=== PATIENT | female | born 1965 | race Caucasian/White ===

== ENCOUNTER → 2021-04-22 16:40 | Outpatient (BNVA) | payer SELFPAY | PROVIDERS: Visit Provider Nurse Practitioner Family | DX: Z20.822 Contact with and (suspected) exposure to COVID-19 (principal); J06.9 Acute upper respiratory infection, unspecified | CPT/HCPCS: 87635 ==

== ENCOUNTER 2021-06-05 13:30 | Emergency (ER) | payer SELFPAY ==
[2021-06-05 13:31] VITALS: BP 157/104; PULSE 105; RESP 14; O2SAT 94
--- NOTE | 2021-06-05 13:54 | W.ED.ALCOHOL ---
HPI - Alcohol General: Chief Complaint: Extremity Injury, Lower Stated Complaint: INTOXICATED Time Seen by Provider: 06/05/21 13:34 Source: patient Mode of arrival: EMS Limitations: no limitations History of Present Illness: Patient is a 56-year-old female who presents to ED today after she requested to be brought to the ED. According to patient she is homeless and was staying at the [facility] but states she was kicked out due to her being intoxicated. She states last night she was staying in a hotel room but apparently missed the checkout time and refused to leave her room so the hotel contacted the police. Police offered to bring patient to retirement for safekeeping and holding as she is homeless and it is currently below freezing temperatures and icing outside but patient refused. She states she wanted to come to the ED. upon arrival to the emergency department she has no physical complaints. She tells me she wants to go home although admittedly does not have a home. She states she has no friends or family to contact for a ride. MD complaint: alcohol intoxication Last drink: Hours (ago) Chronic alcohol use: Yes Previous visits for alcohol intoxication: No Recent trauma: No Associated symptoms: Reports no associated symptoms; Deny abdominal pain or seizure-like activity Treatments prior to arrival: none Review of Systems Const: Denies: fever(s), chills, body aches, fatigue or malaise Eyes: Denies: change in vision or blurry vision Card: Denies: chest pain Resp: Denies: dyspnea GI: Denies: abdominal pain Musc: Denies: neck pain, back pain, extremity pain or joint pain Skin/Breast: Denies: rash Neuro: Denies: headache(s), numbness in extremities, weakness in extremities, sensory changes, lack of coordination, difficulty walking, frequent falls, dizziness, vertigo, confusion, difficulty communicating thoughts or seizure-like activity [facility] ED PFSH: Medical History COPD (chronic obstructive pulmonary disease) HTN (hypertension) with goal to be determined Physical Exam Const: COMMON NORMALS: no acute distress, patient oriented x3 and alert GENERAL APPEARANCE: cooperative, disheveled and odor of alcohol detected ORIENTATION/CONSCIOUSNESS: Yes awake, Yes oriented to person, Yes oriented to place and Yes oriented to time HENMT: COMMON NORMALS: normocephalic and atraumatic HEAD & SCALP: normal to inspection, normocephalic and atraumatic Resp: COMMON NORMALS: normal respiratory effort and clear to auscultation bilaterally AUSCULTATION: clear to auscultation bilaterally Cardio: COMMON NORMALS: regular rhythm RATE: tachycardic (mild) RHYTHM: regular rhythm GI: COMMON NORMALS: Normal to inspection, nondistended, normoactive bowel sounds present, Soft to palpation, non-tender, No hepatosplenomegaly present and no masses PALPATION: Yes Soft to palpation and Yes No hepatosplenomegaly present Extremity: GENERAL: Yes normal exam except as noted Neuro: JOVANA COMA SCALE: document GCS findings Amelia coma scale eye opening: Spontaneous Amelia coma scale verbal response: Orientated Amelia coma scale motor response: Obey commands Amelia coma scale total score: 15 COMMON NORMALS: patient oriented x3, CN's II-XII intact bilaterally, moves all extremities, no focal motor deficits, no sensory deficits noted and gait normal SENSORIUM/ORIENTATION: Yes alert, Yes oriented to person, Yes oriented to place and Yes oriented to time Psych: COMMON NORMALS: denies hallucinations, denies homicidal ideation and denies suicidal ideation Course Vital Signs: Vital signs: Vital Signs Pulse Rate 105 H 06/05/21 13:31 Respiratory Rate 14 06/05/21 13:31 Blood Pressure 157/104 06/05/21 13:31 Pulse Oximetry 94 06/05/21 13:31 MDM - Alcohol Medical Decision Making Patient has no physical complaints at this time from ED address from an ED standpoint. I have offered to call any family or friend contacts for a ride however she states she does not have anybody that could come get her. She unfortunately has already been kicked out of our local homeless senior care as she drank knowing they had a zero tolerance policy. She states she has no money to pay for hotel room. I have offered her on several times to contact the retirement on her behalf to see if they would be willing to allow her to stay there for the evening but patient adamantly refuses stating she does not want to go. Patient is requesting discharge at this time. Patient was able to get up and ambulate on her own around her room and in the emergency department. Her gait is steady. I did have security come and talk to her to see if they had any other options. Discharge Plan Discharge Patient Disposition: Home Clinical Impression: Alcohol intoxication, Homeless Condition: Stable Prescriptions: No Action No Known Home Medications 0RF Discharge Orders: Discharge ED (Routine); Ordered 06/05/21 Ordered By: Erinn Patel Coding Level of Care Code ED Direct Sales Consultant for Chadwick Boateng
--- NOTE | 2021-06-05 14:51 | PC.NURSE ---
DISCHARGED PATIENT TO LOBBY- WITH 4 BAGS OF BELONGINGS, PATIENT ABLE TO AMBULATE- WAITING IN LOBBY
== END 2021-06-05 14:56 | disposition home or self-care (01) ==
PROVIDERS: Emergency Provider Physician Assistant
DX: F10.129 Alcohol abuse with intoxication, unspecified (principal); Z59.00 Homelessness unspecified; J44.9 Chronic obstructive pulmonary disease, unspecified; I10 Essential (primary) hypertension
CPT/HCPCS: 99282

== ENCOUNTER 2023-09-06 17:58 | Observation (INO) | payer MEDICAID, SELFPAY ==
[2023-09-06 17:59] VITALS: BP 150/99; PULSE 129; RESP 18; TEMP 36.7; O2SAT 90; BMI 25.0
--- NOTE | 2023-09-06 18:03 | XRR_ITS ---
PROCEDURE INFORMATION: Exam: XR Chest Exam date and time: 09/06/2023 6:28 PM Age: 58 years old Clinical indication: Other: RT sided weakness; Additional info: Right sided weakness TECHNIQUE: Imaging protocol: Radiologic exam of the chest. Views: 1 view. COMPARISON: No relevant prior studies available. FINDINGS: Lungs: Cdpyf-tkjjgdf-ufio-left mid to lower lung interstitial hazy densities. A few minute calcified lung nodules are seen incidentally. Underlying COPD. There are no priors. Pleural spaces: Unremarkable. No pleural effusion. No pneumothorax. Heart/Mediastinum: Unremarkable. No cardiomegaly. Bones/joints: Unremarkable. XR/XR chest 1V portable [id number] IMPRESSION: COPD with ruihy-hooitra-eyvh-left lower lung areas of atelectasis, scarring or pneumonitis.
--- NOTE | 2023-09-06 18:03 | CTR_ITS ---
PROCEDURE INFORMATION: Exam: CT Head Without Contrast Exam date and time: 09/06/2023 6:19 PM Age: 58 years old Clinical indication: Stroke-like symptoms; Altered mental status/memory loss; Additional info: Symptoms of acute stroke TECHNIQUE: Imaging protocol: Computed tomography of the head without contrast. Radiation optimization: All CT scans at this facility use at least one of these dose optimization techniques: automated exposure control; mA and/or kV adjustment per patient size (includes targeted exams where dose is matched to clinical indication); or iterative reconstruction. Other technique: STROKE PROTOCOL was implemented. COMPARISON: No relevant prior studies available. RADIATION DOSE METRICS: Total DLP (mGy-cm): 1023.14 FINDINGS: Brain: No focal hemorrhage or midline shift is identified. Left lower basal ganglia probable perivascular space. Advanced diffuse vascular calcification noted. Cerebral ventricles: No ventriculomegaly or evidence of acute hydrocephalus. Paranasal sinuses: The partially assessed sinuses are grossly clear. Mastoid air cells: Visualized mastoid air cells are well aerated. Bones: Unremarkable. No acute fracture. Soft tissues: Unremarkable. CT/CT head thrombolytic [id number] IMPRESSION: No acute intracranial abnormality. ASSESSMENT: ASPECTS ([place] Stroke Program Early CT Score) is 10.
--- NOTE | 2023-09-06 18:04 | ECG_ITS ---
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 Measurements Intervals [place] Rate: 124 P: 74 DC: 120 QRS: 75 QRSD: 77 T: 77 QT: 321 QTc: 462 Interpretive Statements SINUS TACHYCARDIA ABNORMAL RHYTHM ECG No previous ECG available for comparison Electronically Signed On 09-07-2023 8:35:26 CDT by Emmanuel Doss M.D. [email or web address] [email or web address] university of [facility]led[facility] medical [email or web address].[employer]/store/OM/[id number]
--- NOTE | 2023-09-06 18:05 | ED_ITS ---
HPI - Neuro Symptoms/Deficit 2 General: Chief Complaint: Weakness Stated Complaint: RIGHT SIDE WEAKNESS Time Seen by Provider: 09/06/23 18:03 History of Present Illness: Patient presents here by EMS with complaints of right-sided weakness. This started about noon today 6 hours ago but got worse at about 4 PM roughly 2 hours ago. EMS stated when they picked her up she did have weakness on her right arm and right lower extremity and was unable to get up from a seated position on her own. Upon arrival to the ER patient does not have weakness on right upper or lower extremity her NIH is 0 she does appear to be inebriated. Onset (ago): hour(s) Time: 12:00 Last Observed Normal: 12:00 Timing confirmed by: other (Patient) Location: right arm and right leg History of same: No Severity: mild Quality: weak Relieving factors: none Exacerbating factors: none On Anticoagulants: No Associated symptoms: Reports weakness Treatments Prior to Arrival: none Review of Systems 2 General: Reports: 10 or more systems reviewed and unremarkable except in HPI and below PFSH ED 2 PFSH: Medical History HTN (hypertension) with goal to be determined COPD (chronic obstructive pulmonary disease) NIH stroke score 2 NIHSS: Level Of Consciousness - 1a: 0 Level Of Consciousness Questions - 1b: Both Correct Level Of Consciousness Commands - 1c: Both Correct Best Gaze - 2: Normal Visual Lujan - 3: No Visual Loss Facial Palsy - 4: N ormal Motor Arm Right - 5: No Drift Motor Arm Left - 5: No Drift Motor Leg Right - 6: No Drift Motor Leg Left - 6: No Drift Limb Ataxia - 7: A bsent Sensory - 8: Normal Best Language - 9: No Aphasia Dysarthia - 10: Normal Extinction And Inattention - 11: 0 Score: Total Score: 0 Physical Exam 2 Const: COMMON NORMALS: no acute distress, average body habitus, patient oriented x3, no limitations, healthy appearing, alert and well nourished HENMT: COMMON NORMALS: normocephalic, atraumatic, hearing grossly normal bilaterally, external ears normal, Normal external nose present, moist oral mucous membranes and oropharynx normal HEAD & SCALP: normocephalic and atraumatic NOSE: Normal external nose present EXTERNAL EAR: Yes external ears normal Eye: COMMON NORMALS: Equal, round and reactive pupils present, EOMs intact bilaterally, conjunctivae normal and no scleral icterus CONJUNCTIVA: Yes conjunctivae normal PUPIL: Yes Equal, round and reactive pupils present Neck/C-Spine: COMMON NORMALS: full ROM, no lymphadenopathy, supple, no meningeal signs, no JVD and Thyroid normal THYROID: Thyroid normal Chest: COMMONS NORMALS: normal inspection of the chest and normal palpation of entire chest wall Resp: COMMON NORMALS: normal respiratory effort, No retractions, No use of accessory muscles and clear to auscultation bilaterally AUSCULTATION: clear to auscultation bilaterally Cardio: COMMON NORMALS: no JVD, regular rhythm, S1 normal heart sound present, S2 normal heart sound present, No gallops present (Cardio), No clicks present (Cardio), No murmurs present (Cardio) and No rub (Cardio); negative for regular rate (Mildly tachycardic) RATE: abnormal rate (Mildly tachycardic) RHYTHM: regular rhythm HEART SOUNDS: S1 normal heart sound present and S2 normal heart sound present GI: COMMON NORMALS: Normal to inspection, nondistended, normoactive bowel sounds present, Soft to palpation, non-tender, No hepatosplenomegaly present and no masses PALPATION: Yes Soft to palpation and Yes No hepatosplenomegaly present Extremity: NARRATIVE EXTREMITY EXAM: Equal strength in all 4 extremities bilaterally symmetrical Neuro: COMMON NORMALS: patient oriented x3, CN's II-XII intact bilaterally, moves all extremities, no focal motor deficits and no sensory deficits noted SENSORIUM/ORIENTATION: Yes alert MENINGEAL SIGNS: Yes no meningeal signs Course 2 Vital Signs: Vital signs: Vital Signs Temperature 98.0 F 09/06/23 17:59 Pulse Rate 129 H 09/06/23 17:59 Respiratory Rate 18 09/06/23 17:59 Blood Pressure 150/99 09/06/23 17:59 Pulse Oximetry 90 09/06/23 17:59 MDM - Neuro Symptoms/Deficit Medical Decision Making Patient ordered typical stroke workup with NIH as lab work chest x-ray head CT EKGs, white count was normal, potassium 3.1, anion gap 23.1, C-reactive protein 5.3, urine drug screen positive for marijuana, alcohol level 105, chest x-ray was read as COPD with areas of atelectasis scarring or pneumonitis, head CT was negative. Patient's symptoms were verified by EMS even noted resolved by the time she arrived here this would be consistent with a TIA which puts her at a high risk for CVA, patient will be placed in observation for further evaluation and treatment. Dr. Mari was consulted and agrees. Lab Data 09/06/23 17:44 09/06/23 17:44 Radiology Impressions Chest X-Ray 09/06/23 18:03 IMPRESSION: COPD with yqsfz-oilmaqu-ybhp-left lower lung areas of atelectasis, scarring or pneumonitis. Head CT 09/06/23 18:03 IMPRESSION: No acute intracranial abnormality. ASSESSMENT: ASPECTS ([place] Stroke Program Early CT Score) is 10. Laboratory Results WBC 10.72 10^3/uL (3.29-11.43) 09/06/23 17:44 RBC 6.08 10^6/uL (3.85-5.65) H 09/06/23 17:44 Hgb 17.70 g/dL (11.27-16.99) H 09/06/23 17:44 Hct 53.6 % (36-47) H 09/06/23 17:44 MCV 88.2 fl (85-98) 09/06/23 17:44 MCH 29.1 pg (27-33) 09/06/23 17:44 MCHC 33.0 g/dL (30-55) 09/06/23 17:44 RDW 14.8 % (12.1-15.1) 09/06/23 17:44 Plt Count 482 10^3/cmm (157-399) H 09/06/23 17:44 MPV 9.8 fL (7.4-10.4) 09/06/23 17:44 Neut % (Auto) 73.5 % 09/06/23 17:44 Lymph % (Auto) 15.0 % 09/06/23 17:44 [place] % (Auto) 9.8 % 09/06/23 17:44 Eos % (Auto) 0.7 % 09/06/23 17:44 Baso % (Auto) 0.5 % 09/06/23 17:44 Neut # (Auto) 7.88 10^3/uL (1.8-7.7) H 09/06/23 17:44 Lymph # (Auto) 1.6 10^3/uL (0.8-4.8) 09/06/23 17:44 [place] # (Auto) 1.1 10^3/uL (0.2-0.9) H 09/06/23 17:44 Eos # (Auto) 0.1 10^3/uL (0.0-0.8) 09/06/23 17:44 Baso # (Auto) 0.1 10^3/uL (0.0-0.1) 09/06/23 17:44 Nucleated RBC % (auto) 0 % 09/06/23 17:44 Nucleated RBCs # 0.0 /100WBC 09/06/23 17:44 PT 12.80 SECONDS (12.1-14.9) 09/06/23 17:44 INR 0.94 (0.8-1.2) 09/06/23 17:44 APTT 33.0 SECONDS (23.9-36.7) 09/06/23 17:44 Sodium 141 mmol/L (136-145) 09/06/23 17:44 Potassium 3.1 mmol/L (3.5-5.1) L 09/06/23 17:44 Chloride 101 mmol/L (98-107) 09/06/23 17:44 Carbon Dioxide 20 mmol/L (22-29) L 09/06/23 17:44 Anion Gap 23.1 (5-19) H 09/06/23 17:44 BUN 7 mg/dL (6-20) 09/06/23 17:44 Creatinine 0.8 mg/dL (0.5-0.9) 09/06/23 17:44 GFR Calculation 74.2 mL/min (90-130) L 09/06/23 17:44 Glucose 96 mg/dL (65-115) 09/06/23 17:44 POC Glucose 111 mg/dL (70-110) H 09/06/23 18:25 Calculated Osmolality 290 mOsm/kg (285-295) 09/06/23 17:44 Calcium 8.2 mg/dL (8.5-10.5) L 09/06/23 17:44 Magnesium 2.2 mg/dL (1.7-2.3) 09/06/23 17:44 Total Bilirubin 0.4 mg/dL (0.15-1.2) 09/06/23 17:44 AST 16 U/L (0-32) 09/06/23 17:44 ALT 14 U/L (0-33) 09/06/23 17:44 Alkaline Phosphatase 121 U/L (35-105) H 09/06/23 17:44 Troponin T Baseline 9 ng/L (0-10) 09/06/23 17:44 C-Reactive Protein 5.3 mg/L (0.0-4.9) H 09/06/23 17:44 Total Protein 7.5 g/dL (6.6-8.7) 09/06/23 17:44 Albumin 4.1 g/dL (3.5-5.2) 09/06/23 17:44 Globulin 3.4 g/dL (1.3-4.6) 09/06/23 17:44 TSH 3.06 uIU/mL (0.27-4.20) 09/06/23 17:44 Urine Color Yellow (Yellow) 09/06/23 19:37 Urine Appearance Cloudy (CLEAR) A 09/06/23 19:37 Urine pH 7 (5-7) 09/06/23 19:37 Ur Specific [place] 1.010 (1.005-1.030) 09/06/23 19:37 Urine Protein 1+ (Negative) H 09/06/23 19:37 Urine Glucose (UA) Norm (Normal) 09/06/23 19:37 Urine Ketones 1+ (Negative) H 09/06/23 19:37 Urine Blood Neg (Negative) 09/06/23 19:37 Urine Nitrate Negative (Negative) 09/06/23 19:37 Urine Bilirubin 1+ (Negative) H 09/06/23 19:37 Urine Urobilinogen Neg mg/dL (Negative) 09/06/23 19:37 Ur Leukocyte Esterase 1+ (Negative) H 09/06/23 19:37 Urine RBC 0-4 /hpf (0-2) H 09/06/23 19:37 Urine WBC 5-10 /hpf (0-5) H 09/06/23 19:37 Ur Squamous Epith Cells 5-10 /hpf (0-5) H 09/06/23 19:37 Amorphous Sediment Not Reportable 09/06/23 19:37 Urine Bacteria 1+ /hpf (NONE) H 09/06/23 19:37 Urine Mucus 1+ /hpf 09/06/23 19:37 Urine Opiates Screen Negative ng/mL (Negative) 09/06/23 19:37 Ur Barbiturates Screen Negative ng/mL (Negative) 09/06/23 19:37 Ur Phencyclidine Scrn Negative ng/mL (Negative) 09/06/23 19:37 Ur Amphetamines Screen Negative ng/mL (Negative) 09/06/23 19:37 U Benzodiazepines Scrn Negative ng/mL (Negative) 09/06/23 19:37 Urine Cocaine Screen Negative ng/mL (Negative) 09/06/23 19:37 U Marijuana (THC) Screen Positive ng/mL (Negative) H 09/06/23 19:37 Ethyl Alcohol 105 mg/dL (0-10) H 09/06/23 17:44 All radiology interpretation(s) finalized by discharge EKG Data EKG 1: I personally reviewed and interpreted this EKG as follows: EKG interpretation date: 09/06/23 EKG interpretation time: 18:12 Prior EKG tracings: not available for review Interpretation: Ventricular rate 124 bpm, KS interval 120, QRS duration 77, QTc of 395 Discharge Plan Discharge Patient Disposition: Placed in Observation Clinical Impression: Brain TIA Alcohol intoxication Qualifiers: Complication of substance-induced condition: uncomplicated Qualified Code(s): F 10.920 - Alcohol use, unspecified with intoxication, uncomplicated Coding Level of Care Code ED Care Manager Cna for Chadwick Boateng
[2023-09-06 18:22] LABS: Basophils # 0.1 10^3/uL (0.0-0.1); Basophils % 0.5 %; Eosinophils # 0.1 10^3/uL (0.0-0.8); Eosinophils % 0.7 %; Hematocrit 53.6 % (36-47); Lymphocytes # 1.6 10^3/uL (0.8-4.8); Mean Corpuscular Hemoglobin 29.1 pg (27-33); Mean Corpuscular Volume 88.2 fl (85-98); Mean Platelet Volume 9.8 fL (7.4-10.4); Monocytes # 1.1 10^3/uL (0.2-0.9); Monocytes % 9.8 %; Neutrophils # 7.88 10^3/uL (1.8-7.7); Neutrophils % 73.5 %; Nucleated Red Blood Cells % 0 %; Platelet Count 482 10^3/cmm (157-399); Red Blood Count 6.08 10^6/uL (3.85-5.65); Red Cell Distribution Width 14.8 % (12.1-15.1); White Blood Count 10.72 10^3/uL (3.29-11.43)
[2023-09-06 18:29] LABS: Glucose Point of Care 111 mg/dL (70-110)
[2023-09-06 18:30] LABS: INR 0.94 (0.8-1.2)
[2023-09-06] MEDS: sodium chloride 0.9% 1,000 ML 999 ML IV (18:33)
[2023-09-06 18:43] LABS: Troponin(5th) Baseline 9 ng/L (0-10)
[2023-09-06 18:50] LABS: Alanine Aminotransferase 14 U/L (0-33); Albumin Level 4.1 g/dL (3.5-5.2); Alcohol Level 105 mg/dL (0-10); Alkaline Phosphatase 121 U/L (35-105); Anion Gap 23.1 (5-19); Aspartate Amino Transferase 16 U/L (0-32); Blood Urea Nitrogen 7 mg/dL (6-20); C Reactive Protein 5.3 mg/L (0.0-4.9); Calcium 8.2 mg/dL (8.5-10.5); Carbon Dioxide 20 mmol/L (22-29); Chloride 101 mmol/L (98-107); Creatinine Clr Calc Pharmacy 67.4718; Globulin 3.4 g/dL (1.3-4.6); Glomerular Filtration Rate 74.2 mL/min (90-130); Glucose 96 mg/dL (65-115); Magnesium 2.2 mg/dL (1.7-2.3); Osmolality Calculated 290 mOsm/kg (285-295); Potassium 3.1 mmol/L (3.5-5.1); Sodium 141 mmol/L (136-145); Thyroid Stimulating Hormone 3.06 uIU/mL (0.27-4.20); Total Bilirubin 0.4 mg/dL (0.15-1.2); Total Protein 7.5 g/dL (6.6-8.7)
[2023-09-06 19:54] LABS: Protein Urine 1+ (Negative); Urine Appearance Cloudy (CLEAR); Urine Color Yellow (Yellow); pH Urine 7 (5-7)
[2023-09-06 19:55] LABS: Add Urine Microscopic? YES; Amphetamines Screen Urine Negative (Negative); Bacteria Urine 1+ /hpf; Barbiturates Screen Urine Negative (Negative); Benzodiazepines Screen Urine Negative (Negative); Bilirubin Urine 1+ (Negative); Blood Urine Neg (Negative); Cocaine Screen Urine Negative (Negative); Glucose Urine UA Norm (Normal); Ketones Urine 1+ (Negative); Leukocyte Esterase Urine 1+ (Negative); Mucus Urine 1+ /hpf; Nitrate Urine Negative (Negative); Opiate Screen Urine Negative (Negative); PCP Screen Urine Negative (Negative); RBC Urine 0-4 /hpf (0-2); THC Screen Urine Positive (Negative); Urobilinogen Urine Neg (Negative)
[2023-09-06 20:30] LABS: Troponin 5 2HR 9.42 ng/L (0-10); Troponin 5 2HR Delta 0.42 ABS# (0-10)
[2023-09-06 20:38] VITALS: BP 167/144; PULSE 123; RESP 18; O2SAT 90
[2023-09-06] MEDS: LORazepam 2 mg/mL INJ 10 mL MDV 1 MG IVP (20:50)
[2023-09-06 21:14] VITALS: BP 168/110; PULSE 119; RESP 20; TEMP 36.6; O2SAT 95
--- NOTE | 2023-09-06 21:30 | P.HP_ITS ---
Providers/Chief Complaint 2 Admitting Physician: Nichelle Mari MD Chief Complaint: RIGHT SIDE WEAKNESS History of Present Illness Ade Mcpherson is a 58 year old female With past medical history of hypertension and COPD, noncompliant to medication, noncompliant to seeking medical care presented to the hospital today via EMS for right-sided weakness. About 6 to 7 hours ago she was picked up by EMS and at that time did have right-sided weakness and light lower extremity weakness and she was unable to get up from a seated position. On arrival to ER she did not have much symptoms NIH 0 patient appears to be intoxicated. CT head negative for acute bleed. Chest x-ray shows right greater than left lower lung areas of atelectasis scarring or pneumonitis. EKG nonischemic, and gap 23.1, C-reactive protein 5.3, urine drug screen positive for marijuana, alcohol level 105. Patient denies nausea vomiting diarrhea chest pain shortness of breath at this time. She states she does not have any right-sided weakness however when asked that it was the reason for her arrival to ER she states yes she feels slightly weak on that side. Somewhat of a poor historian. Medications/Allergies Home Medications Medication Instructions Recorded Confirmed Last Taken Type No Known Home Medications 04/22/21 04/23/21 Unknown History Allergies Allergy/AdvReac Type Severity Reaction Status Date / Time No Known Allergies Allergy Unverified 04/23/21 11:22 PFSH Acute 2 PFSH: Medical History HTN (hypertension) with goal to be determined COPD (chronic obstructive pulmonary disease) Vitals/I&O/Wt Last Vital Signs Temp 98.0 F 09/06/23 17:59 Pulse 123 H 09/06/23 20:38 Resp 18 09/06/23 20:38 BP 167/144 09/06/23 20:38 Pulse Ox 90 09/06/23 20:38 O2 Del Method Nasal Cannula 09/06/23 21:16 09/06/23 09/06/23 09/06/23 06:59 14:59 22:59 Intake Total 200 / 200 Balance 200 / 200 Weight last 48 hrs Weight 54.431 kg Weight 54.431 kg Physical Exam 2 Narrative: General: Alert oriented x3, patient seen sitting up in bed appearing comfortable. HEENT: Normocephalic, atraumatic, EOMI, breathing room air Cardio: Regular rate rhythm, normal S1-S2 Respiratory: Good bilateral air entry, no wheezes no rhonchi appreciated GI: Abdomen soft, nontender, nondistended, bowel sounds + Extremities: no edema, no cyanosis Neuro: Cranial nerve 2-12 intact, right upper and lower extremity weakness noted 4 out of 5, left side 5 out of 5, gait not tested as patient is currently intoxicated. Follows all commands moves all 4 extremities. Data 09/06/23 17:44 09/06/23 17:44 A&P Assessment and plan (1) Alcohol intoxication: Qualifiers: Complication of substance-induced condition: uncomplicated Qualified Code(s): F10.920 - Alcohol use, unspecified with intoxication, uncomplicated (2) HTN (hypertension) with goal to be determined: (3) Brain TIA: (4) COPD (chronic obstructive pulmonary disease): (5) Hypertension: (6) Hirsutism: Plan #Right-sided weakness #Alcohol intoxication #Agitation, restlessness possibly secondary to above #Probable TIA #COPD, not in exacerbation #Hypertension #Noncompliance ? Says she has a history of high blood pressure but does not take any medications. Currently intoxicated with alcohol level high. Does not complain of any symptoms other than right-sided weakness which she had to be reminded of. ? ABCD score 4. Moderate risk for stroke. ? Check CTA head and neck ? CT head negative for acute bleed or acute infarction ? Placed on CIWA protocol ? Check lipid panel, TSH, hemoglobin A1c ? Check testosterone level. Patient has evidence of hirsutism. She may benefit from endocrinology follow-up as an outpatient ? Check echo ? Placed on telemetry ? Neurochecks every hour ? Add amlodipine 10 mg daily ? Continue to monitor on CIWA protocol. If blood pressure remains high despite Ativan may add second agent with amlodipine. Currently I will hold off. ? UA abnormal however not a clean-catch. Does not report any dysuria or UTI symptoms. Hold off of antibiotics. ? Patient hemoconcentrated. Hemoglobin 17.7, platelets 42, anion gap 23.1. Will place on normal saline 125 cc/h ? Placed on thiamine, folic acid Full code DVT prophylaxis: Heparin SQ twice daily Attestations 2 Medical Necessity Statement*: Observation admission for TIA, alcohol intoxication Diagnoses Alcohol intoxication F10.920 Complication of substance-induced condition: uncomplicated HTN (hypertension) with goal to be determined I10 Brain TIA G45.9 COPD (chronic obstructive pulmonary disease) J44.9 Hypertension I10 Hirsutism L68.0
--- NOTE | 2023-09-06 21:38 | CTR_ITS ---
PROCEDURE INFORMATION: Exam: CTA Head With Contrast, Arteriography Exam date and time: 09/06/2023 10:44 PM Age: 58 years old Clinical indication: Patient HX: RT upper extremity weakness/numbness. ; Additional info: TIA TECHNIQUE: Imaging protocol: Computed tomographic angiography of the head with contrast. Exam focused on the arteries. 3D rendering (Not supervised by radiologist): MIP and/or 3D reconstructed images were created by the technologist. Radiation optimization: All CT scans at this facility use at least one of these dose optimization techniques: automated exposure control; mA and/or kV adjustment per patient size (includes targeted exams where dose is matched to clinical indication); or iterative reconstruction. Contrast material: OMNI 350; Contrast volume: 100 ml; Contrast route: INTRAVENOUS (IV); COMPARISON: CT head thrombolytic [id number] 09/06/2023 6:19 PM RADIATION DOSE METRICS: Total DLP (mGy-cm): 389.12 FINDINGS: ANTERIOR CIRCULATION: Right internal carotid artery: Intracranial segment is patent with no significant stenosis. No aneurysm. Mild cavernous calcified plaque. Right middle cerebral artery: No occlusion or significant stenosis. No aneurysm. Right anterior cerebral artery: No occlusion or significant stenosis. No aneurysm. Left internal carotid artery: Intracranial segment is patent with no significant stenosis. No aneurysm. Mild cavernous calcified plaque. Left middle cerebral artery: No occlusion or significant stenosis. No aneurysm. Left anterior cerebral artery: No occlusion or significant stenosis. No aneurysm. POSTERIOR CIRCULATION: Right vertebral artery: No occlusion or significant stenosis. No aneurysm. Left vertebral artery: No occlusion or significant stenosis. No aneurysm. Basilar artery: No occlusion or significant stenosis. No aneurysm. Right posterior cerebral artery: No occlusion or significant stenosis. No aneurysm. Left posterior cerebral artery: No occlusion or significant stenosis. No aneurysm. Brain: No focal hemorrhage or midline shift identified. Cerebral ventricles: No evidence of ventriculomegaly or hydrocephalus. The ventricles seem age-appropriate. Bones/joints: Unremarkable. No acute fracture. Soft tissues: Unremarkable. PROCEDURE INFORMATION: Exam: CTA Neck With Contrast Exam date and time: 09/06/2023 10:44 PM Age: 58 years old Clinical indication: Patient HX: RT upper extremity weakness/numbness. ; Additional info: TIA TECHNIQUE: Imaging protocol: Computed tomographic angiography of the neck with contrast. Exam focused on the cervical segments of the vasculature. 3D rendering (Not supervised by radiologist): MIP and/or 3D reconstructed images were created by the technologist. Radiation optimization: All CT scans at this facility use at least one of these dose optimization techniques: automated exposure control; mA and/or kV adjustment per patient size (includes targeted exams where dose is matched to clinical indication); or iterative reconstruction. Contrast material: OMNI 350; Contrast volume: 100 ml; Contrast route: INTRAVENOUS (IV); COMPARISON: CT head thrombolytic [id number] 09/06/2023 6:19 PM RADIATION DOSE METRICS: Total DLP (mGy-cm): 389.12 FINDINGS: Right common carotid artery: No stenosis. No dissection or occlusion. Mild carotid bulb plaque. Right internal carotid artery: No stenosis of the extracranial segment. No dissection or occlusion. Right external carotid artery: No occlusion or high-grade stenosis identififed. Left common carotid artery: No stenosis. No dissection or occlusion. Ddxq-tc-bcsruorn carotid bulb plaque. Left internal carotid artery: No stenosis of the extracranial segment. No dissection or occlusion. Left external carotid artery: No occlusion or high-grade stenosis identififed. Right vertebral artery: No stenosis. No dissection or occlusion. Dominant. 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 Its mid to distal portion is small but patent. Lymph nodes: Mild likely reactive mediastinal lymphadenopathy. Soft tissues: No significant soft tissue swelling or other acute finding noted. Bones/joints: No acute fracture. Lungs: Upper lungs show severe scarring and severe emphysematous change. CT/CT angio headneck* [id number] IMPRESSION: No large vessel high-grade stenosis or occlusion. IMPRESSION: 1. No ICA high-grade stenosis or occlusion. 2. 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 Its mid to distal portion is small but patent. This finding is of uncertain age. There are no priors. 3. The exam is motion limited. 4. Severe emphysema. REFERENCES: NASCET CRITERIA. The degree of stenosis in the cervical segment of the internal carotid artery is based on NASCET criteria. Normal is no stenosis. Mild is less than 50% stenosis. Moderate is 50-69% stenosis. Severe is 70% to 99% stenosis. Total occlusion is no detectable patent lumen.
[2023-09-06] MEDS: heparin 5,000 unit/mL INJ 1 mL 5000 UNIT SUBCUT (21:55)
[2023-09-06 22:03] LABS: Estmated Average Glucose 111; Hemoglobin A1C 5.5 % (4.0-6.0)
[2023-09-06 22:07] LABS: Glucose Point of Care 84 mg/dL (70-110)
--- NOTE | 2023-09-06 22:08 | ECG_ITS ---
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 Measurements Intervals [place] Rate: 117 P: 75 CO: 107 QRS: 78 QRSD: 85 T: 76 QT: 330 QTc: 461 Interpretive Statements SINUS TACHYCARDIA WITH SHORT CO INTERVAL POSSIBLE RIGHT ATRIAL ENLARGEMENT [0.25mV P-WAVE] MODERATE ST DEPRESSION [0.05+ mV ST DEPRESSION] Compared to ECG 09/06/2023 18:12:30 Short CO interval now present ST (T wave) deviation now present Electronically Signed On 09-07-2023 8:40:26 CDT by Emmanuel Doss M.D. [email or web address]
[2023-09-06 22:12] LABS: Procalcitonin 0.03 ng/mL (0-0.5); Thyroid Stimulating Hormone 2.03 uIU/mL (0.27-4.20)
[2023-09-06] MEDS: sodium chloride 0.9% 1,000 ML 100 ML IV (22:16)
[2023-09-06 22:23] LABS: Chol HDL Ratio 3.82 mg/dL (0.0-4.40); Cholesterol 149 mg/dL (0-200); HDL Cholesterol 39 mg/dL (60-100); LDL Cholesterol Calculated 78 mg/dL (50-129); Triglycerides 161 mg/dL (0-150); VLDL Cholestrol Calculation 32 mg/dL (0-30)
[2023-09-06 22:30] VITALS: O2SAT 95
[2023-09-06] MEDS: iohexol 350 mg/mL 500 mL Btl (per mL) IV (22:45)
[2023-09-06 23:34] VITALS: PULSE 118
[2023-09-07] VITALS (8 sets, daily range): BP systolic 150–180; BP diastolic 99–119; PULSE 101–113; RESP 18–20; TEMP 36.2–36.4; O2SAT 92–96
[2023-09-07] MEDS: hyDRALAzine 20 mg/mL INJ 1 mL 10 MG IVP (00:54)
[2023-09-07] MEDS: LORazepam 2 mg/mL INJ 10 mL MDV IVP (01:16)
--- NOTE | 2023-09-07 01:28 | ECG_ITS ---
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 Measurements Intervals [place] Rate: 131 P: 76 PA: 127 QRS: 80 QRSD: 72 T: 63 QT: 297 QTc: 439 Interpretive Statements SINUS TACHYCARDIA ST DEPRESSION, CONSIDER SUBENDOCARDIAL INJURY [0.1+ mV ST DEPRESSION] Compared to ECG 09/06/2023 22:08:07 Short PA interval no longer present ST (T wave) deviation still present Electronically Signed On 09-07-2023 8:40:34 CDT by Emmanuel Doss M.D. [id number]
[2023-09-07 02:24] LABS: Troponin 5 6HR 7.41 ng/L (0-10)
[2023-09-07 02:25] LABS: Troponin 5 6HR Delta -1.59 ng/L (0-12)
[2023-09-07] MEDS: labetalol 5 mg/mL SDV 20mL 10 MG IVP (03:43)
[2023-09-07 05:33] LABS: Basophils % 0.4 %; Eosinophils # 0.1 10^3/uL (0.0-0.8); Eosinophils % 0.5 %; Hematocrit 51.1 % (36-47); Lymphocytes # 1.3 10^3/uL (0.8-4.8); Lymphocytes % 12.1 %; Mean Corpuscular HGB Conc 31.9 g/dL (30-55); Mean Corpuscular Hemoglobin 28.7 pg (27-33); Mean Platelet Volume 9.7 fL (7.4-10.4); Monocytes % 9.9 %; Neutrophils # 7.95 10^3/uL (1.8-7.7); Neutrophils % 76.7 %; Nucleated Red Blood Cells % 0 %; Platelet Count 412 10^3/cmm (157-399); Red Blood Count 5.68 10^6/uL (3.85-5.65); Red Cell Distribution Width 14.9 % (12.1-15.1); White Blood Count 10.36 10^3/uL (3.29-11.43)
[2023-09-07 05:47] LABS: INR 0.98 (0.8-1.2)
[2023-09-07 05:53] LABS: Alanine Aminotransferase 13 U/L (0-33); Albumin Level 3.4 g/dL (3.5-5.2); Alkaline Phosphatase 102 U/L (35-105); Blood Urea Nitrogen 7 mg/dL (6-20); Calcium 7.9 mg/dL (8.5-10.5); Carbon Dioxide 21 mmol/L (22-29); Chloride 104 mmol/L (98-107); Creatinine Clr Calc Pharmacy 118.7501; Globulin 3.1 g/dL (1.3-4.6); Glomerular Filtration Rate 127.6 mL/min (90-130); Glucose 84 mg/dL (65-115); Osmolality Calculated 281 mOsm/kg (285-295); Phosphorus 2.6 mg/dL (2.5-4.5); Sodium 137 mmol/L (136-145); Total Bilirubin 0.7 mg/dL (0.15-1.2); Total Protein 6.5 g/dL (6.6-8.7)
[2023-09-07 05:55] LABS: Anion Gap 15.9 (5-19); Aspartate Amino Transferase 18 U/L (0-32); Potassium 3.9 mmol/L (3.5-5.1)
[2023-09-07] MEDS: heparin 5,000 unit/mL INJ 1 mL 5000 UNIT SUBCUT (08:52)
[2023-09-07] MEDS: aspirin 81 mg EC Tablet PO (08:52)
[2023-09-07] MEDS: folic acid 1 mg Tablet PO (08:52)
[2023-09-07] MEDS: clopidogrel 75 mg Tablet PO (08:52)
[2023-09-07] MEDS: multivitamin therapeutic Tablet 1 TAB PO (08:52)
[2023-09-07] MEDS: thiamine 100 mg Tablet PO (08:52)
--- NOTE | 2023-09-07 12:44 | PM.DCS ---
Discharge Providers Date of Admission: 09/06/23 20:17 Date of Discharge: September 07, 2023 Attending Provider at Admission: Nichelle Mari MD Attending Provider at Discharge: Augustine Treadwell MD Diagnoses at Discharge Discharge Diagnosis (1) Alcohol intoxication: Status: Acute Qualifiers: Complication of substance-induced condition: uncomplicated Qualified Code(s): F10.920 - Alcohol use, unspecified with intoxication, uncomplicated (2) HTN (hypertension) with goal to be determined: Status: Acute (3) Brain TIA: Status: Acute (4) COPD (chronic obstructive pulmonary disease): Status: Acute (5) Hypertension: Status: Acute (6) Hirsutism: Status: Acute Reason for Visit Reason for Visit: RIGHT SIDE WEAKNESS Hospital Course Hospital Course Ade Mcpherson is a 58 year old female With past medical history of hypertension and COPD, noncompliant to medication, noncompliant to seeking medical care presented to the hospital today via EMS for right-sided weakness prior in the day. Upon evaluation her right-sided weakness had resolved prior to arrival to the emergency department. Her NIH score was found to be 0. Head CT was negative for any acute findings. Head and neck CTA showed no ICA high-grade stenosis or occlusion. The left proximal vertebral artery was seen occluded at the lower cervical spine and its origin was not observed; however its mid and distal portions were small but patent. This finding was radiographically of uncertain age, however regardless of timing it would not explain her right-sided weakness as this is the posterior circulation. Patient was found to be intoxicated with alcohol which she endorses a long history of alcohol abuse. She was admitted to observation for further monitoring. Her neurological exam remained unchanged with an NIH of 0. She was treated for transient ischemic attack with dual antiplatelet therapy for 21 days followed by monotherapy. She was treated with high intensity statin. MRI imaging was not available given holiday weekend patient was agreeable for close outpatient follow-up for MRI of head as well as MRA of neck to further evaluate proximal neck vertebral artery finding. She was found to have elevated blood pressure consistent with hypertension. She was started on amlodipine. She was not started on further diuretics due to her history of alcoholism and risk of hyponatremia. She was counseled to watch her home blood pressure and bring to her outpatient provider for further titration of antihypertensives. Patient was counseled on alcohol cessation. She was treated with CIWA protocol while being observed. She is scribed multivitamin, thiamine, folic acid at discharge. She was discharged to home in stable condition. She is to follow-up with a primary care provider within 1 week. She was noted to have hirsutism which we will defer management to her PCP. Physical Exam Narrative: General: Patient is awake. Appears chronically ill. Head: Normocephalic. Atraumatic. EOM intact. Neck: No JVD. Cardiovascular: RRR. No gallops. No murmurs. No peripheral edema. Lungs: Clear to auscultation, no use of accessory muscles, no crackles or wheezes. Skin: No jaundice. No rashes. Abdomen: Normal bowel sounds, abdomen soft and nontender. Genito Urinary: Genital exam not performed since complaints not related. Rectal: Rectal exam not performed since no symptoms indicated blood loss. Extremities: No cyanosis or clubbing. Musculoskeletal: 5/5 strength, normal range of motion, no swollen or erythematous joints. Neurological: Strength 5 out of 5 in all extremities. No focal neurological deficits. Cranial nerves II through XII grossly intact. Discharge Data Studies Completed and Pending Completed Studies During Hospitalization Category Date Time Status CT head thrombolytic [id number] Stat Cat Scan 09/06/23 18:03 Completed CTA head neck [CT angio headneck* [id number]] Stat Cat Scan 09/06/23 21:38 Completed XR chest 1V portable [id number] Stat Exams 09/06/23 18:03 Completed Pending at discharge Category Date Time Status CV. echo complete* [id number] Routine Ultrasound 09/07/23 21:36 Taken Radiology Impressions Chest X-Ray 09/06/23 18:03 IMPRESSION: COPD with crmhl-vojfvye-zwao-left lower lung areas of atelectasis, scarring or pneumonitis. Head CT 09/06/23 18:03 IMPRESSION: No acute intracranial abnormality. ASSESSMENT: ASPECTS (Sarahy Stroke Program Early CT Score) is 10. Head/Neck CTA 09/06/23 21:38 IMPRESSION: No large vessel high-grade stenosis or occlusion. IMPRESSION: 1. No ICA high-grade stenosis or occlusion. 2. 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 Its mid to distal portion is small but patent. This finding is of uncertain age. There are no priors. 3. The exam is motion limited. 4. Severe emphysema. REFERENCES: NASCET CRITERIA. The degree of stenosis in the cervical segment of the internal carotid artery is based on NASCET criteria. Normal is no stenosis. Mild is less than 50% stenosis. Moderate is 50-69% stenosis. Severe is 70% to 99% stenosis. Total occlusion is no detectable patent lumen. Laboratory Results WBC 10.36 10^3/uL (3.29-11.43) 09/07/23 05:07 RBC 5.68 10^6/uL (3.85-5.65) H 09/07/23 05:07 Hgb 16.30 g/dL (11.27-16.99) 09/07/23 05:07 Hct 51.1 % (36-47) H 09/07/23 05:07 MCV 90.0 fl (85-98) 09/07/23 05:07 MCH 28.7 pg (27-33) 09/07/23 05:07 MCHC 31.9 g/dL (30-55) 09/07/23 05:07 RDW 14.9 % (12.1-15.1) 09/07/23 05:07 Plt Count 412 10^3/cmm (157-399) H 09/07/23 05:07 MPV 9.7 fL (7.4-10.4) 09/07/23 05:07 Neut % (Auto) 76.7 % 09/07/23 05:07 Lymph % (Auto) 12.1 % 09/07/23 05:07 [place] % (Auto) 9.9 % 09/07/23 05:07 Eos % (Auto) 0.5 % 09/07/23 05:07 Baso % (Auto) 0.4 % 09/07/23 05:07 Neut # (Auto) 7.95 10^3/uL (1.8-7.7) H 09/07/23 05:07 Lymph # (Auto) 1.3 10^3/uL (0.8-4.8) 09/07/23 05:07 [place] # (Auto) 1.0 10^3/uL (0.2-0.9) H 09/07/23 05:07 Eos # (Auto) 0.1 10^3/uL (0.0-0.8) 09/07/23 05:07 Baso # (Auto) 0.0 10^3/uL (0.0-0.1) 09/07/23 05:07 Nucleated RBC % (auto) 0 % 09/07/23 05:07 Nucleated RBCs # 0.0 /100WBC 09/07/23 05:07 PT 13.20 SECONDS (12.1-14.9) 09/07/23 05:07 INR 0.98 (0.8-1.2) 09/07/23 05:07 APTT 33.0 SECONDS (23.9-36.7) 09/06/23 17:44 Sodium 137 mmol/L (136-145) 09/07/23 05:07 Potassium 3.9 mmol/L (3.5-5.1) 09/07/23 05:07 Chloride 104 mmol/L (98-107) 09/07/23 05:07 Carbon Dioxide 21 mmol/L (22-29) L 09/07/23 05:07 Anion Gap 15.9 (5-19) 09/07/23 05:07 BUN 7 mg/dL (6-20) 09/07/23 05:07 Creatinine 0.5 mg/dL (0.5-0.9) 09/07/23 05:07 GFR Calculation 127.6 mL/min (90-130) 09/07/23 05:07 Glucose 84 mg/dL (65-115) 09/07/23 05:07 POC Glucose 84 mg/dL (70-110) 09/06/23 22:04 Estimat Average Glucose 111 09/06/23 17:44 Hemoglobin A1c 5.5 % (4.0-6.0) 09/06/23 17:44 Calculated Osmolality 281 mOsm/kg (285-295) L 09/07/23 05:07 Calcium 7.9 mg/dL (8.5-10.5) L 09/07/23 05:07 Phosphorus 2.6 mg/dL (2.5-4.5) 09/07/23 05:07 Magnesium 2.0 mg/dL (1.7-2.3) 09/07/23 05:07 Total Bilirubin 0.7 mg/dL (0.15-1.2) 09/07/23 05:07 AST 18 U/L (0-32) 09/07/23 05:07 ALT 13 U/L (0-33) 09/07/23 05:07 Alkaline Phosphatase 102 U/L (35-105) 09/07/23 05:07 Troponin T Baseline 9 ng/L (0-10) 09/06/23 17:44 Troponin T 120 Minute 9.42 ng/L (0-10) 09/06/23 20:03 Delta Troponin T 0.42 ABS# (0-10) 09/06/23 20:03 Troponin T Hi Sens 6Hr 7.41 ng/L (0-10) 09/07/23 01:41 Troponin T Hi Sens 6Hr Delta -1.59 ng/L (0-12) L 09/07/23 01:41 C-Reactive Protein 5.3 mg/L (0.0-4.9) H 09/06/23 17:44 Total Protein 6.5 g/dL (6.6-8.7) L 09/07/23 05:07 Albumin 3.4 g/dL (3.5-5.2) L 09/07/23 05:07 Globulin 3.1 g/dL (1.3-4.6) 09/07/23 05:07 Triglycerides 161 mg/dL (0-150) H 09/06/23 20:03 Cholesterol 149 mg/dL (0-200) 09/06/23 20:03 LDL Cholesterol, Calc 78 mg/dL (50-129) 09/06/23 20:03 Total VLDL Cholesterol 32 mg/dL (0-30) H 09/06/23 20:03 HDL Cholesterol 39 mg/dL (60-100) L 09/06/23 20:03 Cholesterol/HDL Ratio 3.82 mg/dL (0.0-4.40) 09/06/23 20:03 Procalcitonin 0.03 ng/mL (0-0.5) 09/06/23 20:03 TSH 2.03 uIU/mL (0.27-4.20) 09/06/23 20:03 Urine Color Yellow (Yellow) 09/06/23 19:37 Urine Appearance Cloudy (CLEAR) A 09/06/23 19:37 Urine pH 7 (5-7) 09/06/23 19:37 Ur Specific [place] 1.010 (1.005-1.030) 09/06/23 19:37 Urine Protein 1+ (Negative) H 09/06/23 19:37 Urine Glucose (UA) Norm (Normal) 09/06/23 19:37 Urine Ketones 1+ (Negative) H 09/06/23 19:37 Urine Blood Neg (Negative) 09/06/23 19:37 Urine Nitrate Negative (Negative) 09/06/23 19:37 Urine Bilirubin 1+ (Negative) H 09/06/23 19:37 Urine Urobilinogen Neg mg/dL (Negative) 09/06/23 19:37 Ur Leukocyte Esterase 1+ (Negative) H 09/06/23 19:37 Urine RBC 0-4 /hpf (0-2) H 09/06/23 19:37 Urine WBC 5-10 /hpf (0-5) H 09/06/23 19:37 Ur Squamous Epith Cells 5-10 /hpf (0-5) H 09/06/23 19:37 Amorphous Sediment Not Reportable 09/06/23 19:37 Urine Bacteria 1+ /hpf (NONE) H 09/06/23 19:37 Urine Mucus 1+ /hpf 09/06/23 19:37 Urine Opiates Screen Negative ng/mL (Negative) 09/06/23 19:37 Ur Barbiturates Screen Negative ng/mL (Negative) 09/06/23 19:37 Ur Phencyclidine Scrn Negative ng/mL (Negative) 09/06/23 19:37 Ur Amphetamines Screen Negative ng/mL (Negative) 09/06/23 19:37 U Benzodiazepines Scrn Negative ng/mL (Negative) 09/06/23 19:37 Urine Cocaine Screen Negative ng/mL (Negative) 09/06/23 19:37 U Marijuana (THC) Screen Positive ng/mL (Negative) H 09/06/23 19:37 Ethyl Alcohol 105 mg/dL (0-10) H 09/06/23 17:44 Vitals Last Vital Signs Temp 97.2 F L 09/07/23 11:21 Pulse 109 H 09/07/23 11:21 Resp 19 H 09/07/23 11:21 BP 162/108 09/07/23 11:21 Pulse Ox 93 09/07/23 11:21 O2 Del Method Room Air 09/07/23 11:21 Discharge Plan Discharge Patient Disposition: Home Condition: Stable Prescriptions: New aspirin 81 mg Tablet,Delayed Release (Dr/Ec) 81 mg PO DAILY 30 Days Qty: 30 0RF atorvastatin 40 mg Tablet 80 mg PO BEDTIME Qty: 30 0RF clopidogrel 75 mg Tablet 75 mg PO DAILY Qty: 21 0RF folic acid 1 mg Tablet 1 mg PO DAILY Qty: 30 0RF multivitamin with folic acid [Thera] 400 mcg Tablet 1 tab PO DAILY Qty: 30 0RF thiamine mononitrate (vit B1) [Vitamin B-1 (mononitrate)] 100 mg Tablet 100 mg PO DAILY Qty: 30 0RF amlodipine [Norvasc] 5 mg tablet 5 mg PO BID Qty: 60 0RF No Action No Known Home Medications Discharge Orders: Discharge Order (Routine); Ordered 09/07/23 Ordered By: Augustine Treadwell Other Ambulatory Orders: MR angio neck w con* [id number] (Routine) Timeframe: 1 Week Facility: [facility] - Location: Radiology [facility] Ordered By: Augustine Treadwell MR head wo con* [id number] (Routine) Timeframe: 1 Week Facility: [facility] - Location: Radiology [facility] Ordered By: Augustine Treadwell Discharge Diet: Cardiac, Low Salt and Low Cholesterol Discharge Activity: Resume usual activity and Increase activity as tolerated Patient Instructions: Aspirin (By mouth), Folic Acid (By mouth), Amlodipine (By mouth), Atorvastatin (By mouth), Clopidogrel (By mouth), Stroke (GEN), Opioid Safety, Stroke Stoplight Activity Restrictions/Additional Instructions: 1. Follow-up with MRI imaging as ordered. 2. Take medications as prescribed. 3. Alcohol cessation. 4. Keep blood pressure log. 5. Follow-up with outpatient provider for further care. 6. Echocardiogram results are pending if any actionable findings are noted you will be contacted. 7. No driving or operating heavy machinery until cleared by primary care provider. Discharge Attestations Time Spent in Discharge Care*: greater than 30 min Quality Metrics Clinical Quality Measures [ No reported AMI, CVA or VTE this stay] Coding Level of Care Code Acute Code for Chg Fwd Diagnoses Alcohol intoxication F10.920 Complication of substance-induced condition: uncomplicated HTN (hypertension) with goal to be determined I10 Brain TIA G45.9 COPD (chronic obstructive pulmonary disease) J44.9 Hypertension I10 Hirsutism L68.0
--- NOTE | 2023-09-07 21:36 | USCV_ITS ---
Ky Ade Age: 58 Gender: F : 1965 Exam Date: 09/07/2023 08:51 Ordering Phys: Nichelle Mari MD Technologist: Exam Location: [facility] [place] Indication: cva BP: 135 / 73 HR: 94 Rhythm: Sinus Technical Quality: , Very technically difficult study MEASUREMENTS (Male / Female) Normal Values 2D ECHO LV Diastolic Diameter PLAX 3.2 cm 4.2 - 5.9 / 3.9 - 5.3 cm IVS Diastolic Thickness 0.9 cm 0.6 - 1.0 / 0.6 - 0.9 cm IVS Systolic Thickness 1.3 cm LVPW Diastolic Thickness 1.3 cm 0.6 - 1.0 / 0.6 - 0.9 cm LVPW Systolic Thickness 1.7 cm LVOT Diameter 2.1 cm LV Ejection Fraction 2D Teich 58.3 % LA Diameter 4.0 cm M-MODE LA Ao Ratio MM 1.2 AV Cusp Separation MM 2.0 cm DOPPLER AV Peak Velocity 106.0 cm/s LVOT Peak Velocity 77.0 cm/s AV Area Cont Eq vti 2.6 cm squared AV Area Cont Eq pk 2.4 cm squared MV Peak Velocity 107.0 cm/s MV Area PHT 5.2 cm squared Mitral E to A Ratio 0.6 TR Peak Velocity 95.0 cm/s TR Peak Gradient 3.6 mmHg TV Peak E Velocity 69.0 cm/s Right Atrial Pressure 3.0 mmHg Pulmonary Artery Systolic Pressu 6.6 mmHg FINDINGS Left Ventricle Technically limited quality echocardiogram. LV systolic function is normal with EF of 55 to 60%. No regional wall motion abnormalities are seen. Right Ventricle Grossly normal Right Atrium Not well visualized Left Atrium Not well visualized Mitral Valve Grossly normal. Mild mitral regurgitation. Aortic Valve Not well visualized Tricuspid Valve Insufficient TR jet to calculate RVSP Pulmonic Valve Not well visualized Pericardium Small sized pericardial effusion. Aorta Normal in size IVC Not well visualized CONCLUSIONS LV systolic function is normal with EF of 55-60% Mild mitral regurgitation Small sized pericardial effusion No comparison studies are available. Kory Corral MD (Electronically Signed) Final Date: 07 Sep 2023 15:04 S
== END 2023-09-07 14:00 | disposition home or self-care (01) ==
LOC: ER 20:28 → MEDSURG 20:37
PROVIDERS: Admitting Provider Internal Medicine; Emergency Provider Emergency Medicine; Visit Provider Internal Medicine
DX: F10.920 Alcohol use, unspecified with intoxication, uncomplicated (principal); Y90.5 Blood alcohol level of 100-119 mg/100 ml; I10 Essential (primary) hypertension; G45.9 Transient cerebral ischemic attack, unspecified; J44.9 Chronic obstructive pulmonary disease, unspecified; L68.0 Hirsutism; Z91.148 Patient's other noncompliance with medication regimen for other reason; Z86.73 Personal history of transient ischemic attack (TIA), and cerebral infarction without residual deficits
CPT/HCPCS: 36415; 36416; 70450; 70496; 70498; 71045; 80053; 80061; 80306; 80307; 81001; 82962; 83036; 83735; 84100; 84145; 84443; 84484; 85025; 85610; 85730; 86140; 93005; 93306; 94664; 96361; 96372; 96374; 96375; 96376; 97161; 97165; 99285; G0378; J0360; J1644; J2060; J3411; J3490; J7030; Q9967

== ENCOUNTER 2023-10-25 19:59 | Inpatient (IN) | payer MEDICAID, SELFPAY ==
[2023-10-25 20:07] VITALS: BP 116/97; PULSE 147; RESP 18; O2SAT 85; BMI 25.0
--- NOTE | 2023-10-25 20:18 | W.ED.GENADLT ---
HPI - General Adult General: Chief complaint: General Medical Stated complaint: HEAT EXPOSURE Time Seen by Provider: 10/25/23 20:08 Source: patient and EMS Mode of arrival: EMS Limitations: no limitations History of Present Illness: 58-year-old female was found down by her trailer today. Patient states she been out in the heat all day long states she had drank a little alcohol. Patient now is awake alert states she feels much better after being out in the heat she does have a history of COPD states she has had a slight cough denies any vomiting or diarrhea Associated symptoms: Reports malaise and syncope; Deny chest pain, dyspnea, headache(s), nausea, rash or vomiting Review of Systems Const: Reports: fatigue and malaise; Denies: fever(s), chills, body aches or change in appetite ENMT: Denies: throat pain or dental pain Card: Reports: syncope; Denies: chest pain Resp: Denies: dyspnea GI: Denies: abdominal pain, nausea, vomiting or diarrhea : Denies: dysuria Musc: Denies: neck pain or back pain Skin/Breast: Denies: rash Neuro: Denies: headache(s) PFS ED PFSH: Medical History Hirsutism Hypertension Alcohol intoxication Brain TIA HTN (hypertension) with goal to be determined COPD (chronic obstructive pulmonary disease) Physical Exam Const: COMMON NORMALS: no acute distress, patient oriented x3 and healthy appearing HENMT: COMMON NORMALS: normocephalic and atraumatic HEAD & SCALP: normocephalic and atraumatic Neck/C-Spine: COMMON NORMALS: full ROM and supple Chest: COMMONS NORMALS: normal inspection of the chest Resp: COMMON NORMALS: No retractions and No use of accessory muscles AUSCULTATION: wheezes Cardio: COMMON NORMALS: regular rhythm and No murmurs present (Cardio) RATE: tachycardic RHYTHM: regular rhythm GI: COMMON NORMALS: Normal to inspection, nondistended, normoactive bowel sounds present, Soft to palpation, non-tender and no masses PALPATION: Yes Soft to palpation Extremity: COMMON NORMALS: normal to inspection and full ROM Neuro: COMMON NORMALS: patient oriented x3, moves all extremities and no focal motor deficits Psych: COMMON NORMALS: mental status grossly normal, Normal thought process present and cooperative THOUGHT PROCESS: Normal thought process present Skin: COMMON NORMALS: no rashes or lesions noted and no wounds GENERAL SKIN EXAM: no rashes or lesions noted Course Vital Signs: Vital signs: Vital Signs Temperature 98.4 F 10/25/23 20:42 Pulse Rate 122 H 10/25/23 21:28 Respiratory Rate 18 10/25/23 20:29 Blood Pressure 120/95 10/25/23 20:39 Pulse Oximetry 95 10/25/23 21:28 Oxygen Delivery Me thod Nasal Cannula 10/25/23 21:28 Oxygen Flow Rate 2 10/25/23 20:29 MDM - General Adult Medical Decision Making Patient presents here with being found down likely from a heat exposure and alcohol intoxication does have an elevated white count is requiring oxygen here and does have a likely pneumonia did start on IV antibiotics patient is feeling improved here we will admit at this time. Medical Records I reviewed the patient's medical records. Lab Data I reviewed the patient's lab results. 10/25/23 20:36 10/25/23 20:36 Radiology Impressions Chest X-Ray 10/25/23 20:49 IMPRESSION: 1. Interval development of ill-defined interstitial and alveolar opacities in the right middle lobe and right lower lobe. Findings are suspicious for pneumonia, including atypical and viral organisms. Recommend followup chest imaging to insure resolution of these findings. 2. Incidental/nonacute findings are listed in the report. Laboratory Results WBC 18.34 10^3/uL (3.29-11.43) H 10/25/23 20:36 RBC 5.96 10^6/uL (3.85-5.65) H 10/25/23 20:36 Hgb 16.90 g/dL (11.27-16.99) 10/25/23 20:36 Hct 53.0 % (36-47) H 10/25/23 20:36 MCV 88.9 fl (85-98) 10/25/23 20:36 MCH 28.4 pg (27-33) 10/25/23 20:36 MCHC 31.9 g/dL (30-55) 10/25/23 20:36 RDW 14.0 % (12.1-15.1) 10/25/23 20:36 Plt Count 679 10^3/cmm (157-399) H 10/25/23 20:36 MPV 9.6 fL (7.4-10.4) 10/25/23 20:36 Neut % (Auto) 85.0 % 10/25/23 20:36 Lymph % (Auto) 4.6 % 10/25/23 20:36 [place] % (Auto) 9.5 % 10/25/23 20:36 Eos % (Auto) 0.2 % 10/25/23 20:36 Baso % (Auto) 0.3 % 10/25/23 20:36 Neut # (Auto) 15.59 10^3/uL (1.8-7.7) H 10/25/23 20:36 Lymph # (Auto) 0.8 10^3/uL (0.8-4.8) 10/25/23 20:36 [place] # (Auto) 1.8 10^3/uL (0.2-0.9) H 10/25/23 20:36 Eos # (Auto) 0.0 10^3/uL (0.0-0.8) 10/25/23 20:36 Baso # (Auto) 0.1 10^3/uL (0.0-0.1) 10/25/23 20:36 Nucleated RBC % (auto) 0 % 10/25/23 20:36 Nucleated RBCs # 0.0 /100WBC 10/25/23 20:36 Specimen Type Arterial 10/25/23 20:48 Sample Site Radial, right 10/25/23 20:48 ABG pH 7.42 (7.35-7.45) 10/25/23 20:48 ABG pCO2 32.7 mmHg (35-45) L 10/25/23 20:48 ABG pO2 81.2 mmHg (80.0-100.0) 10/25/23 20:48 ABG HCO3 21.2 mmol/L (22-26) L 10/25/23 20:48 ABG Base Excess -2.3 mmol/L (-2.0-2.0) L 10/25/23 20:48 Rito Test Pos 10/25/23 20:48 Hematocrit 51.7 % (37-47) H 10/25/23 20:48 O2 Delivery Device Nc 10/25/23 20:48 O2 Liters/Min 2.0 % 10/25/23 20:48 Social Media Content Specialist ID Cl 10/25/23 20:48 Sodium 143 mmol/L (136-145) 10/25/23 20:36 Potassium 3.1 mmol/L (3.5-5.1) L 10/25/23 20:36 Chloride 105 mmol/L (98-107) 10/25/23 20:36 Carbon Dioxide 20 mmol/L (22-29) L 10/25/23 20:36 Anion Gap 21.1 (5-19) H 10/25/23 20:36 BUN 9 mg/dL (6-20) 10/25/23 20:36 Creatinine 0.9 mg/dL (0.5-0.9) 10/25/23 20:36 GFR Calculation 64.8 mL/min (90-130) L 10/25/23 20:36 Glucose 136 mg/dL (65-115) H 10/25/23 20:36 Calculated Osmolality 297 mOsm/kg (285-295) H 10/25/23 20:36 Calcium 8.9 mg/dL (8.5-10.5) 10/25/23 20:36 Magnesium 2.0 mg/dL (1.7-2.3) 10/25/23 20:36 Total Bilirubin 0.5 mg/dL (0.15-1.2) 10/25/23 20:36 AST 21 U/L (0-32) 10/25/23 20:36 ALT 23 U/L (0-33) 10/25/23 20:36 Alkaline Phosphatase 158 U/L (35-105) H 10/25/23 20:36 Creatine Kinase 277 U/L (26-192) H 10/25/23 20:36 Total Protein 8.0 g/dL (6.6-8.7) 10/25/23 20:36 Albumin 4.0 g/dL (3.5-5.2) 10/25/23 20:36 Globulin 4.0 g/dL (1.3-4.6) 10/25/23 20:36 Ethyl Alcohol 207 mg/dL (0-10) H 10/25/23 20:36 All radiology interpretation(s) finalized by discharge Discharge Plan Discharge Patient Disposition: Admitted As Inpatient Clinical Impression: Pneumonia, Acute respiratory failure with hypoxia, Alcohol intoxication, Heat exposure Condition: Stable Coding Level of Care Code ED 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
[2023-10-25] MEDS: ipratropium-albuterol 3 mL Neb INHALATION (20:28)
[2023-10-25 20:29] VITALS: PULSE 130; RESP 18; O2SAT 96
[2023-10-25 20:39] VITALS: BP 120/95; PULSE 133; O2SAT 93
[2023-10-25 20:42] VITALS: TEMP 36.9
[2023-10-25] MEDS: sodium chloride 0.9% 1,000 ML 999 ML IV (20:43)
[2023-10-25 20:45] LABS: Basophils # 0.1 10^3/uL (0.0-0.1); Basophils % 0.3 %; Eosinophils % 0.2 %; Lymphocytes # 0.8 10^3/uL (0.8-4.8); Lymphocytes % 4.6 %; Mean Corpuscular HGB Conc 31.9 g/dL (30-55); Mean Corpuscular Hemoglobin 28.4 pg (27-33); Mean Corpuscular Volume 88.9 fl (85-98); Mean Platelet Volume 9.6 fL (7.4-10.4); Monocytes # 1.8 10^3/uL (0.2-0.9); Monocytes % 9.5 %; Neutrophils # 15.59 10^3/uL (1.8-7.7); Nucleated Red Blood Cells % 0 %; Platelet Count 679 10^3/cmm (157-399); Red Blood Count 5.96 10^6/uL (3.85-5.65); White Blood Count 18.34 10^3/uL (3.29-11.43)
--- NOTE | 2023-10-25 20:49 | XRR_ITS ---
PROCEDURE INFORMATION: Exam: XR Chest Exam date and time: 10/25/2023 8:53 PM Age: 58 years old Clinical indication: Shortness of breath; Patient HX: SOB TECHNIQUE: Imaging protocol: Radiologic exam of the chest. Views: 1 view. COMPARISON: CR XR chest 1V portable [id number] 09/06/2023 6:28 PM FINDINGS: Lungs: Interval development of ill-defined interstitial and alveolar opacities in the right middle lobe and right lower lobe. Findings are suspicious for pneumonia, including atypical and viral organisms. Stable mild hyperinflation of the lungs. Pleural spaces: No pleural effusion. No pneumothorax. Heart/Mediastinum: The cardiac silhouette and mediastinal contours are unremarkable. Bones/joints: Unremarkable for age. XR/XR chest 1V portable [id number] IMPRESSION: 1. Interval development of ill-defined interstitial and alveolar opacities in the right middle lobe and right lower lobe. Findings are suspicious for pneumonia, including atypical and viral organisms. Recommend followup chest imaging to insure resolution of these findings. 2. Incidental/nonacute findings are listed in the report.
[2023-10-25 20:57] LABS: ABG PCO2 32.7 mmHg (35-45); ABG PH Result 7.42 (7.35-7.45); Arterial Blood Gas Hematocrit 51.7 % (37-47); Base Excess ABG -2.3 mmol/L (-2.0-2.0); Blood Gas Allen Test Pos; Blood Gas Operator Identificat CL; Blood Gas Sample Site Radial, right; Blood Gas Sample Type Arterial; HCO3 ABG 21.2 mmol/L (22-26); Oxygen Device NC; PO2 ABG 81.2 mmHg (80.0-100.0)
[2023-10-25 21:02] LABS: Alanine Aminotransferase 23 U/L (0-33); Alcohol Level 207 mg/dL (0-10); Alkaline Phosphatase 158 U/L (35-105); Anion Gap 21.1 (5-19); Aspartate Amino Transferase 21 U/L (0-32); Blood Urea Nitrogen 9 mg/dL (6-20); Calcium 8.9 mg/dL (8.5-10.5); Carbon Dioxide 20 mmol/L (22-29); Chloride 105 mmol/L (98-107); Creatine Phosphokinase 277 U/L (26-192); Creatinine Clr Calc Pharmacy 59.9749; Glomerular Filtration Rate 64.8 mL/min (90-130); Glucose 136 mg/dL (65-115); Osmolality Calculated 297 mOsm/kg (285-295); Potassium 3.1 mmol/L (3.5-5.1); Sodium 143 mmol/L (136-145); Total Bilirubin 0.5 mg/dL (0.15-1.2)
[2023-10-25 21:28] VITALS: PULSE 122; O2SAT 95
--- NOTE | 2023-10-25 22:04 | PC.NURSE ---
called med surg to give report, nurse to call back.
--- NOTE | 2023-10-25 22:06 | P.HP_ITS ---
Providers/Chief Complaint 2 Admitting Physician: Cecilia Moran MD Chief Complaint: HEAT EXPOSURE History of Present Illness Ade Mcpherson is a 58 year old female with history of alcoholism, presented with generalized weakness and fatigue. Patient is stating that today she was extremely weak and lethargic she fell in her trailer and could not get up neighbors called 9 11. Patient is stating that she admits that she is alcoholic she did not tell me the exact quantity. She is smoking 2 packs/day as well. Stating that she is not living with her friends anymore she has her own trailer but there is no air conditioning. Patient is stating that she is not experiencing any chest pain abdominal pain, nausea or vomiting. In the ER patient was diagnosed with pneumonia and heat exhaustion. She is tachycardic looks dehydrated. Review of Systems 2 Const: Reports: chills and change in weight Eyes: Denies: change in vision ENMT: Denies: throat pain Card: Denies: chest pain Resp: Reports: dyspnea GI: Denies: abdominal pain : Denies: flank pain Musc: Denies: neck pain Medications/Allergies Home Medications Medication Instructions Recorded Confirmed Last Taken Type amlodipine 5 mg tablet (Norvasc) 5 mg PO BID #60 tabs 09/07/23 Unknown Rx atorvastatin 40 mg tablet 80 mg (2 x 40 mg) PO BEDTIME #30 09/07/23 Unknown Rx tabs clopidogrel 75 mg tablet 75 mg PO DAILY #21 tabs 09/07/23 Unknown Rx folic acid 1 mg tablet 1 mg PO DAILY #30 tabs 09/07/23 Unknown Rx multivitamin with folic acid 400 1 tab PO DAILY #30 tabs 09/07/23 Unknown Rx mcg tablet (Thera) thiamine mononitrate (vit B1) 100 100 mg PO DAILY #30 tabs 09/07/23 Unknown Rx mg tablet (Vitamin B-1 (mononitrate)) Allergies Allergy/AdvReac Type Severity Reaction Status Date / Time No Known Allergies Allergy Verified 10/25/23 20:12 PFSH Acute 2 PFSH: Medical History Hirsutism Hypertension Alcohol intoxication Brain TIA HTN (hypertension) with goal to be determined COPD (chronic obstructive pulmonary disease) Vitals/I&O/Wt Last Vital Signs Temp 98.4 F 10/25/23 20:42 Pulse 122 H 10/25/23 21:28 Resp 18 10/25/23 20:29 BP 120/95 10/25/23 20:39 Pulse Ox 95 10/25/23 21:28 O2 Del Method Nasal Cannula 10/25/23 21:28 O2 Flow Rate 2 10/25/23 20:29 Weight last 48 hrs Weight 54.431 kg Physical Exam 2 Narrative: Patient is dehydrated Hirsutism GCS 15 Awake and alert Tachycardia Hypertensive Awake and alert Nonfocal neuroexam Able to answer all the questions Lower extremity no edema S1, S2 is tachycardic Data 10/25/23 20:36 10/25/23 20:36 A&P Assessment and plan (1) Alcohol intoxication: (2) Heat exposure: (3) Pneumonia: (4) Acute respiratory failure with hypoxia: Plan Acute hypoxia related to pneumonia Patient does not use oxygen at home Drinks alcohol, smokes on daily basis Start CIWA protocol Start doxycycline and ceftriaxone Tachycardia, check drug screen, I will add metoprolol for autonomic dysfunction, add CIWA protocol Continue IV fluids overnight Heat exhaustion, continue IV fluids Check CPK Check drug screen DVT prophylaxis: Lovenox Cardiac diet Check magnesium and phosphorus level Attestations 2 Medical Necessity Statement*: Anticipating discharge within 48 hours Diagnoses Alcohol intoxication F10.929 Heat exposure T67.9XXA Pneumonia J18.9 Acute respiratory failure with hypoxia J96.01
--- NOTE | 2023-10-25 22:10 | PC.NURSE ---
blood culture drawn at this time
[2023-10-25 22:30] VITALS: BP 115/96; PULSE 122; O2SAT 94
--- NOTE | 2023-10-25 23:14 | PC.NURSE ---
report called to ortega at [phone]
--- NOTE | 2023-10-25 23:24 | PC.NURSE ---
Unable to place SCDs on patient, as there is no SCD tubing available at this time.
[2023-10-26] VITALS (15 sets, daily range): BP systolic 126–188; BP diastolic 84–109; PULSE 91–130; RESP 17–20; TEMP 36.3–37.1; O2SAT 92–95
[2023-10-26 00:03] LABS: Thyroid Stimulating Hormone 0.35 uIU/mL (0.27-4.20)
[2023-10-26] MEDS: piperacillin-tazobactam 3.375 GM in sodium chloride 0.9% (plus) 50 ML IV ×3 (00:17→20:47)
[2023-10-26] MEDS: sodium chloride 0.9% 1,000 ML 75 ML IV (00:17)
[2023-10-26] MEDS: enoxaparin 40 mg/0.4 mL Syringe SUBCUT (00:17)
[2023-10-26] MEDS: vancomycin 1,000 MG in sodium chloride 0.9% 250 ML 250 MG IV (00:18)
--- NOTE | 2023-10-26 00:31 | PC.NURSE ---
When going through home medication list, patient states she does not take any of those medications anymore. When asking patient if she takes any medications, she says yes, but cannot tell me the names of any of them. Unable to verify home medications at this time.
[2023-10-26] MEDS: ipratropium-albuterol 3 mL Neb INHALATION ×3 (03:15→13:32)
--- NOTE | 2023-10-26 05:08 | PC.NURSE ---
Patient's oxygen saturation 93 percent on one liter while lying in bed. Upon ambulating to the bathroom, it drops to the 80s. It quickly comes back up after patient goes back to bed. Patient also becomes short of breath with ambulating. Patient states my breathing has been like this for a while now, stating that she has been having shortness of breath with ambulation at home for a while.
--- NOTE | 2023-10-26 05:15 | PC.NURSE ---
Dr. Mari notified of the following: 's note says Tachycardia, I will add metoprolol for autonomic dysfunction. The first dose of Metoprolol isn't ordered until 9 am. Her heart rate is currently 127. Dr. Mari ordered to give 9 am dose of Metoprolol now.
[2023-10-26 05:37] LABS: Amphetamines Screen Urine Negative (Negative); Barbiturates Screen Urine Negative (Negative); Benzodiazepines Screen Urine Negative (Negative); Cocaine Screen Urine Negative (Negative); Opiate Screen Urine Negative (Negative); PCP Screen Urine Negative (Negative); THC Screen Urine Positive (Negative)
[2023-10-26] MEDS: metoprolol tartrate 25 mg Tablet PO ×2 (05:44→20:46)
--- NOTE | 2023-10-26 06:06 | ECG_ITS ---
[facility] Test Date: 2023-10-26 Pat Name: Ade Mcpherson Department: Room: 256 Gender: Female Skein Dyer: : 1965 Requested By: Nichelle Mari Order Number: [id number] Lucy MD: Kory Corral M.D. Measurements Intervals [place] Rate: 115 P: 74 NC: 133 QRS: 76 QRSD: 82 T: 77 QT: 316 QTc: 439 Interpretive Statements SINUS TACHYCARDIA Compared to ECG 09/07/2023 01:28:53 ST (T wave) deviation no longer present Electronically Signed On 10-26-2023 9:44:51 CDT by Kory Corral M.D. [email or web address][id number]
--- NOTE | 2023-10-26 06:13 | PC.NURSE ---
At 05:58, patient had short run of what appeared to be SVT on telemetry. Patient had nausea with it. Patient's heart rate is now sinus tachycardia at a rate of 106. Blood pressure 177/84. Dr. Mari notified and image of tachycardia run sent to her via voalte. EKG ordered and taken.
[2023-10-26] MEDS: cefTRIAXone 1,000 MG in sodium chloride 0.9% (plus) 50 ML 100 MG IV (08:36)
[2023-10-26] MEDS: thiamine 100 mg Tablet PO (08:36)
[2023-10-26] MEDS: folic acid 1 mg Tablet PO (08:36)
[2023-10-26] MEDS: clopidogrel 75 mg Tablet PO (08:36)
[2023-10-26] MEDS: multivitamin therapeutic Tablet 1 TAB PO (08:36)
[2023-10-26] MEDS: doxycycline 100 mg Tablet PO ×2 (08:36→17:56)
[2023-10-26] MEDS: amlodipine 5 mg Tablet PO ×2 (08:36→17:56)
--- NOTE | 2023-10-26 08:36 | CTR_ITS ---
PROCEDURE INFORMATION: Exam: CTA Chest With Contrast Exam date and time: 10/26/2023 3:11 PM Age: 58 years old Clinical indication: Dyspnea; Additional info: Elevated dimer, dypsnea, hypoxia TECHNIQUE: Imaging protocol: Computed tomographic angiography of the chest with contrast. Exam focused on the arteries. 3D rendering (Not supervised by radiologist): MIP and/or 3D reconstructed images were created by the technologist. Radiation optimization: All CT scans at this facility use at least one of these dose optimization techniques: automated exposure control; mA and/or kV adjustment per patient size (includes targeted exams where dose is matched to clinical indication); or iterative reconstruction. Contrast material: OMNI 350; Contrast volume: 61 ml; Contrast route: INTRAVENOUS (IV); COMPARISON: CR (CHEST, ) 10/25/2023 8:53 PM RADIATION DOSE METRICS: Total DLP (mGy-cm): 262.86 FINDINGS: Pulmonary arteries: No pulmonary embolism evident. Aorta: No evidence of thoracic aortic aneurysm. Thyroid: No significant thyroid pathology. Lungs: Severe pulmonary emphysema. Spiculated mass in the posterolateral aspect of the right upper lobe measuring 3 cm on series 4, image 46. Adjacent spiculations extend to the pleural surface which is mildly tethered. No chest wall invasion evident. There is a airspace disease present in the lower portion of the right middle lobe. There is a extensive peribronchovascular soft tissue thickening of the right hilum. There is a extension of bronchial wall thickening into the right middle lobe and lower lobe. There is also diffuse interstitial reticulation in these lobes. 4 mm left upper lobe nodule on series 4, image 33. 5 mm left lower lobe nodule series 6, image 325. Few other scattered. nodules are also noted (example 4 mm left upper lobe series 6, image 300, perifissural right mid lung zone 6 mm series 6, image 265, etc.).No pleural effusion. Pleural spaces: See Lungs finding. Heart: Moderate pericardial effusion. Lymph nodes: No discrete oh enlargement is seen in the left hilum. Borderline sized lymph nodes are present in the AP window region. Borderline anterior mediastinal lymph nodes are also present. No axillary lymphadenopathy. Diaphragm: Small hiatal hernia. Liver: Hepatic steatosis. Adrenal glands: Lobulated multinodular left adrenal enlargement with the largest nodule measuring up to 4.3 cm in greatest dimension. Diffuse right adrenal thickening is also present. Bones/joints: Mild degenerative changes present in the shoulders and spine. No skeletal metastasis evident. Soft tissues: See Lungs finding. Other findings: Evaluation limited by respiratory degradation. CT/CT angio chest PE protcl [id number] IMPRESSION: 1. No evidence of pulmonary embolism. 2. 3 cm right upper lobe mass with spiculated margination suspicious for primary neoplasm although atypical benign pathology cannot be excluded. Extensive right hilar peribronchovascular soft tissue thickening which extends into the right lower and middle lobes which also demonstrate extensive reticulation. Differential diagnosis includes inflammatory/infectious change as well as metastatic spread with lymphangitic extension of tumor. Mild right middle lobe consolidation. Borderline mediastinal lymphadenopathy. 3. Left adrenal masses measuring up to 0.3 cm suspicious for metastatic disease although benign pathology cannot be excluded and dedicated adrenal CT or MRI could be performed for more detailed assessment. 4. Severe pulmonary emphysema. Moderate pericardial effusion. COMMENTS: Consistent with the [place] [employer]'s Incidental Findings Committee white paper (J Am Lydia Radiol 2017): Any incidental adrenal lesion less than 1 cm is likely benign. No follow-up imaging is recommended for these lesions per consensus recommendations based on imaging criteria. Further lab evaluation could be pursued if warranted based on clinical findings.
--- NOTE | 2023-10-26 09:28 | P.PN_ITS ---
Subjective 2 Subjective: History and physical reviewed. Patient reports coughing. She denies any chest pain. Does not remember when she last had alcohol. Thinks she usually does not withdrawal. Denies any leg pain. Reports she is nauseous but no abdominal pain and no vomiting. Medications: Reviewed: Yes Vitals/I&O/Wt Last Vital Signs Temp 98.0 F 10/26/23 08:00 Pulse 100 10/26/23 08:02 Resp 18 10/26/23 08:02 BP 185/88 10/26/23 08:00 Pulse Ox 95 10/26/23 08:02 O2 Del Method Nasal Cannula 10/26/23 08:02 O2 Flow Rate 1 10/26/23 08:02 10/25/23 10/26/23 10/26/23 22:59 06:59 14:59 Intake Total 540 / 540 Output Total 200 / 200 Balance 340 / 340 Weight last 48 hrs Weight 50.485 kg Weight 50.485 kg Weight 54.431 kg Physical Exam 2 Narrative: General exam is white female, no distress Neck is supple no lymphadenopathy thyromegaly Cardiovascular regular rate and rhythm without murmur Lungs coarse with occasional wheezing bilaterally expiratory Abdomen is soft nontender with positive bowel sounds Extremities no sinus clubbing edema, cap refill brisk Data 10/25/23 20:36 10/25/23 20:36 Micro: Microbiology 10/25/23 22:39 Blood Culture - Preliminary Blood SPECIMEN COLLECTED 10/25/23 22:09 Blood Culture - Preliminary Blood SPECIMEN COLLECTED A&P Assessment and plan (1) Pneumonia: Patient with right-sided pneumonia Placed on doxycycline and ceftriaxone Change ceftriaxone to Zosyn secondary to patient's nausea and alcoholism that this could represent aspiration Sputum culture, MRSA PCR, respiratory panel (2) Hypoxia: See above Continue oxygen. She is currently requiring 1 to 2 L. Wean as tolerated. (3) D-dimer, elevated: Dimer is markedly elevated Check CTA chest. This will clearly delineate whether pulmonary embolism is present in the extensive pneumonia (4) Alcoholism: [facility] protocol is appropriate Monitor for withdrawal Hydration Alcohol level elevated on admission CK slightly elevated, no need to recheck (5) Hypokalemia: Supplement potassium Check potassium and magnesium level tomorrow (6) Nausea: Patient nauseated Zofran as needed for nausea Protonix IV Check lipase on blood in lab (7) COPD (chronic obstructive pulmonary disease): Budesonide twice daily DuoNeb as needed Encouraged to stop smoking (8) HTN (hypertension) with goal to be determined: Blood pressure elevated Metoprolol has been initiated Adjust as needed while in hospital Plan Tobacco dependency. Encouraged abstinence Full code Lovenox for DVT prophylaxis Discharge planning will need to see as living environment is poor, with no air conditioning and social needs. Attestations 2 Medical Necessity Statement*: Needs continued hospitalization for IV antibiotics related to pneumonia with hypoxia Diagnoses Pneumonia J18.9 Hypoxia R09.02 D-dimer, elevated R79.89 Alcoholism F10.20 Hypokalemia E87.6 Nausea R11.0 COPD (chronic obstructive pulmonary disease) J44.9 HTN (hypertension) with goal to be determined I10 Time Spent (min) 37
--- NOTE | 2023-10-26 10:15 | PC.PHAR ---
PT STATES DOES NOT REMEMBER WHAT SHE TAKES OR LAST TIME TAKEN. STATED USES [facility]. FOUND MEDICATIONS AT [facility]-VERIFIED MEDICATIONS, DOSAGE, AND LAST FILL DATES.
[2023-10-26] MEDS: losartan 50 mg Tablet PO (11:14)
[2023-10-26] MEDS: potassium chloride ER 20 mEq Tablet 40 MEQ PO (11:14)
[2023-10-26] MEDS: pantoprazole 40 mg SDV IVP ×2 (11:15→20:46)
[2023-10-26] MEDS: nicotine 21 mg Patch 1 PATCH TRANSDERMA (11:16)
[2023-10-26 11:27] LABS: Basophils # 0.1 10^3/uL (0.0-0.1); Basophils % 0.3 %; Eosinophils % 0.2 %; Hematocrit 49.3 % (36-47); Lymphocytes # 0.9 10^3/uL (0.8-4.8); Mean Corpuscular HGB Conc 32.5 g/dL (30-55); Mean Corpuscular Hemoglobin 28.3 pg (27-33); Mean Corpuscular Volume 87.1 fl (85-98); Mean Platelet Volume 9.5 fL (7.4-10.4); Monocytes # 1.2 10^3/uL (0.2-0.9); Monocytes % 7.6 %; Neutrophils # 13.23 10^3/uL (1.8-7.7); Neutrophils % 85.5 %; Nucleated Red Blood Cells % 0 %; Platelet Count 632 10^3/cmm (157-399); Red Blood Count 5.66 10^6/uL (3.85-5.65); Red Cell Distribution Width 13.8 % (12.1-15.1); White Blood Count 15.47 10^3/uL (3.29-11.43)
[2023-10-26] MEDS: pneumococcal (23 valent) SDV 0.5 mL IM (11:30)
[2023-10-26 11:48] LABS: Magnesium 1.7 mg/dL (1.7-2.3)
[2023-10-26 11:49] LABS: Lipase 12 U/L (13-60)
[2023-10-26] MEDS: iohexol 350 mg/mL 500 mL Btl (per mL) IV (15:17)
[2023-10-26 16:46] LABS: Adenovirus Not Detected (NOT DETECT); Chlamydia Pneumoniae Not Detected (NOT DETECT); Coronavirus 229E,HKU1,NL63,OC4 Not Detected (NOT DETECT); Human Metapneumovirus Not Detected (NOT DETECT); Human Rhinovirus/Enterovirus Not Detected (NOT DETECT); Influenza A Not Detected (NOT DETECT); Influenza A H1 Not Detected (NOT DETECT); Influenza A H1-2009 Not Detected (NOT DETECT); Influenza A H3 Not Detected (NOT DETECT); Influenza B Not Detected (NOT DETECT); Mycoplasma Pneumoniae Not Detected (NOT DETECT); Parainfluenza Virus Type 1 Not Detected (NOT DETECT); Parainfluenza Virus Type 2 Not Detected (NOT DETECT); Parainfluenza Virus Type 3 Not Detected (NOT DETECT); Parainfluenza Virus Type 4 Not Detected (NOT DETECT); Respiratory Syncytial Virus A Not Detected (NOT DETECT); Respiratory Syncytial Virus B Not Detected (NOT DETECT); SARS-COV-2 Not Detected (NOT DETECT)
[2023-10-26] MEDS: sodium chloride 0.9% 1,000 ML 50 ML IV (17:56)
[2023-10-26] MEDS: trazodone 100 mg Tablet PO (20:46)
[2023-10-26] MEDS: atorvastatin 40 mg Tablet PO (20:46)
[2023-10-26] MEDS: budesonide 0.5 mg/2 mL Neb INHALATION (21:35)
[2023-10-27] VITALS (13 sets, daily range): BP systolic 94–119; BP diastolic 57–86; PULSE 97–118; RESP 16–18; TEMP 36.7–37.1; O2SAT 90–95
[2023-10-27 02:20] LABS: Bacillus cereus group Not Detected (NOT DETECT); Bacillus subtillis group Not Detected (NOT DETECT); Corynebacterium Not Detected (NOT DETECT); Cutibacterium acnes (P.acnes) Not Detected (NOT DETECT); Enterococcus Not Detected (NOT DETECT); Enterococcus faecalis Not Detected (NOT DETECT); Enterococcus faecium Not Detected (NOT DETECT); Lactobacillus species Not Detected (NOT DETECT); Listeria Not Detected (NOT DETECT); Listeria monocytogenes Not Detected (NOT DETECT); Micrococcus Not Detected (NOT DETECT); Pan Candida Not Detected (NOT DETECT); Pan Gram-Negative Not Detected (NOT DETECT); Staphylococcus epidermidis Not Detected (NOT DETECT); Staphylococcus lugdunensis Not Detected (NOT DETECT); Staphylococcus species Detected (NOT DETECT); Streptococcus agalactiae Not Detected (NOT DETECT); Streptococcus anginosus group Not Detected (NOT DETECT); Streptococcus pneumoniae Not Detected (NOT DETECT); Streptococcus pyogenes Not Detected (NOT DETECT); Streptococcus species Not Detected (NOT DETECT); mecA Not Detected (NOT DETECT); mecC Not Detected (NOT DETECT)
[2023-10-27] MEDS: piperacillin-tazobactam 3.375 GM in sodium chloride 0.9% (plus) 50 ML IV ×3 (03:57→18:04)
[2023-10-27 07:12] LABS: Alanine Aminotransferase 14 U/L (0-33); Albumin Level 3.2 g/dL (3.5-5.2); Alkaline Phosphatase 144 U/L (35-105); Anion Gap 22.2 (5-19); Aspartate Amino Transferase 18 U/L (0-32); Blood Urea Nitrogen 6 mg/dL (6-20); Calcium 8.2 mg/dL (8.5-10.5); Carbon Dioxide 17 mmol/L (22-29); Chloride 104 mmol/L (98-107); Creatinine Clr Calc Pharmacy 83.2157; Globulin 3.2 g/dL (1.3-4.6); Glomerular Filtration Rate 103.4 mL/min (90-130); Glucose 93 mg/dL (65-115); Osmolality Calculated 287 mOsm/kg (285-295); Potassium 3.2 mmol/L (3.5-5.1); Sodium 140 mmol/L (136-145); Total Protein 6.4 g/dL (6.6-8.7)
[2023-10-27] MEDS: budesonide 0.5 mg/2 mL Neb INHALATION ×2 (08:07→20:21)
--- NOTE | 2023-10-27 08:07 | CT_ITS ---
WS: [id number] CT HEAD TECHNIQUE: Noncontrast CT of the head obtained from the skullbase to the vertex. CLINICAL INFORMATION: nausea, lung mass COMPARISON: CT 09/06/2023 DLP: 1040.[address] scans at [facility] use at least one of these dose optimization techniques: automated e xposure control; mA and/or kV adjustment per patient size (includes targeted exams where dose is matc hed to clinical indication); or iterative reconstruction. FINDINGS: No evidence of intracranial hemorrhage or mass effect. Ventricular system and basal cisterns are jorgensen nt. No extra-axial fluid collections. No evidence of mass or mass effect. Low-attenuation change in the LEFT FOOD SANITARIAN territory compatible with late subacute or early chronic infarct. This is presumably rel ated to previously described LEFT vertebral artery occlusion from 09/06/2023 . Paranasal sinuses and mastoid air cells are well aerated. .Normal visualized soft tissues. Vascular c alcification. CT/CT head wo con* [id number] IMPRESSION: 1. No evidence of intracranial hemorrhage or mass effect. 2. 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 Otherwise no acute intracranial findings.
[2023-10-27] MEDS: nicotine 21 mg Patch 1 PATCH TRANSDERMA (08:13)
[2023-10-27] MEDS: clopidogrel 75 mg Tablet PO (08:14)
[2023-10-27] MEDS: losartan 50 mg Tablet PO (08:15)
[2023-10-27] MEDS: thiamine 100 mg Tablet PO (08:15)
[2023-10-27] MEDS: folic acid 1 mg Tablet PO (08:15)
[2023-10-27] MEDS: amlodipine 5 mg Tablet PO ×2 (08:16→18:04)
[2023-10-27] MEDS: metoprolol tartrate 25 mg Tablet PO ×2 (08:16→20:40)
[2023-10-27] MEDS: multivitamin therapeutic Tablet 1 TAB PO (08:16)
[2023-10-27] MEDS: pantoprazole 40 mg SDV IVP ×2 (08:17→22:54)
[2023-10-27] MEDS: potassium chloride ER 20 mEq Tablet 40 MEQ PO (08:17)
[2023-10-27] MEDS: ondansetron 2 mg/ML SDV 2 mL 4 MG IVP (08:18)
[2023-10-27] MEDS: sodium chloride 0.9% 1,000 ML 50 ML IV (08:18)
[2023-10-27 08:39] LABS: Magnesium 1.7 mg/dL (1.7-2.3)
--- NOTE | 2023-10-27 09:10 | PC.CHAP ---
Pastoral Care Encounter/Spiritual Assessment Type of Contact [] Declined bolter helper visit [] Patient/Family/Request visit [] Outpatient visit [] Follow-up visit [] Physician referral [] Code/Alert [X] Routine visit [] Staff referral [] Actively dying [] Patient sleeping [] Family support [] [] Out of room [] Palliative care [] [] Receiving care in room [] Pre-surgical visit [] Trauma [] Long length of stay [] ICU visit [] Other: Relational/Emotional Strength [X] Patient feels connected with others/family/visitors/staff [] Distress [] Loneliness/isolation [] Abandonment Spirituality of Patient [X] Person of Karissa [] Attends Denominational of their Karissa [X] Believes in Prayer [] Reads Bible or Congregation materials [] There are Spiritual issues to be addressed Ob/Gyn Physician Interventions [X] Prayer [X] Active listening [] Non-anxious presence [X] Spiritual/emotional support [] Crisis/trauma care [] Spiritual counseling [] Bereavement support [] Provided bereavement packet [] Provided Bible/devotional materials [] Provided toy/stuffed animal, coloring book to patient or family member [] Provided Communion [] Anointing/Anthon [] Salvation [X] Completed spiritual assessment [] Other: Impact on Illness or Injury [] Angry [] Fearful [] Anxious [] Often cries [] Exhaustion [] Unable to work [] Unable to attend yazidism [] Unable to walk/stand [] Unable to read [] Unable to drive [] Unable to eat/drink [] Unable to sleep [] Unable to be with family [] Patient intubated [] Other: Summary Time spent with patient 5 MIN
--- NOTE | 2023-10-27 09:38 | P.PN_ITS ---
Subjective 2 Subjective: Patient reports she feels pretty nauseous this morning. No headache or abdominal pain. Still short of breath. I discussed with her in detail the concern of a right lung mass on CT scan. We discussed the possibility of biopsy by radiology, and also referral to pulmonary. Ultimately biopsy may be done outpatient. Medications: Reviewed: Yes Vitals/I&O/Wt Last Vital Signs Temp 98.1 F 10/27/23 07:29 Pulse 116 H 10/27/23 08:13 Resp 18 10/27/23 08:08 BP 115/77 10/27/23 08:15 Pulse Ox 93 10/27/23 08:13 O2 Del Method Nasal Cannula 10/27/23 08:08 O2 Flow Rate 1.5 10/27/23 08:08 10/26/23 10/27/23 10/27/23 22:59 06:59 14:59 Intake Total 890 / 2420 530 / 2950 718.333 / 718.333 Balance 890 / 2420 530 / 2950 718.333 / 718.333 Weight last 48 hrs Weight 50.349 kg Weight 50.485 kg Weight 50.485 kg Weight 54.431 kg Physical Exam 2 Narrative: General exam is white female, complaining of nausea Neck is supple no lymphadenopathy thyromegaly Cardiovascular regular rate and rhythm without murmur Lungs coarse with occasional wheezing bilaterally expiratory Abdomen is soft nontender with positive bowel sounds Extremities no sinus clubbing edema, cap refill brisk Data 10/26/23 11:15 10/27/23 06:17 Micro: Microbiology 10/25/23 22:09 Blood Culture - Preliminary Blood Staphylococcus sp coag neg 10/25/23 22:39 Blood Culture - Preliminary Blood NEGATIVE TO DATE A&P Assessment and plan (1) Pneumonia: Patient with right-sided pneumonia Placed on doxycycline and ceftriaxone initially Changed to vancomycin and Zosyn. 04/16 blood culture positive with gram-positive cocci. Repeat cultures pending. Vancomycin was added when this was known Await sputum culture, MRSA PCR. Respiratory panel was negative (2) Hypoxia: See above Continue oxygen. She is currently requiring 1 to 2 L. Wean as tolerated. (3) D-dimer, elevated: Dimer is markedly elevated CTA of chest did not demonstrate any pulmonary embolism. Pneumonia, right lung mass was noted. Also concern of adrenal enlargement. Discussed with patient. Severe emphysema also noted. Moderate pericardial effusion. (4) Alcoholism: CIWA protocol is appropriate Monitor for withdrawal Continue hydration Alcohol level elevated on admission CK slightly elevated, no need to recheck (5) Hypokalemia: Supplement potassium again today Check potassium and magnesium level tomorrow (6) Nausea: Patient nauseated Zofran as needed for nausea Continue Protonix IV Lipase normal. Bilirubin slightly high. Recheck tomorrow. Rest of LFTs are normal. Obtain CT of head. Concerned with nausea, presence of lung mass, prior history of vertebral occlusion. (7) COPD (chronic obstructive pulmonary disease): Budesonide twice daily DuoNeb as needed Encouraged to stop smoking (8) HTN (hypertension) with goal to be determined: Blood pressure elevated Metoprolol has been initiated Blood pressure improved Plan Tobacco dependency. Encouraged abstinence History of vertebral occlusion. Currently on statin and Plavix Full code Lovenox for DVT prophylaxis Discharge planning will need to see as living environment is poor, with no air conditioning and social needs. Attestations 2 Medical Necessity Statement*: Needs continued hospitalization for IV antibiotics secondary to pneumonia with hypoxia, new diagnosis of lung mass Diagnoses Pneumonia J18.9 Hypoxia R09.02 D-dimer, elevated R79.89 Alcoholism F10.20 Hypokalemia E87.6 Nausea R11.0 COPD (chronic obstructive pulmonary disease) J44.9 HTN (hypertension) with goal to be determined I10 Time Spent (min) 25
[2023-10-27] MEDS: vancomycin 750 MG in sodium chloride 0.9% 250 ML 250 MG IV ×2 (10:54→20:39)
[2023-10-27] MEDS: ipratropium-albuterol 3 mL Neb INHALATION (20:21)
[2023-10-27 20:26] LABS: Methicillin-Resist S.aureu PCR NOT DETECTED (NOT DETECTED)
[2023-10-27] MEDS: trazodone 100 mg Tablet PO (20:40)
[2023-10-27] MEDS: atorvastatin 40 mg Tablet PO (20:40)
[2023-10-28] VITALS (10 sets, daily range): BP systolic 107–140; BP diastolic 63–87; PULSE 93–117; RESP 17–18; TEMP 36.4–36.8; O2SAT 86–94
[2023-10-28] MEDS: sodium chloride 0.9% 1,000 ML 50 ML IV (02:51)
[2023-10-28] MEDS: piperacillin-tazobactam 3.375 GM in sodium chloride 0.9% (plus) 50 ML IV ×2 (03:54→11:19)
[2023-10-28 07:18] LABS: Basophils % 0.4 %; Eosinophils # 0.2 10^3/uL (0.0-0.8); Eosinophils % 2.1 %; Hematocrit 40.7 % (36-47); Lymphocytes # 0.8 10^3/uL (0.8-4.8); Lymphocytes % 8.8 %; Mean Corpuscular HGB Conc 32.7 g/dL (30-55); Mean Corpuscular Hemoglobin 28.4 pg (27-33); Mean Corpuscular Volume 86.8 fl (85-98); Mean Platelet Volume 9.6 fL (7.4-10.4); Monocytes % 10.6 %; Neutrophils # 7.46 10^3/uL (1.8-7.7); Neutrophils % 77.9 %; Nucleated Red Blood Cells % 0 %; Platelet Count 481 10^3/cmm (157-399); Red Blood Count 4.69 10^6/uL (3.85-5.65); Red Cell Distribution Width 13.8 % (12.1-15.1); White Blood Count 9.58 10^3/uL (3.29-11.43)
[2023-10-28 07:38] LABS: Alanine Aminotransferase 19 U/L (0-33); Albumin Level 2.9 g/dL (3.5-5.2); Alkaline Phosphatase 123 U/L (35-105); Anion Gap 16.2 (5-19); Aspartate Amino Transferase 25 U/L (0-32); Blood Urea Nitrogen 4 mg/dL (6-20); Calcium 7.7 mg/dL (8.5-10.5); Carbon Dioxide 20 mmol/L (22-29); Chloride 107 mmol/L (98-107); Creatinine Clr Calc Pharmacy 99.8589; Glomerular Filtration Rate 127.6 mL/min (90-130); Glucose 95 mg/dL (65-115); Magnesium 1.6 mg/dL (1.7-2.3); Osmolality Calculated 287 mOsm/kg (285-295); Potassium 3.2 mmol/L (3.5-5.1); Sodium 140 mmol/L (136-145); Total Bilirubin 1.4 mg/dL (0.15-1.2); Total Protein 5.9 g/dL (6.6-8.7)
[2023-10-28 07:40] LABS: Vancomycin Trough 12.6 ug/mL (10-15)
[2023-10-28] MEDS: potassium chloride ER 20 mEq Tablet 40 MEQ PO (08:01)
[2023-10-28] MEDS: magnesium sulfate premix 2 GM/50 ML PIGGYBACK IV (08:01)
[2023-10-28] MEDS: budesonide 0.5 mg/2 mL Neb INHALATION (08:19)
[2023-10-28] MEDS: ipratropium-albuterol 3 mL Neb INHALATION (08:19)
[2023-10-28] MEDS: vancomycin 750 MG in sodium chloride 0.9% 250 ML 250 MG IV (09:38)
[2023-10-28] MEDS: nicotine 21 mg Patch 1 PATCH TRANSDERMA (09:41)
[2023-10-28] MEDS: multivitamin therapeutic Tablet 1 TAB PO (09:42)
[2023-10-28] MEDS: metoprolol tartrate 25 mg Tablet PO (09:42)
[2023-10-28] MEDS: folic acid 1 mg Tablet PO (09:42)
[2023-10-28] MEDS: clopidogrel 75 mg Tablet PO (09:42)
[2023-10-28] MEDS: amlodipine 5 mg Tablet PO ×2 (09:42→17:50)
[2023-10-28] MEDS: pantoprazole 40 mg SDV IVP (09:42)
[2023-10-28] MEDS: thiamine 100 mg Tablet PO (09:42)
[2023-10-28] MEDS: losartan 50 mg Tablet PO (09:42)
--- NOTE | 2023-10-28 13:18 | P.DS_ITS ---
Discharge Providers Date of Admission: 10/26/23 10:20 Date of Discharge: October 28, 2023 Attending Provider at Admission: Cecilia Moran MD Attending Provider at Discharge: Petey Gavin MD Diagnoses at Discharge Discharge Diagnosis (1) Pneumonia: Status: Acute (2) Hypoxia: Status: Acute (3) D-dimer, elevated: Status: Acute (4) Alcoholism: Status: Acute (5) Hypokalemia: Status: Acute (6) Nausea: Status: Acute (7) COPD (chronic obstructive pulmonary disease): Status: Acute (8) HTN (hypertension) with goal to be determined: Status: Acute Reason for Visit Reason for Visit: HEAT EXPOSURE Hospital Course Hospital Course Patient presented to the hospital with weakness and fatigue, short of breath, and there was concern she was overheating in her trailer as she had no air conditioning. On arrival to the emergency department it was noted that she was intoxicated, potassium was low, white blood cell count was significantly high, and there was evidence of pneumonia on chest x-ray. She was hypoxic requiring oxygen. She was placed in the hospital, for fluids, IV antibiotics initially consisting of Rocephin and doxycycline. When I evaluated her I was concerned regarding her tachycardia, and elevated dimer that had been done in the emergency department. A CTA was performed, which did not demonstrate pulmonary embolism. It did show significant bullous emphysema, a right lung mass, and possible adrenal mets. Enlarged lymph nodes were noted in the mediastinum.Secondary to persistently elevated heart rate, elevated white count, and a blood culture initially growing 1 out of 4 bottles her antibiotics were expanded to include vancomycin and Zosyn. Over the next course of days of her hospital stay she had significant improvement. Ultimately she was on 0 to 2 L of oxygen, qualified for 2 L with ambulation. She was much less short of breath. Tachycardia resolved. Blood culture ultimately grew staph, coag negative, thought to be contaminant and no further bottles grew. MRSA PCR was negative. In regards to her lung mass, I discussed with her the great importance of further evaluation of this with biopsy, to determine what treatment would be optimal. We will refer her to [facility] on discharge for follow-up as soon as possible. I did discuss with radiology the possibility of doing a biopsy here, but given its location they thought a significant risk for pneumothorax and bronchoscopy would be a better approach. There is currently not pulmonary with bronchoscopy available at this hospital. Other testing done during her hospital stay was an echocardiogram which demonstrated a small sized pericardial effusion, mild MR, and a preserved EF. She was instructed on risks and benefits of medicine, will finish 5 days of Levaquin, will also follow-up with a primary care provider which we set her up with in 3 to 5 days. She is to stop drinking, and stop tobacco. Head CT was done during her hospital course secondary to some nausea on day 2, and discovery of lung mass. This was negative for any hemorrhage, or mass. It did see a left CONTINUOUS PICKLING LINE PICKLER territory infarct, consistent with admission to the hospital in August of this year where left vertebral occlusion was noted. She was placed on Plavix and statin at that time. Physical Exam Narrative: General exam no distress Neck is supple Cardiovascular regular rate and rhythm without murmur Lungs diminished breath sounds bilaterally. No wheezes or crackles. Abdomen is soft Extremities no cyanosis clubbing edema Discharge Data Studies Completed and Pending Completed Studies During Hospitalization Category Date Time Status CT head wo con* [id number] Routine Cat Scan 10/27/23 08:07 Completed CTA chest [CT angio chest PE protcl [id number]] Routine Cat Scan 10/26/23 08:36 Completed CXRP [XR chest 1V portable [id number]] Stat Exams 10/25/23 20:49 Completed Pending at discharge Category Date Time Status Blood Culture Stat Lab 10/25/23 22:39 Results Blood Culture Stat Lab 10/27/23 09:36 Results CDIFF [C.Diff PCR (Lab)] Routine Lab 10/28/23 08:11 Uncollected Radiology Impressions Chest X-Ray 10/25/23 20:49 IMPRESSION: 1. Interval development of ill-defined interstitial and alveolar opacities in the right middle lobe and right lower lobe. Findings are suspicious for pneumonia, including atypical and viral organisms. Recommend followup chest imaging to insure resolution of these findings. 2. Incidental/nonacute findings are listed in the report. Chest CTA 10/26/23 08:36 IMPRESSION: 1. No evidence of pulmonary embolism. 2. 3 cm right upper lobe mass with spiculated margination suspicious for primary neoplasm although atypical benign pathology cannot be excluded. Extensive right hilar peribronchovascular soft tissue thickening which extends into the right lower and middle lobes which also demonstrate extensive reticulation. Differential diagnosis includes inflammatory/infectious change as well as metastatic spread with lymphangitic extension of tumor. Mild right middle lobe consolidation. Borderline mediastinal lymphadenopathy. 3. Left adrenal masses measuring up to 0.3 cm suspicious for metastatic disease although benign pathology cannot be excluded and dedicated adrenal CT or MRI could be performed for more detailed assessment. 4. Severe pulmonary emphysema. Moderate pericardial effusion. COMMENTS: Consistent with the [employer]'s Incidental Findings Committee white paper (J Am Lydia Radiol 2017): Any incidental adrenal lesion less than 1 cm is likely benign. No follow-up imaging is recommended for these lesions per consensus recommendations based on imaging criteria. Further lab evaluation could be pursued if warranted based on clinical findings. Head CT 10/27/23 08:07 IMPRESSION: 1. No evidence of intracranial hemorrhage or mass effect. 2. 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 Otherwise no acute intracranial findings. Laboratory Results WBC 9.58 10^3/uL (3.29-11.43) 10/28/23 07:10 RBC 4.69 10^6/uL (3.85-5.65) 10/28/23 07:10 Hgb 13.30 g/dL (11.27-16.99) 10/28/23 07:10 Hct 40.7 % (36-47) 10/28/23 07:10 MCV 86.8 fl (85-98) 10/28/23 07:10 MCH 28.4 pg (27-33) 10/28/23 07:10 MCHC 32.7 g/dL (30-55) 10/28/23 07:10 RDW 13.8 % (12.1-15.1) 10/28/23 07:10 Plt Count 481 10^3/cmm (157-399) H 10/28/23 07:10 MPV 9.6 fL (7.4-10.4) 10/28/23 07:10 Neut % (Auto) 77.9 % 10/28/23 07:10 Lymph % (Auto) 8.8 % 10/28/23 07:10 [place] % (Auto) 10.6 % 10/28/23 07:10 Eos % (Auto) 2.1 % 10/28/23 07:10 Baso % (Auto) 0.4 % 10/28/23 07:10 Neut # (Auto) 7.46 10^3/uL (1.8-7.7) 10/28/23 07:10 Lymph # (Auto) 0.8 10^3/uL (0.8-4.8) 10/28/23 07:10 [place] # (Auto) 1.0 10^3/uL (0.2-0.9) H 10/28/23 07:10 Eos # (Auto) 0.2 10^3/uL (0.0-0.8) 10/28/23 07:10 Baso # (Auto) 0.0 10^3/uL (0.0-0.1) 10/28/23 07:10 Nucleated RBC % (auto) 0 % 10/28/23 07:10 Nucleated RBCs # 0.0 /100WBC 10/28/23 07:10 D-Dimer 8.00 ug/mLFEU (0-0.59) H 10/25/23 23:43 Specimen Type Arterial 10/25/23 20:48 Sample Site Radial, right 10/25/23 20:48 ABG pH 7.42 (7.35-7.45) 10/25/23 20:48 ABG pCO2 32.7 mmHg (35-45) L 10/25/23 20:48 ABG pO2 81.2 mmHg (80.0-100.0) 10/25/23 20:48 ABG HCO3 21.2 mmol/L (22-26) L 10/25/23 20:48 ABG Base Excess -2.3 mmol/L (-2.0-2.0) L 10/25/23 20:48 Rito Test Pos 10/25/23 20:48 Hematocrit 51.7 % (37-47) H 10/25/23 20:48 O2 Delivery Device Nc 10/25/23 20:48 O2 Liters/Min 2.0 % 10/25/23 20:48 Louver Mortiser Operator ID Cl 10/25/23 20:48 Sodium 140 mmol/L (136-145) 10/28/23 07:10 Potassium 3.2 mmol/L (3.5-5.1) L 10/28/23 07:10 Chloride 107 mmol/L (98-107) 10/28/23 07:10 Carbon Dioxide 20 mmol/L (22-29) L 10/28/23 07:10 Anion Gap 16.2 (5-19) 10/28/23 07:10 BUN 4 mg/dL (6-20) L 10/28/23 07:10 Creatinine 0.5 mg/dL (0.5-0.9) 10/28/23 07:10 GFR Calculation 127.6 mL/min (90-130) 10/28/23 07:10 Glucose 95 mg/dL (65-115) 10/28/23 07:10 Calculated Osmolality 287 mOsm/kg (285-295) 10/28/23 07:10 Calcium 7.7 mg/dL (8.5-10.5) L 10/28/23 07:10 Magnesium 1.6 mg/dL (1.7-2.3) L 10/28/23 07:10 Total Bilirubin 1.4 mg/dL (0.15-1.2) H 10/28/23 07:10 AST 25 U/L (0-32) 10/28/23 07:10 ALT 19 U/L (0-33) 10/28/23 07:10 Alkaline Phosphatase 123 U/L (35-105) H 10/28/23 07:10 Creatine Kinase 277 U/L (26-192) H 10/25/23 20:36 Total Protein 5.9 g/dL (6.6-8.7) L 10/28/23 07:10 Albumin 2.9 g/dL (3.5-5.2) L 10/28/23 07:10 Globulin 3.0 g/dL (1.3-4.6) 10/28/23 07:10 Lipase 12 U/L (13-60) L 10/26/23 11:15 TSH 0.35 uIU/mL (0.27-4.20) 10/25/23 20:36 Vancomycin Trough 12.6 ug/mL (10-15) 10/28/23 07:10 Urine Opiates Screen Negative ng/mL (Negative) 10/25/23 05:00 Ur Barbiturates Screen Negative ng/mL (Negative) 10/25/23 05:00 Ur Phencyclidine Scrn Negative ng/mL (Negative) 10/25/23 05:00 Ur Amphetamines Screen Negative ng/mL (Negative) 10/25/23 05:00 U Benzodiazepines Scrn Negative ng/mL (Negative) 10/25/23 05:00 Urine Cocaine Screen Negative ng/mL (Negative) 10/25/23 05:00 U Marijuana (THC) Screen Positive ng/mL (Negative) H 10/25/23 05:00 Ethyl Alcohol 207 mg/dL (0-10) H 10/25/23 20:36 Adenovirus (PCR) Not detected (NOT DETECT) 10/26/23 14:33 C. pneumoniae DNA (PCR) Not detected (NOT DETECT) 10/26/23 14:33 Coronavirus 229E (PCR) Not detected (NOT DETECT) 10/26/23 14:33 Human Metapneumovir PCR Not detected (NOT DETECT) 10/26/23 14:33 Influenza A (H1) PCR Not detected (NOT DETECT) 10/26/23 14:33 Influ A (H1/09) PCR Not detected (NOT DETECT) 10/26/23 14:33 Influenza A (H3) PCR Not detected (NOT DETECT) 10/26/23 14:33 Influenza Type A (PCR) Not detected (NOT DETECT) 10/26/23 14:33 Influenza Type B (PCR) Not detected (NOT DETECT) 10/26/23 14:33 M. pneumoniae (PCR) Not detected (NOT DETECT) 10/26/23 14:33 Parainfluenza 1 (PCR) Not detected (NOT DETECT) 10/26/23 14:33 Parainfluenza 2 (PCR) Not detected (NOT DETECT) 10/26/23 14:33 Parainfluenza 3 (PCR) Not detected (NOT DETECT) 10/26/23 14:33 Parainfluenza 4 (PCR) Not detected (NOT DETECT) 10/26/23 14:33 RSV Type A (PCR) Not detected (NOT DETECT) 10/26/23 14:33 RSV Type B (PCR) Not detected (NOT DETECT) 10/26/23 14:33 Entero/Rhino (PCR) Not detected (NOT DETECT) 10/26/23 14:33 SARS-CoV-2 (PCR) Not detected (NOT DETECT) 10/26/23 14:33 MRSA (PCR) Not detected (NOT DETECTED) 10/26/23 14:33 Vitals Last Vital Signs Temp 98.2 F 10/28/23 07:42 Pulse 93 10/28/23 11:25 Resp 17 10/28/23 11:25 BP 124/82 10/28/23 11:25 Pulse Ox 94 10/28/23 11:25 O2 Del Method Nasal Cannula 10/28/23 11:25 O2 Flow Rate 2 10/28/23 10:55 Discharge Plan Discharge Patient Disposition: Home Condition: Stable Prescriptions: New pantoprazole [Protonix] 40 mg tablet,delayed release (DR/EC) 40 mg PO DAILY Qty: 30 0RF metoprolol tartrate 25 mg Tablet 25 mg PO BID@0900,2100 Qty: 60 0RF levofloxacin 750 mg tablet 750 mg PO DAILY 5 Days Qty: 5 0RF Continued clopidogrel 75 mg Tablet 75 mg PO DAILY Qty: 21 0RF amlodipine [Norvasc] 5 mg tablet 5 mg PO BID Qty: 60 0RF losartan 50 mg Tablet 50 mg PO DAILY atorvastatin 40 mg Tablet 40 mg PO BEDTIME DuoNeb 0.5 mg-3 mg(2.5 mg base)/3 mL Solution For Nebulization 3 ml INHALATION Q4H PRN (Reason: Shortness Of Breath) Ventolin HFA 90 mcg/actuation Hfa Aerosol Inhaler 2 puff INHALATION Q6H PRN (Reason: Shortness Of Breath) Chantix 1 mg Tablet 1 mg PO BID Anoro Ellipta 62.5-25 mcg/actuation Blister With Device 1 inh INHALATION DAILY Discharge Orders: Discharge Order (Routine); Ordered 10/28/23 Ordered By: Petey Gavin Other Ambulatory Orders: DME: Oxygen (Order) Location: None Selected Ordered By: Petey Gavin Referrals: [facility] [Other] (We have faxed your referral to [facility]. If you don't hear from them by 11/06/23, please call case management at [phone] so that we can assist in following up on your referral. ) [facility] [place] Hannah Russo NP [Nurse Practitioner] - 11/05/23 10:00 am () Discharge Diet: Cardiac Discharge Activity: Increase activity as tolerated Patient Instructions: Metoprolol (By mouth), Levofloxacin (By mouth) (Levaquin, Levaquin Leva-keisha), Pantoprazole (By mouth), Using Oxygen at Home (GEN), Opioid Safety Activity Restrictions/Additional Instructions: Oxygen on discharge, 2 L Take all medicine as prescribed Follow-up with primary care provider 3 to 5 days Pulmonary follow up at [facility] Discharge Attestations Time Spent in Discharge Care*: greater than 30 min Quality Metrics Clinical Quality Measures [ No reported AMI, CVA or VTE this stay] Coding Level of Care Code 69014 Total time (in minutes) for Discharge: 45 Diagnoses Pneumonia J18.9 Hypoxia R09.02 D-dimer, elevated R79.89 Alcoholism F10.20 Hypokalemia E87.6 Nausea R11.0 COPD (chronic obstructive pulmonary disease) J44.9 HTN (hypertension) with goal to be determined I10
--- NOTE | 2023-10-28 18:37 | PC.NURSE ---
Discussed discharged, new medications, continued medications, follow up appointments and to notify [facility] if they have not called her by 11/05. Also explained the importance of not smoking while on oxygen. Verbalized understanding from patient.
== END 2023-10-28 18:30 | disposition home or self-care (01) | DRG 194 ==
LOC: ER 21:35 → MEDSURG 22:28
PROVIDERS: Admitting Provider Internal Medicine; Emergency Provider Emergency Medicine; Visit Provider Internal Medicine
DX: J18.9 Pneumonia, unspecified organism (principal); I31.39 Other pericardial effusion (noninflammatory); I10 Essential (primary) hypertension; Z86.73 Personal history of transient ischemic attack (TIA), and cerebral infarction without residual deficits; L68.0 Hirsutism; F17.210 Nicotine dependence, cigarettes, uncomplicated; R00.0 Tachycardia, unspecified; E87.6 Hypokalemia; R91.8 Other nonspecific abnormal finding of lung field; R11.0 Nausea; R79.89 Other specified abnormal findings of blood chemistry; R59.0 Localized enlarged lymph nodes; F10.229 Alcohol dependence with intoxication, unspecified; Y90.7 Blood alcohol level of 200-239 mg/100 ml; R09.02 Hypoxemia; X30.XXXA Exposure to excessive natural heat, initial encounter; Y92.027 Garden or yard of mobile home as the place of occurrence of the external cause; T67.5XXA Heat exhaustion, unspecified, initial encounter; J43.9 Emphysema, unspecified
CPT/HCPCS: 36415; 36600; 70450; 71045; 71275; 80053; 80202; 80306; 80307; 82550; 82803; 83690; 83735; 84443; 85025; 85378; 87040; 87077; 87150; 87186; 87205; 87486; 87581; 87633; 87641; 90471; 90732; 93005; 94640; 94760; 96365; 96367; 96372; 97116; 97161; 97530; 99285; C9113; G0378; J0696; J1650; J2405; J2543; J3370; J3411; J3475; J7030; J7050; J7626; Q9967

== ENCOUNTER 2023-12-03 16:06 | Inpatient (IN) | payer MEDICAID, SELFPAY ==
[2023-12-03] VITALS (11 sets, daily range): BP systolic 116–154; BP diastolic 93–113; PULSE 116–134; RESP 22–35; TEMP 36.9; O2SAT 95–100; BMI 21.3
--- NOTE | 2023-12-03 16:09 | XRR_ITS ---
PROCEDURE INFORMATION: Exam: XR Chest Exam date and time: 12/03/2023 4:50 PM Age: 58 years old Clinical indication: Smoker's cough; Additional info: Dyspnea/cough TECHNIQUE: Imaging protocol: Radiologic exam of the chest. Views: 1 view. COMPARISON: 1. CT angio chest PE protcl [id number] 10/26/2023 3:11 PM 2. CR (CHEST, ) 10/25/2023 8:53 PM 3. CR XR chest 1V portable [id number] 09/06/2023 6:28 PM FINDINGS: Lungs: Pulmonary hyperinflation with chronic appearing glmqa-letdwup-jneg-left lower lung zone reticulation. No consolidation. Right lower lung zone calcified granuloma. Pleural spaces: Unremarkable. No pleural effusion. No pneumothorax. Heart/Mediastinum: Interval widening of the cardiac silhouette. Bones/joints: Unremarkable. XR/XR chest 1V portable [id number] IMPRESSION: 1. Interval widening of the cardiac silhouette may represent worsened pericardial effusion or cardiomegaly. 2. COPD with similar chronic appearing iiogh-hmihzxl-cdgv-left lower lung zone reticulation. No consolidation.
--- NOTE | 2023-12-03 16:09 | ECG_ITS ---
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 Measurements Intervals [place] Rate: 136 P: 69 CO: 100 QRS: 81 QRSD: 65 T: 106 QT: 330 QTc: 498 Interpretive Statements SINUS TACHYCARDIA WITH SHORT CO INTERVAL LOW QRS VOLTAGE IN PRECORDIAL LEADS [QRS DEFLECTION < 1.0 mV IN CHEST LEADS] SEPTAL MYOCARDIAL INFARCTION , PROBABLY OLD [40+ ms Q WAVE IN V1/V2] Compared to ECG 10/26/2023 06:06:43 Short CO interval now present Low QRS voltage now present Myocardial infarct finding now present Electronically Signed On 12-03-2023 18:29:36 CDT by Kory Corral M.D. [email or web address]
--- NOTE | 2023-12-03 16:15 | W.ED.SOB ---
Documented by User: Chan Vaughan DO 12/04/23 07:03 HPI - SOB/Dyspnea General: Chief Complaint: Shortness of Breath/Dyspnea Stated Complaint: resp distress Time Seen by Provider: 12/03/23 16:08 History of Present Illness: HPI Narrative: 58-year-old female who presents to the emergency room with complaint difficulty breathing has been ongoing for the last several days. Patient has history of COPD and is a smoker has been trying to decrease. Nebulizers have not been improving breathing denies any hemoptysis increased baseline mucousy cough. Is also complaining of chest pain no radiation of chest pain to the neck back or arms. Associated symptoms: Reports chest congestion; Deny abdominal pain, chest pain or fever(s) Related Data Home Medications Medication Instructions Recorded Confirmed albuterol sulfate 90 mcg/actuation 2 puff inhalation Q6H PRN 10/26/23 10/26/23 aerosol inhaler (Ventolin HFA) Shortness Of Breath atorvastatin 40 mg tablet 40 mg PO BEDTIME 10/26/23 10/26/23 ipratropium 0.5 mg-albuterol 3 mg 3 ml inhalation Q4H PRN Shortness 10/26/23 10/26/23 (2.5 mg base)/3 mL nebulization Of Breath soln losartan 50 mg tablet 50 mg PO DAILY 10/26/23 10/26/23 umeclidinium 62.5 mcg-vilanterol 1 inh inhalation DAILY 10/26/23 10/26/23 25 mcg/actuation powdr for inhalation (Anoro Ellipta) varenicline 1 mg tablet (Chantix) 1 mg PO BID 10/26/23 10/26/23 Previous Rx's Medication Instructions Recorded amlodipine 5 mg tablet (Norvasc) 5 mg PO BID #60 tabs 09/07/23 clopidogrel 75 mg tablet 75 mg PO DAILY #21 tabs 09/07/23 metoprolol tartrate 25 mg tablet 25 mg PO BID@0900,2100 #60 tabs 10/28/23 pantoprazole 40 mg tablet,delayed 40 mg PO DAILY #30 tabs 10/28/23 release (Protonix) Allergies Allergy/AdvReac Type Severity Reaction Status Date / Time No Known Allergies Allergy Verified 12/03/23 16:16 Review of Systems Const: Denies: fever(s) or chills Card: Denies: chest pain Resp: Reports: dyspnea, non-productive cough, wheezing and chest congestion GI: Denies: abdominal pain : Denies: dysuria, urinary frequency or urinary urgency Musc: Denies: neck pain or back pain Skin/Breast: Denies: rash PFSH ED PFSH: Medical History HTN (hypertension) with goal to be determined COPD (chronic obstructive pulmonary disease) Hirsutism Hypertension Alcohol intoxication Brain TIA Social History (Updated 12/03/23 @ 23:42 by Rafael Leal MD) Smoking and tobacco/nicotine status: current every day tobacco/nicotine user cigarettes Alcohol intake: former Former alcohol use details: States she is quit, has not had any alcohol since last admission. Substance/Drug Use: current Substance/Drug use frequency: other Substance/Drug use type: Marijuana Other substance/drug use details: Rare Physical Exam Const: GENERAL APPEARANCE: cooperative ORIENTATION/CONSCIOUSNESS: Yes awake, Yes oriented to person, Yes oriented to place and Yes oriented to time HENMT: COMMON NORMALS: normocephalic, atraumatic and hearing grossly normal bilaterally HEAD & SCALP: normocephalic and atraumatic Resp: EFFORT & INSPECTION: Yes abnormal respiratory pattern, Yes respiratory distress, Yes retractions and Yes uses accessory muscles AUSCULTATION: rales, wheezes and diminished lung sounds Cardio: COMMON NORMALS: regular rate, regular rhythm and No murmurs present (Cardio) RATE: regular rate RHYTHM: regular rhythm GI: COMMON NORMALS: Soft to palpation and No hepatosplenomegaly present AUSCULTATION: Yes normoactive bowel sounds PALPATION: Yes Soft to palpation, No Tenderness to palpation present (GI), No Guarding due to palpation present (GI) and Yes No hepatosplenomegaly present Extremity: COMMON NORMALS: normal to inspection, capillary refill normal, no clubbing, cyanosis or edema, no calf tenderness and no pedal edema Neuro: SENSORIUM/ORIENTATION: Yes oriented to person, Yes oriented to place and Yes oriented to time Skin: COMMON NORMALS: no rashes or lesions noted GENERAL SKIN EXAM: no rashes or lesions noted Course Vital Signs: Vital signs: Vital Signs Temperature 98.2 F 12/04/23 04:00 Pulse Rate 100 12/04/23 06:00 Respiratory Rate 27 H 12/04/23 04:30 Blood Pressure 131/99 12/04/23 04:30 Pulse Oximetry 94 12/04/23 04:30 Oxygen Delivery Me thod BiPAP 12/04/23 04:30 Oxygen Flow Rate 7 12/03/23 16:07 Fraction of Inspir ed Oxygen 30 12/04/23 04:30 MDM - SOB/Dyspnea Medical Decision Making Patient hospitalized approximately 5 to 6 weeks ago at that time CTA of the chest showed a spiculated mass with reticular changes. Today's chest x-ray shows significant more cardiomegaly than previous there was a small pericardial effusion and a previous CTA of the chest. There is concern for metastatic lesions in the adrenal glands particularly the left adrenal gland. There is also concern of a metastatic changes in the right lower lung. This has not been fully evaluated. D-dimer was elevated at that time. Will admit for acute respiratory failure with hypoxemia from her COPD. Blood gas at currently she is compensating but she is tachypneic enough I believe she will continue to worsen if she does not have assistance from BiPAP. Echo pending. A consult to Dr. Roberts as well. Discussed with Dr. Sandoval initially. Will going to evaluate the pericardial effusion seen on chest x-ray to ensure we can manage this in house. Care signed out to Dr. Zaragoza at change of shift. See final notes for diagnosis and disposition. Care transferred over to myself at shift change, echo was performed preliminarily read off as very large pericardial effusion. These results were discussed with Dr. Roberts who came into evaluate the patient and look at the results himself. He is going to take her to the Assistant Coach tonight put in a drain and wants her admitted to the hospitalist placed in ICU. Dr. Leal was consulted who agreed to place patient in ICU for further evaluation and treatment. Medical Records . Lab Data 12/03/23 16:35 12/03/23 16:35 Labs/Radiology: Radiology Impressions Chest X-Ray 12/03/23 16:09 IMPRESSION: 1. Interval widening of the cardiac silhouette may represent worsened pericardial effusion or cardiomegaly. 2. COPD with similar chronic appearing gahnt-[place]-swol-left lower lung zone reticulation. No consolidation. Laboratory Results WBC 8.77 10^3/uL (3.29-11.43) 12/03/23 16:35 RBC 4.91 10^6/uL (3.85-5.65) 12/03/23 16:35 Hgb 13.90 g/dL (11.27-16.99) 12/03/23 16:35 Hct 43.4 % (36-47) 12/03/23 16:35 MCV 88.4 fl (85-98) 12/03/23 16:35 MCH 28.3 pg (27-33) 12/03/23 16:35 MCHC 32.0 g/dL (30-55) 12/03/23 16:35 RDW 17.1 % (12.1-15.1) H 12/03/23 16:35 Plt Count 528 10^3/cmm (157-399) H 12/03/23 16:35 MPV 9.9 fL (7.4-10.4) 12/03/23 16:35 Neut % (Auto) 74.3 % 12/03/23 16:35 Lymph % (Auto) 12.4 % 12/03/23 16:35 [place] % (Auto) 12.4 % 12/03/23 16:35 Eos % (Auto) 0.1 % 12/03/23 16:35 Baso % (Auto) 0.3 % 12/03/23 16:35 Neut # (Auto) 6.51 10^3/uL (1.8-7.7) 12/03/23 16:35 Lymph # (Auto) 1.1 10^3/uL (0.8-4.8) 12/03/23 16:35 [place] # (Auto) 1.1 10^3/uL (0.2-0.9) H 12/03/23 16:35 Eos # (Auto) 0.0 10^3/uL (0.0-0.8) 12/03/23 16:35 Baso # (Auto) 0.0 10^3/uL (0.0-0.1) 12/03/23 16:35 Nucleated RBC % (auto) 0 % 12/03/23 16:35 Nucleated RBCs # 0.0 /100WBC 12/03/23 16:35 D-Dimer 1.18 ug/mLFEU (0-0.59) H 12/03/23 16:35 Specimen Type Arterial 12/03/23 19:58 Sample Site Radial, left 12/03/23 19:58 ABG pH 7.45 (7.35-7.45) 12/03/23 19:58 ABG pCO2 24.6 mmHg (35-45) L 12/03/23 19:58 ABG pO2 156.0 mmHg (80.0-100.0) H 12/03/23 19:58 ABG PO2/FiO2 Ratio 520 12/03/23 19:58 ABG HCO3 17.1 mmol/L (22-26) L 12/03/23 19:58 ABG O2 Saturation 99.3 12/03/23 19:58 ABG Base Excess -5.2 mmol/L (-2.0-2.0) L 12/03/23 19:58 Rito Test Pos 12/03/23 19:58 A-a O2 Gradient 3.1 mmHg (5-10) L 12/03/23 19:58 Hematocrit 41.0 % (37-47) 12/03/23 19:58 Hgb O2 Saturation 97.9 % (95-100) 12/03/23 19:58 Carboxyhemoglobin 0.3 %THgb (0.4-20.1) L 12/03/23 19:58 Methemoglobin 1.2 % (0.4-1.5) 12/03/23 19:58 Total Hemoglobin 13.4 g/dL (12-16) 12/03/23 19:58 Sodium 139.0 mmol/L (131-143) 12/03/23 19:58 Potassium 4.2 mmol/L (3.5-5.0) 12/03/23 19:58 Glucose 123.0 mg/dL (70-115) H 12/03/23 19:58 Ionized Calcium 1.1 mmol/L (1.1-1.4) 12/03/23 19:58 O2 Delivery Device Bipap 12/03/23 19:58 O2 Liters/Min 7.0 % 12/03/23 16:07 FiO2 30.0 % 12/03/23 19:58 Marketing Area Manager ID Cl 12/03/23 19:58 Sodium 142 mmol/L (136-145) 12/03/23 16:35 Potassium 3.6 mmol/L (3.5-5.1) 12/03/23 16:35 Chloride 100 mmol/L (98-107) 12/03/23 16:35 Carbon Dioxide 23 mmol/L (22-29) 12/03/23 16:35 Anion Gap 22.6 (5-19) H 12/03/23 16:35 BUN 10 mg/dL (6-20) 12/03/23 16:35 Creatinine 0.7 mg/dL (0.5-0.9) 12/03/23 16:35 GFR Calculation 86.6 mL/min (90-130) L 12/03/23 16:35 Glucose 101 mg/dL (65-115) 12/03/23 16:35 Calculated Osmolality 293 mOsm/kg (285-295) 12/03/23 16:35 Lactic Acid 3.0 mmol/L (0.5-2.2) H 12/03/23 16:35 Lactic Acid (Sepsis) 3.2 mmol/L (0.5-2.2) H 12/03/23 20:32 Calcium 9.4 mg/dL (8.5-10.5) 12/03/23 16:35 Total Bilirubin 0.9 mg/dL (0.15-1.2) 12/03/23 16:35 AST 49 U/L (0-32) H 12/03/23 16:35 ALT 45 U/L (0-33) H 12/03/23 16:35 Alkaline Phosphatase 169 U/L (35-105) H 12/03/23 16:35 Creatine Kinase 61 U/L (26-192) 12/03/23 22:42 Troponin T Baseline 13 ng/L (0-10) H 12/03/23 16:35 Troponin T 120 Minute 7.20 ng/L (0-10) 12/03/23 18:10 Delta Troponin T -5.80 ABS# (0-10) L 12/03/23 18:10 Troponin T Hi Sens 6Hr 10.91 ng/L (0-10) H 12/03/23 22:42 Troponin T Hi Sens 6Hr Delta -2.09 ng/L (0-12) L 12/03/23 22:42 NT-Pro-B Natriuret Pep 715 pg/mL (0-125) H 12/03/23 16:35 Total Protein 6.8 g/dL (6.6-8.7) 12/03/23 16:35 Albumin 3.9 g/dL (3.5-5.2) 12/03/23 16:35 Globulin 2.9 g/dL (1.3-4.6) 12/03/23 16:35 Urine Color Dark yellow (Yellow) A 12/03/23 16:48 Urine Appearance Clear (CLEAR) 12/03/23 16:48 Urine pH 6.0 (5-7) 12/03/23 16:48 Ur Specific [place] 1.030 (1.005-1.030) 12/03/23 16:48 Urine Protein 2+ (Negative) A 12/03/23 16:48 Urine Glucose (UA) Trace (Normal) H 12/03/23 16:48 Urine Ketones 1+ (Negative) H 12/03/23 16:48 Urine Blood Negative (Negative) 12/03/23 16:48 Urine Nitrate Negative (Negative) 12/03/23 16:48 Urine Bilirubin Negative (Negative) 12/03/23 16:48 Urine Urobilinogen 1.0 mg/dL (Negative) 12/03/23 16:48 Ur Leukocyte Esterase 1+ (Negative) A 12/03/23 16:48 Urine RBC 5-10 /hpf (0-2) H 12/03/23 16:48 Urine WBC 10-15 /hpf (0-5) H 12/03/23 16:48 Ur Squamous Epith Cells 0-4 /hpf (0-5) H 12/03/23 16:48 Amorphous Sediment Not Reportable 12/03/23 16:48 Urine Bacteria 1+ /hpf (NONE) H 12/03/23 16:48 Hyaline Casts 15-25 /lpf H 12/03/23 16:48 Other Casts Wbc cast /lpf 12/03/23 16:48 Urine Mucus 1+ /hpf 12/03/23 16:48 Adenovirus (PCR) Not detected (NOT DETECT) 12/03/23 16:34 C. pneumoniae DNA (PCR) Not detected (NOT DETECT) 12/03/23 16:34 Coronavirus 229E (PCR) Not detected (NOT DETECT) 12/03/23 16:34 Human Metapneumovir PCR Not detected (NOT DETECT) 12/03/23 16:34 Influenza A (H1) PCR Not detected (NOT DETECT) 12/03/23 16:34 Influ A (H1/09) PCR Not detected (NOT DETECT) 12/03/23 16:34 Influenza A (H3) PCR Not detected (NOT DETECT) 12/03/23 16:34 Influenza Type A (PCR) Not detected (NOT DETECT) 12/03/23 16:34 Influenza Type B (PCR) Not detected (NOT DETECT) 12/03/23 16:34 M. pneumoniae (PCR) Not detected (NOT DETECT) 12/03/23 16:34 Parainfluenza 1 (PCR) Not detected (NOT DETECT) 12/03/23 16:34 Parainfluenza 2 (PCR) Not detected (NOT DETECT) 12/03/23 16:34 Parainfluenza 3 (PCR) Not detected (NOT DETECT) 12/03/23 16:34 Parainfluenza 4 (PCR) Not detected (NOT DETECT) 12/03/23 16:34 RSV Type A (PCR) Not detected (NOT DETECT) 12/03/23 16:34 RSV Type B (PCR) Not detected (NOT DETECT) 12/03/23 16:34 Entero/Rhino (PCR) Not detected (NOT DETECT) 12/03/23 16:34 SARS-CoV-2 (PCR) Not detected (NOT DETECT) 12/03/23 16:34 Discharge Plan Discharge Patient Disposition: Admitted As Inpatient Admit Provider: Rafael Leal Clinical Impression: Acute exacerbation of chronic obstructive airways disease, Cardiomegaly, Elevated transaminase level, Acute and chronic respiratory failure with hypoxia, Mass of left lung, Pericardial effusion Condition: Stable Coding Level of Care Code ED Decorating Machine Operator for Chg Fwd Documented by User: Xavi Zaragoza DO 12/04/23 02:40 HPI - SOB/Dyspnea General: Chief Complaint: Shortness of Breath/Dyspnea Stated Complaint: resp distress Time Seen by Provider: 12/03/23 16:08 Related Data Home Medications Medication Instructions Recorded Confirmed albuterol sulfate 90 mcg/actuation 2 puff inhalation Q6H PRN 10/26/23 10/26/23 aerosol inhaler (Ventolin HFA) Shortness Of Breath atorvastatin 40 mg tablet 40 mg PO BEDTIME 10/26/23 10/26/23 ipratropium 0.5 mg-albuterol 3 mg 3 ml inhalation Q4H PRN Shortness 10/26/23 10/26/23 (2.5 mg base)/3 mL nebulization Of Breath soln losartan 50 mg tablet 50 mg PO DAILY 10/26/23 10/26/23 umeclidinium 62.5 mcg-vilanterol 1 inh inhalation DAILY 10/26/23 10/26/23 25 mcg/actuation powdr for inhalation (Anoro Ellipta) varenicline 1 mg tablet (Chantix) 1 mg PO BID 10/26/23 10/26/23 Previous Rx's Medication Instructions Recorded amlodipine 5 mg tablet (Norvasc) 5 mg PO BID #60 tabs 09/07/23 clopidogrel 75 mg tablet 75 mg PO DAILY #21 tabs 09/07/23 metoprolol tartrate 25 mg tablet 25 mg PO BID@0900,2100 #60 tabs 10/28/23 pantoprazole 40 mg tablet,delayed 40 mg PO DAILY #30 tabs 10/28/23 release (Protonix) Allergies Allergy/AdvReac Type Severity Reaction Status Date / Time No Known Allergies Allergy Verified 12/03/23 16:16 [facility] ED PFSH: Medical History HTN (hypertension) with goal to be determined COPD (chronic obstructive pulmonary disease) Hirsutism Hypertension Alcohol intoxication Brain TIA Social History (Updated 12/03/23 @ 23:42 by Rafael Leal MD) Smoking and tobacco/nicotine status: current every day tobacco/nicotine user cigarettes Alcohol intake: former Former alcohol use details: States she is quit, has not had any alcohol since last admission. Substance/Drug Use: current Substance/Drug use frequency: other Substance/Drug use type: Marijuana Other substance/drug use details: Rare Course Vital Signs: Vital signs: Vital Signs Temperature 98.2 F 12/04/23 04:00 Pulse Rate 100 12/04/23 06:00 Respiratory Rate 27 H 12/04/23 04:30 Blood Pressure 131/99 12/04/23 04:30 Pulse Oximetry 94 12/04/23 04:30 Oxygen Delivery Me thod BiPAP 12/04/23 04:30 Oxygen Flow Rate 7 12/03/23 16:07 Fraction of Inspir ed Oxygen 30 12/04/23 04:30 MDM - SOB/Dyspnea Medical Decision Making Patient hospitalized approximately 5 to 6 weeks ago at that time CTA of the chest showed a spiculated mass with reticular changes. Today's chest x-ray shows significant more cardiomegaly than previous there was a small pericardial effusion and a previous CTA of the chest. There is concern for metastatic lesions in the adrenal glands particularly the left adrenal gland. There is also concern of a metastatic changes in the right lower lung. This has not been fully evaluated. D-dimer was elevated at that time. Will admit for acute respiratory failure with hypoxemia from her COPD. Blood gas at currently she is compensating but she is tachypneic enough I believe she will continue to worsen if she does not have assistance from BiPAP. Care transferred over to myself at shift change, echo was performed preliminarily read off as very large pericardial effusion. These results were discussed with Dr. Roberts who came into evaluate the patient and look at the results himself. He is going to take her to the Assistant Coach tonight put in a drain and wants her admitted to the hospitalist placed in ICU. Dr. Leal was consulted who agreed to place patient in ICU for further evaluation and treatment. Medical Records I reviewed the patient's medical records. Lab Data I reviewed the patient's lab results. 12/03/23 16:35 12/03/23 16:35 Labs/Radiology: Radiology Impressions Chest X-Ray 12/03/23 16:09 IMPRESSION: 1. Interval widening of the cardiac silhouette may represent worsened pericardial effusion or cardiomegaly. 2. COPD with similar chronic appearing zccbg-jayyaeg-mqvz-left lower lung zone reticulation. No consolidation. Laboratory Results WBC 8.77 10^3/uL (3.29-11.43) 12/03/23 16:35 RBC 4.91 10^6/uL (3.85-5.65) 12/03/23 16:35 Hgb 13.90 g/dL (11.27-16.99) 12/03/23 16:35 Hct 43.4 % (36-47) 12/03/23 16:35 MCV 88.4 fl (85-98) 12/03/23 16:35 MCH 28.3 pg (27-33) 12/03/23 16:35 MCHC 32.0 g/dL (30-55) 12/03/23 16:35 RDW 17.1 % (12.1-15.1) H 12/03/23 16:35 Plt Count 528 10^3/cmm (157-399) H 12/03/23 16:35 MPV 9.9 fL (7.4-10.4) 12/03/23 16:35 Neut % (Auto) 74.3 % 12/03/23 16:35 Lymph % (Auto) 12.4 % 12/03/23 16:35 [place] % (Auto) 12.4 % 12/03/23 16:35 Eos % (Auto) 0.1 % 12/03/23 16:35 Baso % (Auto) 0.3 % 12/03/23 16:35 Neut # (Auto) 6.51 10^3/uL (1.8-7.7) 12/03/23 16:35 Lymph # (Auto) 1.1 10^3/uL (0.8-4.8) 12/03/23 16:35 [place] # (Auto) 1.1 10^3/uL (0.2-0.9) H 12/03/23 16:35 Eos # (Auto) 0.0 10^3/uL (0.0-0.8) 12/03/23 16:35 Baso # (Auto) 0.0 10^3/uL (0.0-0.1) 12/03/23 16:35 Nucleated RBC % (auto) 0 % 12/03/23 16:35 Nucleated RBCs # 0.0 /100WBC 12/03/23 16:35 D-Dimer 1.18 ug/mLFEU (0-0.59) H 12/03/23 16:35 Specimen Type Arterial 12/03/23 19:58 Sample Site Radial, left 12/03/23 19:58 ABG pH 7.45 (7.35-7.45) 12/03/23 19:58 ABG pCO2 24.6 mmHg (35-45) L 12/03/23 19:58 ABG pO2 156.0 mmHg (80.0-100.0) H 12/03/23 19:58 ABG PO2/FiO2 Ratio 520 12/03/23 19:58 ABG HCO3 17.1 mmol/L (22-26) L 12/03/23 19:58 ABG O2 Saturation 99.3 12/03/23 19:58 ABG Base Excess -5.2 mmol/L (-2.0-2.0) L 12/03/23 19:58 Rito Test Pos 12/03/23 19:58 A-a O2 Gradient 3.1 mmHg (5-10) L 12/03/23 19:58 Hematocrit 41.0 % (37-47) 12/03/23 19:58 Hgb O2 Saturation 97.9 % (95-100) 12/03/23 19:58 Carboxyhemoglobin 0.3 %THgb (0.4-20.1) L 12/03/23 19:58 Methemoglobin 1.2 % (0.4-1.5) 12/03/23 19:58 Total Hemoglobin 13.4 g/dL (12-16) 12/03/23 19:58 Sodium 139.0 mmol/L (131-143) 12/03/23 19:58 Potassium 4.2 mmol/L (3.5-5.0) 12/03/23 19:58 Glucose 123.0 mg/dL (70-115) H 12/03/23 19:58 Ionized Calcium 1.1 mmol/L (1.1-1.4) 12/03/23 19:58 O2 Delivery Device Bipap 12/03/23 19:58 O2 Liters/Min 7.0 % 12/03/23 16:07 FiO2 30.0 % 12/03/23 19:58 Marketing Area Manager ID Cl 12/03/23 19:58 Sodium 142 mmol/L (136-145) 12/03/23 16:35 Potassium 3.6 mmol/L (3.5-5.1) 12/03/23 16:35 Chloride 100 mmol/L (98-107) 12/03/23 16:35 Carbon Dioxide 23 mmol/L (22-29) 12/03/23 16:35 Anion Gap 22.6 (5-19) H 12/03/23 16:35 BUN 10 mg/dL (6-20) 12/03/23 16:35 Creatinine 0.7 mg/dL (0.5-0.9) 12/03/23 16:35 GFR Calculation 86.6 mL/min (90-130) L 12/03/23 16:35 Glucose 101 mg/dL (65-115) 12/03/23 16:35 Calculated Osmolality 293 mOsm/kg (285-295) 12/03/23 16:35 Lactic Acid 3.0 mmol/L (0.5-2.2) H 12/03/23 16:35 Lactic Acid (Sepsis) 3.2 mmol/L (0.5-2.2) H 12/03/23 20:32 Calcium 9.4 mg/dL (8.5-10.5) 12/03/23 16:35 Total Bilirubin 0.9 mg/dL (0.15-1.2) 12/03/23 16:35 AST 49 U/L (0-32) H 12/03/23 16:35 ALT 45 U/L (0-33) H 12/03/23 16:35 Alkaline Phosphatase 169 U/L (35-105) H 12/03/23 16:35 Creatine Kinase 61 U/L (26-192) 12/03/23 22:42 Troponin T Baseline 13 ng/L (0-10) H 12/03/23 16:35 Troponin T 120 Minute 7.20 ng/L (0-10) 12/03/23 18:10 Delta Troponin T -5.80 ABS# (0-10) L 12/03/23 18:10 Troponin T Hi Sens 6Hr 10.91 ng/L (0-10) H 12/03/23 22:42 Troponin T Hi Sens 6Hr Delta -2.09 ng/L (0-12) L 12/03/23 22:42 NT-Pro-B Natriuret Pep 715 pg/mL (0-125) H 12/03/23 16:35 Total Protein 6.8 g/dL (6.6-8.7) 12/03/23 16:35 Albumin 3.9 g/dL (3.5-5.2) 12/03/23 16:35 Globulin 2.9 g/dL (1.3-4.6) 12/03/23 16:35 Urine Color Dark yellow (Yellow) A 12/03/23 16:48 Urine Appearance Clear (CLEAR) 12/03/23 16:48 Urine pH 6.0 (5-7) 12/03/23 16:48 Ur Specific [place] 1.030 (1.005-1.030) 12/03/23 16:48 Urine Protein 2+ (Negative) A 12/03/23 16:48 Urine Glucose (UA) Trace (Normal) H 12/03/23 16:48 Urine Ketones 1+ (Negative) H 12/03/23 16:48 Urine Blood Negative (Negative) 12/03/23 16:48 Urine Nitrate Negative (Negative) 12/03/23 16:48 Urine Bilirubin Negative (Negative) 12/03/23 16:48 Urine Urobilinogen 1.0 mg/dL (Negative) 12/03/23 16:48 Ur Leukocyte Esterase 1+ (Negative) A 12/03/23 16:48 Urine RBC 5-10 /hpf (0-2) H 12/03/23 16:48 Urine WBC 10-15 /hpf (0-5) H 12/03/23 16:48 Ur Squamous Epith Cells 0-4 /hpf (0-5) H 12/03/23 16:48 Amorphous Sediment Not Reportable 12/03/23 16:48 Urine Bacteria 1+ /hpf (NONE) H 12/03/23 16:48 Hyaline Casts 15-25 /lpf H 12/03/23 16:48 Other Casts Wbc cast /lpf 12/03/23 16:48 Urine Mucus 1+ /hpf 12/03/23 16:48 Adenovirus (PCR) Not detected (NOT DETECT) 12/03/23 16:34 C. pneumoniae DNA (PCR) Not detected (NOT DETECT) 12/03/23 16:34 Coronavirus 229E (PCR) Not detected (NOT DETECT) 12/03/23 16:34 Human Metapneumovir PCR Not detected (NOT DETECT) 12/03/23 16:34 Influenza A (H1) PCR Not detected (NOT DETECT) 12/03/23 16:34 Influ A (H1/09) PCR Not detected (NOT DETECT) 12/03/23 16:34 Influenza A (H3) PCR Not detected (NOT DETECT) 12/03/23 16:34 Influenza Type A (PCR) Not detected (NOT DETECT) 12/03/23 16:34 Influenza Type B (PCR) Not detected (NOT DETECT) 12/03/23 16:34 M. pneumoniae (PCR) Not detected (NOT DETECT) 12/03/23 16:34 Parainfluenza 1 (PCR) Not detected (NOT DETECT) 12/03/23 16:34 Parainfluenza 2 (PCR) Not detected (NOT DETECT) 12/03/23 16:34 Parainfluenza 3 (PCR) Not detected (NOT DETECT) 12/03/23 16:34 Parainfluenza 4 (PCR) Not detected (NOT DETECT) 12/03/23 16:34 RSV Type A (PCR) Not detected (NOT DETECT) 12/03/23 16:34 RSV Type B (PCR) Not detected (NOT DETECT) 12/03/23 16:34 Entero/Rhino (PCR) Not detected (NOT DETECT) 12/03/23 16:34 SARS-CoV-2 (PCR) Not detected (NOT DETECT) 12/03/23 16:34 All radiology interpretation(s) finalized by discharge Discharge Plan Discharge Patient Disposition: Admitted As Inpatient Admit Provider: Rafael Leal Clinical Impression: Acute exacerbation of chronic obstructive airways disease, Cardiomegaly, Elevated transaminase level, Acute and chronic respiratory failure with hypoxia, Mass of left lung, Pericardial effusion Condition: Stable Coding Level of Care Code ED Decorating Machine Operator for Chadwick Boateng
[2023-12-03 16:19] LABS: ABG PCO2 33.4 mmHg (35-45); ABG PH Result 7.43 (7.35-7.45); Arterial Blood Gas Hematocrit 41.6 % (37-47); Base Excess ABG -1.7 mmol/L (-2.0-2.0); Blood Gas Allen Test Pos; Blood Gas Operator Identificat WALCI; Blood Gas Sample Site Radial, left; Blood Gas Sample Type Arterial; Carboxyhemoglobin 0.5 %THgb (0.4-20.1); Ionized Calcium Level - ABG 1.2 mmol/L (1.1-1.4); Oxygen Device CONT NEB; Oxygen Saturation ABG 98.4; Potassium Level - ABG 3.4 mmol/L (3.5-5.0); Total Hemoglobin 13.6 g/dL (12-16)
[2023-12-03 16:52] LABS: Basophils % 0.3 %; Eosinophils % 0.1 %; Hematocrit 43.4 % (36-47); Lymphocytes # 1.1 10^3/uL (0.8-4.8); Lymphocytes % 12.4 %; Mean Corpuscular Hemoglobin 28.3 pg (27-33); Mean Corpuscular Volume 88.4 fl (85-98); Mean Platelet Volume 9.9 fL (7.4-10.4); Monocytes # 1.1 10^3/uL (0.2-0.9); Monocytes % 12.4 %; Neutrophils # 6.51 10^3/uL (1.8-7.7); Neutrophils % 74.3 %; Nucleated Red Blood Cells % 0 %; Platelet Count 528 10^3/cmm (157-399); Red Blood Count 4.91 10^6/uL (3.85-5.65); Red Cell Distribution Width 17.1 % (12.1-15.1); White Blood Count 8.77 10^3/uL (3.29-11.43)
[2023-12-03 16:55] LABS: Charge for UA Resulting for Rev
[2023-12-03 17:03] LABS: Bilirubin Urine Negative (Negative); Blood Urine Negative (Negative); Glucose Urine UA Trace (Normal); Ketones Urine 1+ (Negative); Leukocyte Esterase Urine 1+ (Negative); Nitrate Urine Negative (Negative); Protein Urine 2+ (Negative); Urine Appearance Clear (CLEAR); Urine Color Dark Yellow (Yellow)
[2023-12-03 17:09] LABS: Troponin(5th) Baseline 13 ng/L (0-10)
--- NOTE | 2023-12-03 17:15 | ECG_ITS ---
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 Measurements Intervals [place] Rate: 130 P: 77 IL: 117 QRS: 83 QRSD: 68 T: 109 QT: 333 QTc: 491 Interpretive Statements SINUS TACHYCARDIA WITH SHORT IL INTERVAL LOW QRS VOLTAGE IN PRECORDIAL LEADS [QRS DEFLECTION < 1.0 mV IN CHEST LEADS] SEPTAL MYOCARDIAL INFARCTION , PROBABLY OLD [40+ ms Q WAVE IN V1/V2] Compared to ECG 12/03/2023 16:21:38 No significant changes Electronically Signed On 12-03-2023 18:29:15 CDT by Kory Corral M.D. [email or web address] CorporationSparkcentrallake [id number]
[2023-12-03] MEDS: levofloxacin-dextrose 5 % 750 MG/150 ML PREMIX 100 MG IV (17:16)
[2023-12-03 17:17] LABS: Alanine Aminotransferase 45 U/L (0-33); Albumin Level 3.9 g/dL (3.5-5.2); Alkaline Phosphatase 169 U/L (35-105); Anion Gap 22.6 (5-19); Aspartate Amino Transferase 49 U/L (0-32); Blood Urea Nitrogen 10 mg/dL (6-20); Calcium 9.4 mg/dL (8.5-10.5); Carbon Dioxide 23 mmol/L (22-29); Chloride 100 mmol/L (98-107); Creatinine Clr Calc Pharmacy 65.5435; Globulin 2.9 g/dL (1.3-4.6); Glomerular Filtration Rate 86.6 mL/min (90-130); Glucose 101 mg/dL (65-115); Osmolality Calculated 293 mOsm/kg (285-295); Potassium 3.6 mmol/L (3.5-5.1); Sodium 142 mmol/L (136-145); Total Bilirubin 0.9 mg/dL (0.15-1.2); Total Protein 6.8 g/dL (6.6-8.7)
--- NOTE | 2023-12-03 17:27 | USCV_ITS ---
Ade Mcpherson Age: 58 Gender: F : 1965 Exam Date: 12/03/2023 21:15 Ordering Phys: Chan Vaughan DO Technologist: SHERRIE Exam Location: [facility] [place] [facility] Indication: cardiomegaly history of COPD, long-term smoker, continues smoking. BP: 141 / 96 HR: 122 Rhythm: Sinus tachycardia Technical Quality: Adequate MEASUREMENTS (Male / Female) Normal Values 2D ECHO LV Diastolic Diameter PLAX 2.4 cm 4.2 - 5.9 / 3.9 - 5.3 cm IVS Diastolic Thickness 0.9 cm 0.6 - 1.0 / 0.6 - 0.9 cm IVS Systolic Thickness 1.2 cm LVPW Diastolic Thickness 1.2 cm 0.6 - 1.0 / 0.6 - 0.9 cm LVPW Systolic Thickness 1.2 cm LVOT Diameter 2.3 cm LV Ejection Fraction 2D Teich 24.0 % LV Ejection Fraction MOD 4C 51.7 % LV Ejection Fraction MOD 2C 56.7 % LV Ejection Fraction 2C AL 55.4 % LA Diameter 2.9 cm Aorta at Sinotubular Diameter 3.5 cm IVC Diameter 2.2 cm M-MODE LA Ao Ratio MM 1.0 AV Cusp Separation MM 1.8 cm DOPPLER AV Peak Velocity 124.0 cm/s LVOT Peak Velocity 110.0 cm/s AV Area Cont Eq vti 2.9 cm squared AV Area Cont Eq pk 3.7 cm squared MV Peak Velocity 75.0 cm/s MV Area PHT 7.6 cm squared Mitral E to A Ratio 0.8 TR Peak Velocity 219.0 cm/s TR Peak Gradient 19.2 mmHg TV Peak E Velocity 43.0 cm/s Right Atrial Pressure 3.0 mmHg Pulmonary Artery Systolic Pressu 22.2 mmHg PV Peak Velocity 116.0 cm/s FINDINGS Left Ventricle Right Ventricle Right Atrium Left Atrium Mitral Valve Aortic Valve Tricuspid Valve Pulmonic Valve Pericardium Aorta IVC CONCLUSIONS Echocardiogram performed to assess the pericardial effusion. Grossly LV systolic function is normal. RV appears to be collapsing from effusion. Signs of early tamponade noted. Large sized pericardial effusion almost 3.5-4cm in diameter. IVC is dilated with no respiratory variation Kory Corral MD (Electronically Signed) Final Date: 03 December 2023 22:52 S
[2023-12-03 17:31] LABS: Bacteria Urine 1+ /hpf; Mucus Urine 1+ /hpf; Squamous Epithelial Cell Urine 0-4 /hpf (0-5); UA Manual Slide Review YES; UA Slide Review UA Slide Review Perf
[2023-12-03 17:32] LABS: Hyaline Casts Urine 15-25 /lpf; Other Casts Urine WBC CAST /lpf
[2023-12-03 18:01] LABS: D Dimer 1.18 ug/mLFEU (0-0.59)
[2023-12-03 18:14] LABS: NT Pro B Type Natriuretic Pept 715 pg/mL (0-125)
--- NOTE | 2023-12-03 18:16 | ECG_ITS ---
[facility] Test Date: 2023-12-03 Pat Name: Ade Mcpherson Department: Room: Gender: Female Director Of Casework Services: IVET : 1965 Requested By: Chan Gregory Order Number: [id number] Lucy MD: Kory Corral M.D. Measurements Intervals [place] Rate: 124 P: 73 KS: 115 QRS: 78 QRSD: 69 T: 111 QT: 336 QTc: 484 Interpretive Statements SINUS TACHYCARDIA WITH SHORT [place] INTERVAL WITH OCCASIONAL VENTRICULAR PREMATURE COMPLEXES LOW QRS VOLTAGE IN PRECORDIAL LEADS [QRS DEFLECTION < 1.0 mV IN CHEST LEADS] SEPTAL MYOCARDIAL INFARCTION , PROBABLY OLD [40+ ms Q WAVE IN V1/V2] Compared to ECG 12/03/2023 17:02:52 Ventricular premature complex(es) now present Myocardial infarct finding still present Electronically Signed On 12-03-2023 18:30:48 CDT by Kory Corral M.D. [id number]
[2023-12-03 18:33] LABS: Reflex Lactate Order REFLEX LACTIC ORDERD
--- NOTE | 2023-12-03 18:54 | PC.NURSE ---
Assumed care from Tiffanie GLOVER at shift change.
[2023-12-03 18:56] LABS: Adenovirus Not Detected (NOT DETECT); Chlamydia Pneumoniae Not Detected (NOT DETECT); Coronavirus 229E,HKU1,NL63,OC4 Not Detected (NOT DETECT); Human Metapneumovirus Not Detected (NOT DETECT); Human Rhinovirus/Enterovirus Not Detected (NOT DETECT); Influenza A Not Detected (NOT DETECT); Influenza A H1 Not Detected (NOT DETECT); Influenza A H1-2009 Not Detected (NOT DETECT); Influenza A H3 Not Detected (NOT DETECT); Influenza B Not Detected (NOT DETECT); Mycoplasma Pneumoniae Not Detected (NOT DETECT); Parainfluenza Virus Type 1 Not Detected (NOT DETECT); Parainfluenza Virus Type 2 Not Detected (NOT DETECT); Parainfluenza Virus Type 3 Not Detected (NOT DETECT); Parainfluenza Virus Type 4 Not Detected (NOT DETECT); Respiratory Syncytial Virus A Not Detected (NOT DETECT); Respiratory Syncytial Virus B Not Detected (NOT DETECT); SARS-COV-2 Not Detected (NOT DETECT)
[2023-12-03 20:09] LABS: ABG PCO2 24.6 mmHg (35-45); ABG PH Result 7.45 (7.35-7.45); Base Excess ABG -5.2 mmol/L (-2.0-2.0); Blood Gas Allen Test Pos; Blood Gas Operator Identificat CL; Blood Gas Sample Site Radial, left; Blood Gas Sample Type Arterial; Carboxyhemoglobin 0.3 %THgb (0.4-20.1); HCO3 ABG 17.1 mmol/L (22-26); HGB O2 Sat 97.9 % (95-100); Ionized Calcium Level - ABG 1.1 mmol/L (1.1-1.4); Methemoglobin 1.2 % (0.4-1.5); Oxygen Device BIPAP; Oxygen Saturation ABG 99.3; Potassium Level - ABG 4.2 mmol/L (3.5-5.0); Total Hemoglobin 13.4 g/dL (12-16)
[2023-12-03 20:10] LABS: Alveolar-Arterial Oxygen Gradi 3.1 mmHg (5-10); PO2 FiO2 Ratio Arterial Blood 520
--- NOTE | 2023-12-03 20:33 | PC.NURSE ---
Patient initially refused ABG from respiratory, stating that it hurt, that she wanted to take her bipap off, and she was upset because the nurses keep leaving me in the room. This nurse educated patient that bipap was necessary in order to keep O2 saturations up, and that nursing staff were rounding whenever patient used call button or needed anything. Patient then consented for RT to stick for ABG and apologized to nursing staff, stating I am not normally this angry.
[2023-12-03] MEDS: morphine 4 mg/mL SDV 1 mL 2 MG IVP (20:55)
[2023-12-03 20:57] LABS: Lactic Acid level (Lactate) 3.2 mmol/L (0.5-2.2)
[2023-12-03] MEDS: ondansetron 2 mg/ML SDV 2 mL 4 MG IVP (20:58)
--- NOTE | 2023-12-03 22:09 | ECG_ITS ---
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 Measurements Intervals [place] Rate: 121 P: 74 [place]: 110 QRS: 88 QRSD: 57 T: 132 QT: 309 QTc: 439 Interpretive Statements SINUS TACHYCARDIA WITH SHORT [place] INTERVAL LOW QRS VOLTAGE [QRS DEFLECTION < 0.5/1.0 mV IN LIMB/CHEST LEADS] MINIMAL ST DEPRESSION [0.025+ mV ST DEPRESSION] Compared to ECG 12/03/2023 18:16:07 ST (T wave) deviation now present Myocardial infarct finding no longer present Electronically Signed On 12-03-2023 23:24:02 CDT by Kory Corral M.D. [id number]
--- NOTE | 2023-12-03 22:39 | P.CONIM_ITS ---
Providers/Reason For Consult 2 Consulting Physician/Specialty*: Kory Corral MD/ Interventional cardiology Reason for Consult*: Early tamponade/large pericardial effusion Requesting Physician: Dr Zaragoza History of Present Illness History of Present Illness Ade Mcpherson is a 58 year old female with past medical history of COPD, lung mass was presented to hospital with several days of worsening shortness of breath. Now she is requiring BiPAP today in the ER. Was noted to have pericardial effusion before. At that time it was moderate in size. Also was recently found to have lung mass. Echo was ordered by ER that is showing large sized pericardial effusion with RV collapse. She is tachycardic into 120s. Blood pressure is stable at this time. Patient also is complaining of shortness of breath. Review of Systems 2 Const: Reports: chills and change in weight Eyes: Denies: change in vision ENMT: Denies: throat pain Card: Reports: chest pain Resp: Reports: dyspnea GI: Denies: abdominal pain : Denies: flank pain Musc: Denies: neck pain Medications/Allergies Home Medications Medication Instructions Recorded Confirmed Last Taken Type amlodipine 5 mg tablet (Norvasc) 5 mg PO BID #60 tabs 09/07/23 10/26/23 Unknown Rx clopidogrel 75 mg tablet 75 mg PO DAILY #21 tabs 09/07/23 10/26/23 Unknown Rx albuterol sulfate 90 mcg/actuation 2 puff inhalation Q6H PRN 10/26/23 10/26/23 Unknown History aerosol inhaler (Ventolin HFA) Shortness Of Breath atorvastatin 40 mg tablet 40 mg PO BEDTIME 10/26/23 10/26/23 Unknown History ipratropium 0.5 mg-albuterol 3 mg 3 ml inhalation Q4H PRN Shortness 10/26/23 10/26/23 Unknown History (2.5 mg base)/3 mL nebulization Of Breath soln losartan 50 mg tablet 50 mg PO DAILY 10/26/23 10/26/23 Unknown History umeclidinium 62.5 mcg-vilanterol 1 inh inhalation DAILY 10/26/23 10/26/23 Unknown History 25 mcg/actuation powdr for inhalation (Anoro Ellipta) varenicline 1 mg tablet (Chantix) 1 mg PO BID 10/26/23 10/26/23 Unknown History metoprolol tartrate 25 mg tablet 25 mg PO BID@0900,2100 #60 tabs 10/28/23 Unknown Rx pantoprazole 40 mg tablet,delayed 40 mg PO DAILY #30 tabs 10/28/23 Unknown Rx release (Protonix) Allergies Allergy/AdvReac Type Severity Reaction Status Date / Time No Known Allergies Allergy Verified 12/03/23 16:16 PFSH Acute 2 PFSH: Medical History HTN (hypertension) with goal to be determined COPD (chronic obstructive pulmonary disease) Hirsutism Hypertension Alcohol intoxication Brain TIA Vitals/I&O/Wt Last Vital Signs Temp 98.4 F 12/03/23 16:07 Pulse 125 H 12/03/23 22:25 Resp 35 H 12/03/23 22:25 BP 154/106 12/03/23 22:25 Pulse Ox 96 12/03/23 22:25 O2 Del Method BiPAP 12/03/23 21:01 O2 Flow Rate 7 12/03/23 16:07 FiO2 30 12/03/23 18:23 Weight last 48 hrs Weight 102 lb Physical Exam 2 Narrative: GENERAL: Patient is alert, awake and oriented x3. On BiPAP [] NECK: No jugular vein distension. [] HEENT: No cyanosis. No icterus. No pallor. [] HEART: Tachycardic LUNGS: Clear to auscultate bilaterally. [] CENTRAL NERVOUS SYSTEM: Grossly nonfocal. [] EXTREMITIES: Lower extremities with 1+ edema bilaterally. Data 12/03/23 16:35 12/03/23 16:35 Micro: Microbiology 12/03/23 16:40 Blood Culture - Preliminary Blood SPECIMEN COLLECTED 12/03/23 16:35 Blood Culture - Preliminary Blood SPECIMEN COLLECTED A&P Assessment and plan (1) Pericardial effusion: (2) COPD (chronic obstructive pulmonary disease): Plan Patient has recently discovered lung mass. Has presented with worsening shortness of breath. Echo is showing large sized pericardial effusion with signs of early tamponade and RV collapse. She is tachycardic with sinus tachycardia and heart rates in 120s. Blood pressure is stable at this time. Plan for pericardiocentesis. Risks and benefits of the procedure have been discussed. She understands these and wants to proceed. We will send pericardial fluid for analysis Medicine team will admit patient to ICU Thank you for involving us with care of this patient. We will continue to follow. Please call with questions. Coding Level of Care Code Acute Code for Chg Fwd Diagnoses Pericardial effusion I31.39 COPD (chronic obstructive pulmonary disease) J44.9
[2023-12-03 23:02] LABS: Troponin 5 6HR 10.91 ng/L (0-10)
[2023-12-03 23:03] LABS: Troponin 5 6HR Delta -2.09 ng/L (0-12)
--- NOTE | 2023-12-03 23:06 | XACV_ITS ---
Exam Room: [facility] Ht: 155 cm Wt: 50 kg BSA: 1.47 m2 Gender: Female : 1965 Any Known Allergies: No known allergies Exam Priority: Routine Procedure(s): Procedure Description: Miscellaneous Procedure Description: Pericardiocentesis Diagnostic Cath Status: Emergency PCI Status: Emergency Interventional Findings * INDICATION: Early tamponade/large pericardial effusion. * Pericardiocentesis/ pericardial drain placement: Once patient was draped, she had brief run of ventricular tachycardia that resolved spontaneously within a few seconds. She did not lose consciousness. We used lidocaine in substernal location. Under echocardiographic guidance, pericardiocentesis needle was advanced into pericardial space. Through the needle J-wire was advanced and after dilation, pericardial drain was put in place. We drained total of 750 cc of serosanguineous fluid. Patient's heart rate improved significantly. Fluid was sent for analysis. Patient left the [facility] in a stable condition.effusion. Conclusions 1. Successful pericardiocentesis and pericardial drain placement. Recommendations * ICU transfer. * Pericardial effusion analysis sent. * Follow up echocardiogram. Pressures Phase:Rest AO : / ( -40 ) @ 7:25:53 PM / ( -40 ) @ 7:25:53 PM / ( -41 ) @ 7:25:53 PM Clinical Evaluation EBL: 5mL-10mL Procedural Details Procedure Consent Obtained. Pre-Procedure Time Out. Identified patient by full name and date of as verbalized by the patient/guarantor. Does the consent match the physician's order: Yes. Accurate & Complete Informed Consent: Yes. Inpatient/Outpatient History & Physical on Chart: Yes. If H&P is completed, is and addenduem needed: No; If yes, is the addendum complete: N/A. Visualize and Verify Site with Patient/Guarantor: N/A. Relevant Radiology Images available: N/A. The risks, benefits, and alternatives of sedation and/or procedure were discussed by physician. The patient agrees to continue. Procedure started. A 18 gauge IV was started in the left wrist using aseptic technique. IV Fluids: 0.9% NaCl at KVO. 0 mL infused prior to manager cardiac cath. Baseline sample Acquired. HR: 122 BPM. Physician arrived. Patient arrived to [facility] on a Bipap. Physician scrubbed in. Immediate Pre-Procedure Time Out. Correct Patient: Yes; Correct Procedure: Yes; Correct Site: Yes; Correct Patient Position: Yes; Correct Supplies: Yes; Dried Flammable Prep: Yes; Blood Products Available: N/A;. Lidocaine 1% infiltrated. Ultrasound being used for guidance. Pericardial access obtained. Wire inserted. Wire out. Fluid aspirated from the pericardial space. Wire inserted. Pigtail catheter inserted OTW. Catheter out OTW. A 5 lao Angled Pig catheter in over wire. Wire out. Fluid aspirated from the pericardial space. Fluid aspirated: 707mL. Catheter sutured in. Physician scrubbed out. Dressing applied. PERRLA. Strong, equal hand surveyor rod helper bilaterally. No VTE prophylaxis required. Medication's Wasted: Other = Fentanyl 75mcg Versed 1 mg. Complications: None. Estimated blood loss: 5mL-10mL. Responsiveness - Normal response to verbal stimuli; alert and oriented, PERRLA. Airway - Unaffected, no intervention required; spontaneous ventilation. Circulation: W/N/L, pulses unchanged. Nausea/Vomiting: No. Procedure completed. Patient transferred by bed to ICU. Vital chart was stopped. Procedure Medications Start: 11:34 PM Stop: 11:34 PM Medication: Versed Amount: 2 mg Route: I.V. Start: 11:45 PM Stop: 11:45 PM Medication: Fentanyl Amount: 25 mcg Route: I.V. I, the attending physician, have reviewed and verified all procedure medications. Yes, all medications given per verbal order History/Risk Factors Hypertension: No Dyslipidemia: No Peripheral Arterial Disease (PAD): No Myocardial Infarction (NV): No Obesity: No Renal Disease: No Prior Interventions PCI: No CABG: No Valve Surgery: No Report Signatures Finalized by Kory Corral MD on 12/06/2023 12:12 PM
--- NOTE | 2023-12-03 23:14 | P.HP_ITS ---
Providers/Chief Complaint 2 Admitting Physician: Rafael Leal Chief Complaint: resp distress History of Present Illness 58-year-old lady with recent admission here and discharged on 10/27 after treatment after intoxication, with finding of pneumonia, but CTA performed after abnormal D-dimer also revealed a right lung mass with suspected lymphangitic spread, possible adrenal mets, enlarged lymph nodes in the mediastinum for which she was being referred for additional follow-up for biopsy and diagnosis at [facility] in [place]. She was also noted to have emphysema with history of COPD, blood cultures grew coagulase-negative staph thought to be contamination. She was discharged with 5 days of Levaquin to complete for pneumonia. Was counseled on smoking cessation, alcohol avoidance. Incidentally also seen TEST DRIVER territory infarct on head CT at discharge continued on Plavix and statin. Echocardiogram performed at that time showed preserved EF, mild MR, small sized pericardial effusion. She returned to emergency department tonight due to dyspnea, productive cough, reports with yellow sputum, also complaining of chest pain. In the ER with diminished air entry, requiring BiPAP. With sinus tachycardia, tachypnea, dyspnea. Started on BiPAP support. Chest x-ray with finding of interval widening of cardiac silhouette possibly presenting worsening pericardial effusion or cardiomegaly. COPD with chronic appearing right greater than left lower lung zone reticulation. D-dimer lower than prior admission 1.18, previously 8. Troponin with mild elevation at baseline. NT proBNP 715. UA with 10-15 WBC, 1+ leukocyte Estrace, 1+ bacteria, 1+ ketones, 15-25 hyaline casts, 2+ protein. Stat echocardiogram is performed in ER with finding of large pericardial effusion with signs of early tamponade. Review of Systems 2 Const: Reports: fatigue; Denies: fever(s), chills, body aches or malaise ENMT: Denies: throat pain Card: Reports: chest pain and dyspnea on exertion; Denies: edema or pre-syncope Resp: Reports: dyspnea, productive cough and change in phlegm color; Denies: hemoptysis GI: Denies: abdominal pain, nausea, vomiting, diarrhea, constipation, hematochezia or melena : Denies: flank pain, urinary frequency or hematuria Musc: Denies: back pain, joint swelling or joint redness Skin/Breast: Denies: rash or new lesions Neuro: Denies: headache(s) Medications/Allergies Home Medications Medication Instructions Recorded Confirmed Last Taken Type amlodipine 5 mg tablet (Norvasc) 5 mg PO BID #60 tabs 09/07/23 10/26/23 Unknown Rx clopidogrel 75 mg tablet 75 mg PO DAILY #21 tabs 09/07/23 10/26/23 Unknown Rx albuterol sulfate 90 mcg/actuation 2 puff inhalation Q6H PRN 10/26/23 10/26/23 Unknown History aerosol inhaler (Ventolin HFA) Shortness Of Breath atorvastatin 40 mg tablet 40 mg PO BEDTIME 10/26/23 10/26/23 Unknown History ipratropium 0.5 mg-albuterol 3 mg 3 ml inhalation Q4H PRN Shortness 10/26/23 10/26/23 Unknown History (2.5 mg base)/3 mL nebulization Of Breath soln losartan 50 mg tablet 50 mg PO DAILY 10/26/23 10/26/23 Unknown History umeclidinium 62.5 mcg-vilanterol 1 inh inhalation DAILY 10/26/23 10/26/23 Unknown History 25 mcg/actuation powdr for inhalation (Anoro Ellipta) varenicline 1 mg tablet (Chantix) 1 mg PO BID 10/26/23 10/26/23 Unknown History metoprolol tartrate 25 mg tablet 25 mg PO BID@0900,2100 #60 tabs 10/28/23 Unknown Rx pantoprazole 40 mg tablet,delayed 40 mg PO DAILY #30 tabs 10/28/23 Unknown Rx release (Protonix) Allergies Allergy/AdvReac Type Severity Reaction Status Date / Time No Known Allergies Allergy Verified 12/03/23 16:16 PFSH Acute 2 PFSH: Medical History HTN (hypertension) with goal to be determined COPD (chronic obstructive pulmonary disease) Hirsutism Hypertension Alcohol intoxication Brain TIA Social History (Updated 12/03/23 @ 23:42 by Rafael Leal MD) Smoking and tobacco/nicotine status: current every day tobacco/nicotine user cigarettes Alcohol intake: former Former alcohol use details: States she is quit, has not had any alcohol since last admission. Substance/Drug Use: current Substance/Drug use frequency: other Substance/Drug use type: Marijuana Other substance/drug use details: Rare Vitals/I&O/Wt Last Vital Signs Temp 98.4 F 12/03/23 16:07 Pulse 126 H 12/03/23 23:03 Resp 35 H 12/03/23 22:25 BP 133/102 12/03/23 23:03 Pulse Ox 95 12/03/23 23:03 O2 Del Method BiPAP 12/03/23 21:01 O2 Flow Rate 7 12/03/23 16:07 FiO2 30 12/03/23 18:23 Weight last 48 hrs Weight 46.266 kg Physical Exam 2 Narrative: NIPPV. Const: COMMON NORMALS: patient oriented x3 and alert GENERAL APPEARANCE: c ooperative ORIENTATION/CONSCIOUSNESS: Yes awake HENMT: COMMON NORMALS: oropharynx normal Neck/C-Spine: COMMON NORMALS: no JVD Resp: AUSCULTATION: diminished lung sounds Cardio: COMMON NORMALS: no JVD, regular rhythm, S1 normal heart sound present, S2 normal heart sound present and No murmurs present (Cardio) RATE: t achycardic RHYTHM: regular rhythm HEART SOUNDS: S1 normal heart sound present and S2 normal heart sound present GI: COMMON NORMALS: Normal to inspection, nondistended, normoactive bowel sounds present, Soft to palpation and non-tender PALPATION: Yes Soft to palpation Extremity: COMMON NORMALS: no joint enlargement and no pedal edema Neuro: COMMON NORMALS: patient oriented x3 and moves all extremities S ENSORIUM/ORIENTATION: Yes alert Skin: COMMON NORMALS: no rashes or lesions noted GENERAL SKIN EXAM: no rashes or lesions noted OTHER: Hirsutism Data 12/03/23 16:35 12/03/23 16:35 Micro: Microbiology 12/03/23 16:40 Blood Culture - Preliminary Blood SPECIMEN COLLECTED 12/03/23 16:35 Blood Culture - Preliminary Blood SPECIMEN COLLECTED A&P Assessment and plan (1) Pericardial effusion: Presented with fatigability, dyspnea on exertion, with noted tachycardia, with widened mediastinum on chest x-ray, stat echocardiogram with large pericardial effusion with early tamponade. Reviewed vitals, CBC, D-dimer, ABG, CMP, lactic acid, troponin, NT proBNP, UA, requested respiratory viral panel, EKG, on my interpretation with low voltage, T wave flattening and inversions in 2, aVL, precordial leads, pending official read. ER provider note, discussed with ER provider, discussed with drum cleaner. Discussed with her. There was some initial discussion and consideration of transfer, however, as per discussion with cardiology, ER physician, transfer at current time would be associated with significant risk, she understands that there is no industrial arts public [employer] teacher/critical care on-call currently, possibly may be available for additional assessment tomorrow for the pulmonary issues, but she is agreeable to seek treatment for the more urgent cardiac problem at the moment. She has discussed with cardiology regarding urgently going to [facility]ostat[facility] for drain placement. She understands that pericardial effusion may be related to malignancy. Understands that she potentially may have metastatic malignancy until proven otherwise, although may be another etiology, at current time she wants to pursue aggressive treatment and diagnostic measures until she can get a better idea of her condition, further discussed with specialist. She is okay with seeing pulmonology here if available, otherwise transfer out once she is ready if still needed. Discussed with cardiology, requesting additional studies for pericardial effusion, including analysis, Gram stain culture, fungal culture, AFB, ADA, cytology. Per discussion with cardiology, continue Plavix, may anticipate hemorrhagic fusion, lower dose Lovenox DVT prophylaxis given increased risk of VTE. NPO. Subsequent admission to ICU. Reid catheter for accurate DIMITRI's and as she is currently not mobile. Blood cultures have been collected. Underwent pericardiocentesis, drain left in place, 750 cc serosanguineous fluid drained. Sent for analysis as above. Brief self, DVT just prior to procedure, resolved. Discussed with cardiology. Follow-up limited echo requested. (2) Acute exacerbation of chronic obstructive airways disease: With dyspnea, productive cough with yellow sputum, with reported hypoxia, with pO2 121 on 7 L, with underlying suspected lung malignancy, last admission with elevated D-dimer, negative CTA for PE, decreased air entry, productive cough, dyspnea, hypoxia, with severe exacerbation of COPD. Possible contribution of component of possibly lymphangitic malignancy spread. Last admission also treated for pneumonia. Reviewed vitals, CBC, D-dimer, ABG, troponin, NT proBNP, respiratory viral panel requested, reviewed, negative. Reviewed chest x-ray. Obtain sputum culture, MRSA PCR. Additional treatment of large pericardial effusion with early tamponade as above. Continue empiric antibiotic with Levaquin, DuoNeb scheduled and as needed treatments. Solu-Medrol. Oxygen support, target saturation 88-92%. Wean off as tolerating. Avoid hyperoxia. RT to assess and treat. (3) Acute and chronic respiratory failure with hypoxia: As above. Additional question of possible lymphangitic spread of suspected metastatic malignancy newly identified during hospitalization, not yet diagnosed. See below. (4) Mass of left lung: Pulmonology assessment would be useful if available to provide further insight into the hypoxic respiratory failure, possible contribution of lymphangitic spread of suspected metastatic malignancy, and to aid in further goals of care discussions with patient. Suspected metastatic malignancy with right lung mass, mediastinal lymph nodes, possible metastatic disease to adrenal gland, possible lymphangitic spread in the right lung. Requesting cytology from pericardial effusion with possible malignant effusion. Please follow-up. However industrial arts public school teacher does not take call, but I am told she is here as per the schedule tomorrow. Patient understands the limitation, and would also be okay with transfer if needed once she is more stable from cardiac perspective. (5) Elevated transaminase level: Incidentally noted elevated transaminases. Hold statin for now. Check CK. Possibly secondary to dehydration. Noted hyaline casts in urine although does not appear dehydrated at the moment. Will reassess liver parameters. Possibly congestive hepatopathy with early tamponade, engorged IVC. (6) D-dimer, elevated: Possibly secondary to malignancy, CTA negative for PE with D-dimer of 8 last admission,2-day D-dimers lower at 1.18. Will obtain lower extremity duplex, but suspect this may be more so due to her pericardial effusion, suspected malignancy. VTE prophylaxis with Lovenox. (7) Alcoholism: Encourage cessation. She states was not had any alcohol since last admission. (8) Smoking: Encourage cessation, discussed nicotine replacement, patches. She is agreeable. Requested. (9) UTI (urinary tract infection): On Levaquin as above. Urine culture requested. She says she has been having difficulty with ambulating at the place she is staying at currently and has been holding in urine , feels that may have contributed to UTI. (10) Goals of care, counseling/discussion: Discussed with her concern for metastatic malignancy until proven otherwise, possibly in advance stages in case of malignant effusion, superimposed on advanced emphysema/COPD, she would like to pursue further diagnosis and pursue treatment at current time further urgent matter of early tamponade, would like to further discuss with specialist with regards to her condition and further options. In case of cardiopulmonary arrest she would want attempted resuscitation at this point including CPR and intubation. In case she could not make decisions for herself, she names her friend Francia Roe of [place], [place] at [phone] as surrogate decision-maker. Plan HTN: Monitor blood pressures, hold losartan, amlodipine for now. Resumed on her usual dose metoprolol. History of CVA: Continue Plavix, statin. Attestations 2 Medical Necessity Statement*: Admission of over 2 midnights anticipated for assessment management of large pericardial effusion with early tamponade, COPD exacerbation, acute hypoxic respiratory failure, with suspected underlying malignancy, possible malignant effusion, right lung mass with metastatic suspected disease, possible lymphangitic spread, additional comorbidities as above. Coding Level of Care Code Critical Care >/= 30 minutes Critical care time (in minutes): 40 The high probability of a clinically significant, sudden or life threatening deterioration, as referenced in this documentation, required my full and direct attention, intervention and personal management. The critical care time shown is in addition to time spent performing any reported separately billable procedures and includes the following: [x] Data and vital sign review and interpretation [x ] Patient assessment, examination and intervention [x] Medication orders and management [x] Patient/Family updates as able [x] Care Coordination and Documentation. Diagnoses Pericardial effusion I31.39 Acute exacerbation of chronic obstructive airways disease J44.1 Acute and chronic respiratory failure with hypoxia J96.21 Mass of left lung R91.8 Elevated transaminase level R74.01 D-dimer, elevated R79.89 Alcoholism F10.20 Smoking F17.200 UTI (urinary tract infection) N39.0 Goals of care, counseling/discussion Z71.89
--- NOTE | 2023-12-03 23:24 | PC.NURSE ---
Patient taken to carpenter labor supervisor by Greg Gill; report given at bedside, all questions and concerns addressed at bedside.
--- NOTE | 2023-12-03 23:26 | W.PM.OPSUD ---
Surgery/Procedure H&P Update DATE OF PROCEDURE: December 03, 2023 DATE H&P PERFORMED: 12/03/23 H&P UPDATE INFORMATION: I have reviewed H&P completed within last 30 days, I have examined patient prior to procedure and No changes to prior documentation PREOP DIAGNOSIS: Early tamponade/ Large pericardial effusion PRIMARY INDICATION FOR PROCEDURE: Early tamponade/ Large pericardial effusion PLANNED PROCEDURE: Pericardiocentesis with pericardial drain placement PATIENT REASSESSED PRIOR TO SEDATION, WITH NO CHANGE NOTED: Yes PHYSICAL EXAM: alert and oriented x 3 OTHER PERTINENT EXAM FINDINGS: Diminished air entry bilaterally. Tachycardia AIRWAY EVAL/ANESTHESIA PLAN: normal airway, ASA III, Local Anesthesia, Risks, benefits & alternatives of sedation and/or procedure discussed and Patient agrees to continue as planned ADDITIONAL INFORMATION: Moderate sedation
--- NOTE | 2023-12-03 23:34 | PC.NURSE ---
Report called to ICU at [phone]
[2023-12-04] VITALS (68 sets, daily range): BP systolic 96–163; BP diastolic 55–111; PULSE 86–128; RESP 6–33; TEMP 35.7–36.8; O2SAT 30–97; BMI 21.9; BMI 21.7
[2023-12-04 00:03] LABS: Cyto Order Verification No Order
--- NOTE | 2023-12-04 00:22 | P.PCN_ITS ---
Procedure Note: Date of procedure: 12/04/23 Pre-procedure diagnosis: Early tamponade/ large pericardial effusion Post-procedure diagnosis: other (Small pericardial effusion/ Pericardial drain in place) Procedure: Pericardiocentesis/ pericardial drain placement: Once patient was draped, she had brief run of ventricular tachycardia that resolved spontaneously within a few seconds. She did not lose consciousness. We used lidocaine and substernal location. Under echocardiographic guidance, pericardiocentesis needle was advanced into pericardial space. Through the needle J-wire was advanced and after dilation, pericardial drain was put in place. We drained total of 750 cc of serosanguineous fluid. Patient's heart rate improved significantly. Fluid was sent for analysis. Patient left the [facility] in a stable condition. Performing Provider: Kory Corral Complications: None Pathology: other (Pericardial fluid sent for analysis) Condition: stable Disposition: ICU Coding Level of Care Code Acute Code for [facility]
--- NOTE | 2023-12-04 00:44 | USCV_ITS ---
Ade Mcpherson Age: 58 Gender: F : 1965 Exam Date: 12/04/2023 01:20 Ordering Phys: Rafael Leal MD Technologist: SHERRIE Exam Location: [facility] [place] Indication: swelling HISTORY: swelling PROCEDURES: Venous duplex imaging was performed in bilateral lower extremities. The following venous structures were evaluated: common femoral vein, profunda vein, proximal portion of the greater saphenous vein, superficial femoral vein, and the popliteal vein. In addition, the posterior tibial veins were evaluated. FINDINGS: Normal 2-D Doppler and augmentation and compressibility throughout the lower extremity venous structures. Additional imaging through the proximal calf veins also reveals no thrombus. Limited evaluation of the greater saphenous vein is patent with no thrombus. CONCLUSIONS No DVT bilateral lower extremities. Dr. Katie Banks DO (Electronically Signed) Final Date: 04 December 2023 07:41 S
--- NOTE | 2023-12-04 00:44 | USCV_ITS ---
Ade Mcpherson Age: 58 Gender: F : 1965 Exam Date: 12/04/2023 01:42 Ordering Phys: Rafael Leal MD Technologist: SHERRIE Exam Location: [facility] [place] Indication: limited echo s/p pericardiocentesis BP: 151 / 113 HR: 88 Rhythm: Sinus Technical Quality: Adequate MEASUREMENTS (Male / Female) Normal Values 2D ECHO LV Diastolic Diameter PLAX 3.2 cm 4.2 - 5.9 / 3.9 - 5.3 cm IVS Diastolic Thickness 1.1 cm 0.6 - 1.0 / 0.6 - 0.9 cm IVS Systolic Thickness 1.8 cm LVPW Diastolic Thickness 1.1 cm 0.6 - 1.0 / 0.6 - 0.9 cm LVPW Systolic Thickness 1.2 cm LVOT Diameter 1.9 cm LV Ejection Fraction 2D Teich 59.0 % LV Ejection Fraction MOD 4C 70.3 % LV Ejection Fraction MOD 2C 59.6 % LV Ejection Fraction 2C AL 58.7 % LA Diameter 2.1 cm Aorta at Sinotubular Diameter 2.4 cm IVC Diameter 2.1 cm M-MODE LA Ao Ratio MM 0.7 AV Cusp Separation MM 1.7 cm DOPPLER AV Peak Velocity 92.0 cm/s LVOT Peak Velocity 62.0 cm/s AV Area Cont Eq vti 1.9 cm squared AV Area Cont Eq pk 1.9 cm squared TV Peak Velocity 245.0 cm/s TR Peak Velocity 245.0 cm/s TR Peak Gradient 24.0 mmHg TV Peak E Velocity 52.0 cm/s Right Atrial Pressure 3.0 mmHg Pulmonary Artery Systolic Pressu 27.0 mmHg PV Peak Velocity 84.0 cm/s FINDINGS Left Ventricle Right Ventricle Right Atrium Left Atrium Mitral Valve Aortic Valve Tricuspid Valve Pulmonic Valve Pericardium Aorta IVC CONCLUSIONS Limited echocardiogram performed to assess pericardial effusion post pericardiocentesis. LV systolic function is normal. Minimal pericardial effusion seen. IVC is normal in size and collapses with respiration Compared to pre procedure echocardiogram, significant improvement in effusion volume seen (only minimal amount seen) Kory Corral MD (Electronically Signed) Final Date: 05 December 2023 10:21 S
[2023-12-04 01:05] LABS: Creatine Phosphokinase 61 U/L (26-192)
[2023-12-04] MEDS: methylPREDNISolone sod succ 125 mg/2 mL INJ 60 MG IVP ×4 (01:22→18:55)
[2023-12-04] MEDS: nicotine 21 mg Patch 1 PATCH TRANSDERMA ×2 (01:22→20:51)
[2023-12-04] MEDS: metoprolol tartrate 25 mg Tablet PO ×3 (01:22→20:42)
[2023-12-04] MEDS: enoxaparin 40 mg/0.4 mL Syringe SUBCUT (01:28)
--- NOTE | 2023-12-04 02:23 | ECG_ITS ---
[facility] Test Date: 2023-12-04 Pat Name: Ade Mcpherson Department: Room: [facility] Gender: Female Bridge Builder: : 1965 Requested By: Rafael Leal Order Number: [id number] Lucy MD: Kory Corral M.D. Measurements Intervals Ryan Rate: 93 P: 74 IL: 132 QRS: 73 QRSD: 78 T: 101 QT: 360 QTc: 448 Interpretive Statements SINUS RHYTHM SEPTAL MYOCARDIAL INFARCTION , PROBABLY OLD [40+ ms Q WAVE IN V1/V2] Compared to ECG 12/03/2023 22:21:43 Myocardial infarct finding now present Sinus tachycardia no longer present Short IL interval no longer present ST (T wave) deviation no longer present Electronically Signed On 12-04-2023 11:28:43 CDT by Kory Corral M.D. [id number]
[2023-12-04] MEDS: ipratropium-albuterol 3 mL Neb INHALATION ×4 (02:44→20:09)
[2023-12-04] MEDS: morphine 4 mg/mL SDV 1 mL 2 MG IVP ×5 (03:03→22:16)
[2023-12-04 03:15] LABS: Mononuclear #, Pericardial Fl 0.434 10^3/uL; Polynuclear # Cells, Peri 0.836 10^3/uL; RBC Pericardial Fluid 34 10^3/uL; WBC Pericardial Fluid 1270 /uL
[2023-12-04 03:16] LABS: Pericardial Fluid Color Red (Pale Yellow)
[2023-12-04 03:18] LABS: Pericardial Fluid Appearance Turbid (Clear)
[2023-12-04 04:53] LABS: Adenovirus Not Detected (NOT DETECT); Chlamydia Pneumoniae Not Detected (NOT DETECT); Coronavirus 229E,HKU1,NL63,OC4 Not Detected (NOT DETECT); Human Metapneumovirus Not Detected (NOT DETECT); Human Rhinovirus/Enterovirus Not Detected (NOT DETECT); Influenza A Not Detected (NOT DETECT); Influenza A H1 Not Detected (NOT DETECT); Influenza A H1-2009 Not Detected (NOT DETECT); Influenza A H3 Not Detected (NOT DETECT); Influenza B Not Detected (NOT DETECT); Mycoplasma Pneumoniae Not Detected (NOT DETECT); Parainfluenza Virus Type 1 Not Detected (NOT DETECT); Parainfluenza Virus Type 2 Not Detected (NOT DETECT); Parainfluenza Virus Type 3 Not Detected (NOT DETECT); Parainfluenza Virus Type 4 Not Detected (NOT DETECT); Respiratory Syncytial Virus A Not Detected (NOT DETECT); Respiratory Syncytial Virus B Not Detected (NOT DETECT); SARS-COV-2 Not Detected (NOT DETECT)
[2023-12-04] MEDS: clopidogrel 75 mg Tablet PO (08:19)
[2023-12-04] MEDS: pantoprazole DR 40 mg Tablet PO (08:19)
--- NOTE | 2023-12-04 08:49 | PM.PN ---
Subjective Subjective: Patient had pericardiocentesis performed last night. 750 cc of serosanguineous pericardial fluid drained. Drain has additional 50 to 70 cc of fluid overnight. Feeling better today. Vitals/I&O/Wt Last Vital Signs Temp 98.2 F 12/04/23 04:00 Pulse 105 H 12/04/23 07:48 Resp 26 H 12/04/23 07:58 BP 131/99 12/04/23 04:30 Pulse Ox 92 12/04/23 07:58 O2 Del Method Oxymask 12/04/23 07:40 O2 Flow Rate 3 12/04/23 07:40 FiO2 30 12/04/23 04:30 12/03/23 12/04/23 12/04/23 22:59 06:59 14:59 Intake Total 2016. / Output Total 50 / 50 Balance 1966. / Weight last 48 hrs Weight 103 lb 9.876 oz Weight 103 lb 9.876 oz Weight 104 lb 11.513 oz Weight 102 lb Physical Exam Narrative: GENERAL: Patient is alert, awake and oriented x3. On BiPAP [] NECK: No jugular vein distension. [] HEENT: No cyanosis. No icterus. No pallor. [] HEART: Tachycardic LUNGS: Clear to auscultate bilaterally. [] CENTRAL NERVOUS SYSTEM: Grossly nonfocal. [] EXTREMITIES: Lower extremities with 1+ edema bilaterally. Data 12/05/23 02:34 12/05/23 02:34 Micro: Microbiology 12/03/23 16:40 Blood Culture - Preliminary Blood SPECIMEN COLLECTED 12/03/23 16:35 Blood Culture - Preliminary Blood SPECIMEN COLLECTED A&P Assessment and plan (1) Pericardial effusion: (2) COPD (chronic obstructive pulmonary disease): Plan Patient had successful pericardiocentesis performed last night. Drain is still in place. Had additional output overnight. We will keep the drain in place for today and possible removal tomorrow. Follow-up echocardiogram post drain did not show any significant pericardial fluid. Lung mass evaluation per primary team Thank you for involving us with care of this patient. We will continue to follow. Please call with questions. Attestations Medical Necessity Statement*: Care expected to cross 2 midnights. Coding Level of Care Code Acute Code for [facility] Fwd Diagnoses Pericardial effusion I31.39 COPD (chronic obstructive pulmonary disease) J44.9
--- NOTE | 2023-12-04 10:32 | PM.PN ---
Subjective Subjective: No active chest pain or shortness of breath Tachycardia improved Hemodynamically stable 100 mL in the bloody/serosanguineous fluid in the bag Ms. Mcpherson is stating that right now she does not have any place to live, she would pursue assisted living facility, [facility] is aware She is stating that she is estranged from her family, does not have any medical DPOA, She has 2 sisters for sister lives in [place] and other 1 in [place] Her mother has dementia I have counseled patient to point medical DPOA in case she gets confused and requires surrogate decision-maker patient is full code I have told her that her friend is in [place], that might not be a feasible option because she still has 2 sisters, nephew, mother At this point there is no acute indication to get her transferred for bronchoscopy and biopsy which can be done outpatient Vitals/I&O/Wt Last Vital Signs Temp 97.5 F L 12/04/23 06:30 Pulse 104 H 12/04/23 09:30 Resp 32 H 12/04/23 09:30 BP 139/96 12/04/23 09:30 Pulse Ox 88 L 12/04/23 09:30 O2 Del Method Oxymask 12/04/23 07:40 O2 Flow Rate 3 12/04/23 07:40 FiO2 30 12/04/23 04:30 12/03/23 12/04/23 12/04/23 22:59 06:59 14:59 Intake Total 98 / Output Total 50 / 50 Balance 1966.98 / 1966.98 Weight last 48 hrs Weight 47 kg Weight 47 kg Weight 47.5 kg Weight 46.266 kg Physical Exam Narrative: Patient sitting at the bedside Awaiting breakfast tray Hemodynamically stable Sinus tachycardia 104 heart rate Blood pressure stable Bilateral diminished breath sounds Currently on 3 L 100 mL serosanguineous fluid in the bag Pericardial drain in place GCS 15 Nonfocal neuroexam Hirsutism No active signs of withdrawal Data 12/03/23 16:35 12/03/23 16:35 Micro: Microbiology 12/03/23 16:40 Blood Culture - Preliminary Blood SPECIMEN COLLECTED 12/03/23 16:35 Blood Culture - Preliminary Blood SPECIMEN COLLECTED A&P Assessment and plan (1) Pericardial effusion: (2) Acute exacerbation of chronic obstructive airways disease: (3) Acute and chronic respiratory failure with hypoxia: (4) Mass of left lung: (5) Elevated transaminase level: (6) D-dimer, elevated: (7) Alcoholism: Encourage cessation. She states was not had any alcohol since last admission. 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 Awaiting cytology report Pericardial drain in place If drainage decreases by tomorrow cardiology might take it out Draining every 2 hours 100 mL serosanguineous discharge noted today No hemodynamic instability Will need to repeat echo by Thursday Continue high-dose steroids which might worsen her leukocytosis by tomorrow Lung mass with concern for lymphangitic metastatic lesions Patient will need outpatient pulmonary follow-up with bronchoscopy and biopsy No acute indication Considering her homeless situation I am not sure if she will be considered a good candidate for chemoradiotherapy She is wanting to acquire assisted living facility first before pursuing diagnostic workup Acute COPD exacerbation Patient has been taken off BiPAP Currently doing well on 3 L nasal cannula Patient uses albuterol and Anoro Ellipta 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 Abnormal D-dimer which is related to cancer CTA did not show PE Alcoholism: Continue CIWA protocol UTI continue: Levofloxacin product communications manager is aware that we have to arrange assisted living facility Patient will nee outpatient referral for diagnostic workup for lung mass I have encouraged patient to point someone from her family instead of her friend in [place] as medical DPOA Full code Cardiac diet Appreciate cardiology recommendations Attestations Medical Necessity Statement*: Continue ICU management Diagnoses Pericardial effusion I31.39 Acute exacerbation of chronic obstructive airways disease J44.1 Acute and chronic respiratory failure with hypoxia J96.21 Mass of left lung R91.8 Elevated transaminase level R74.01 D-dimer, elevated R79.89 Alcoholism F10.20 Smoking F17.200 UTI (urinary tract infection) N39.0 Goals of care, counseling/discussion Z71.89
[2023-12-04] MEDS: folic acid 1 mg Tablet PO (11:58)
[2023-12-04] MEDS: ondansetron 2 mg/ML SDV 2 mL 4 MG IVP (12:00)
[2023-12-04] MEDS: guaiFENesin 100 mg/5 mL UDC 10 mL 400 MG PO ×2 (16:05→20:41)
--- NOTE | 2023-12-04 19:07 | PC.NURSE ---
Shift Summary: Uneventful shift. Patient rested in bed for most of the day. Up to the chair for 2 hours and up to the bedside commode. 48mL of drainage from pericardial drain, serosanguinous drainage but has become more serous throughout the day and less output.
[2023-12-04] MEDS: atorvastatin 40 mg Tablet PO (20:41)
[2023-12-05] VITALS (62 sets, daily range): BP systolic 87–140; BP diastolic 54–99; PULSE 96–117; RESP 13–27; TEMP 36.1–37.3; O2SAT 83–95
[2023-12-05] MEDS: enoxaparin 40 mg/0.4 mL Syringe SUBCUT (00:32)
[2023-12-05] MEDS: methylPREDNISolone sod succ 125 mg/2 mL INJ 60 MG IVP ×4 (00:32→18:43)
[2023-12-05] MEDS: ipratropium-albuterol 3 mL Neb INHALATION ×4 (02:14→19:21)
[2023-12-05] MEDS: morphine 4 mg/mL SDV 1 mL 2 MG IVP ×6 (02:24→22:49)
[2023-12-05 04:13] LABS: Basophils % 0.1 %; Hematocrit 41.6 % (36-47); Lymphocytes # 0.4 10^3/uL (0.8-4.8); Mean Corpuscular HGB Conc 31.5 g/dL (30-55); Mean Corpuscular Hemoglobin 28.4 pg (27-33); Mean Platelet Volume 10.2 fL (7.4-10.4); Monocytes # 0.9 10^3/uL (0.2-0.9); Monocytes % 4.7 %; Neutrophils # 17.05 10^3/uL (1.8-7.7); Neutrophils % 92.7 %; Nucleated Red Blood Cells % 0 %; Platelet Count 469 10^3/cmm (157-399); Red Blood Count 4.62 10^6/uL (3.85-5.65); Red Cell Distribution Width 16.9 % (12.1-15.1)
[2023-12-05 04:37] LABS: Alanine Aminotransferase 57 U/L (0-33); Albumin Level 3.1 g/dL (3.5-5.2); Alkaline Phosphatase 137 U/L (35-105); Anion Gap 17.1 (5-19); Aspartate Amino Transferase 36 U/L (0-32); Blood Urea Nitrogen 16 mg/dL (6-20); Calcium 8.3 mg/dL (8.5-10.5); Carbon Dioxide 23 mmol/L (22-29); Chloride 102 mmol/L (98-107); Creatinine Clr Calc Pharmacy 77.6806; Globulin 3.1 g/dL (1.3-4.6); Glomerular Filtration Rate 103.4 mL/min (90-130); Glucose 122 mg/dL (65-115); Osmolality Calculated 288 mOsm/kg (285-295); Potassium 4.1 mmol/L (3.5-5.1); Sodium 138 mmol/L (136-145); Total Bilirubin 0.4 mg/dL (0.15-1.2); Total Protein 6.2 g/dL (6.6-8.7)
[2023-12-05] MEDS: folic acid 1 mg Tablet PO (08:08)
[2023-12-05] MEDS: pantoprazole DR 40 mg Tablet PO (08:09)
[2023-12-05] MEDS: thiamine 100 mg Tablet PO (08:09)
[2023-12-05] MEDS: multivitamin therapeutic Tablet 1 TAB PO (08:09)
[2023-12-05] MEDS: metoprolol tartrate 25 mg Tablet PO ×2 (08:10→20:58)
--- NOTE | 2023-12-05 08:21 | PM.PN ---
Subjective Subjective: Patient feeling better. No chest pain. Has 70 cc of drain output in last 24 hours. Vitals/I&O/Wt Last Vital Signs Temp 97.0 F L 12/05/23 00:00 Pulse 105 H 12/05/23 07:57 Resp 17 12/05/23 07:48 BP 105/68 12/05/23 04:00 Pulse Ox 91 12/05/23 07:48 O2 Del Method Oxymask 12/05/23 07:48 O2 Flow Rate 4 12/05/23 07:48 FiO2 3 12/04/23 16:30 12/04/23 12/05/23 12/05/23 22:59 06:59 14:59 Intake Total 480 / 680 0 / 680 Output Total 53 / 448 178 / 626 Balance 427 / 232 -178 / 54 Weight last 48 hrs Weight 104 lb 11.513 oz Weight 104 lb 11.513 oz Weight 103 lb 9.876 oz Weight 103 lb 9.876 oz Weight 104 lb 11.513 oz Weight 102 lb Physical Exam Narrative: GENERAL: Patient is alert, awake and oriented x3. NECK: No jugular vein distension. [] HEENT: No cyanosis. No icterus. No pallor. [] HEART: Tachycardic LUNGS: Clear to auscultate bilaterally. [] CENTRAL NERVOUS SYSTEM: Grossly nonfocal. [] EXTREMITIES: Lower extremities with 1+ edema bilaterally. Data 12/05/23 02:34 12/05/23 02:34 Micro: Microbiology 12/03/23 16:40 Blood Culture - Preliminary Blood NEGATIVE TO DATE 12/03/23 16:35 Blood Culture - Preliminary Blood NEGATIVE TO DATE A&P Assessment and plan (1) Pericardial effusion: (2) COPD (chronic obstructive pulmonary disease): Plan Patient is feeling better. We will repeat limited echo today and if no significant effusion seen, will remove drain. She will need outpatient limited echo in 1 to 2 weeks to assess reaccumulation of effusion. If that is the case, likely need pericardial window. Also will need evaluation and workup for lung mass. Thank you for involving us with care of this patient. We will continue to follow. Please call with questions. Attestations Medical Necessity Statement*: Care expected to cross 2 midnights. Coding Level [facility] Pericardial effusion I31.39 COPD (chronic obstructive pulmonary disease) J44.9
--- NOTE | 2023-12-05 08:39 | USCV_ITS ---
Ade Mcpherson Age: 58 Gender: F : 1965 Exam Date: 12/05/2023 10:15 Ordering Phys: Kory Corral M.D ([email or web address]) Technologist: Cesario Parekh Exam Location: [facility] [place] Indication: follow up pericardial effusion BP: / HR: Rhythm: Sinus Technical Quality: Suboptimal MEASUREMENTS (Male / Female) Normal Values FINDINGS Left Ventricle Right Ventricle Right Atrium Left Atrium Mitral Valve Aortic Valve Tricuspid Valve Pulmonic Valve Pericardium Aorta IVC CONCLUSIONS Limited echocardiogram performed to reassess pericardial effusion prior to pericardial drain removal. LV systolic function is normal. Very small sized pericardial effusion seen in some views. No significant accumulation of fluid seen. Kory Corral MD (Electronically Signed) Final Date: 05 December 2023 10:45 S
--- NOTE | 2023-12-05 11:10 | PC.NURSE ---
Dr dong reviewed the echocardiogram from today. Decided to remove pericardial drain. Ellis came to bedside to remove drain Tegaderm in place.
[2023-12-05] MEDS: levofloxacin-dextrose 5 % 500 MG/100 ML PREMIX 100 MG IV (11:47)
--- NOTE | 2023-12-05 15:17 | P.PN_ITS ---
Subjective 2 Subjective: Patient reports overall she is feeling better. Her drain was removed this morning by cardiology. She endorses diffuse weakness. She is having some anxiety and stress regarding all these new diagnoses. She also has multiple personal life stressors that she is dealing with as well. Denies fevers or chills. Denies nausea or emesis. Medications: Reviewed: Yes Vitals/I&O/Wt Last Vital Signs Temp 97.8 F 12/05/23 06:00 Pulse 104 H 12/05/23 14:00 Resp 16 12/05/23 14:56 BP 103/63 12/05/23 09:35 Pulse Ox 91 12/05/23 14:56 O2 Del Method Oxymask 12/05/23 13:45 O2 Flow Rate 4 12/05/23 13:45 FiO2 3 12/04/23 16:30 12/05/23 12/05/23 12/05/23 06:59 14:59 22:59 Intake Total 0 / 680 300 / 300 Output Total 178 / 626 Balance -178 / 54 300 / 300 Weight last 48 hrs Weight 47.5 kg Weight 47.5 kg Weight 47 kg Weight 47 kg Weight 47.5 kg Weight 46.266 kg Physical Exam 2 Narrative: General: Patient is awake and alert. In bed. Appears chronically ill. Head: Normocephalic. Atraumatic. EOM intact. Neck: No JVD. Cardiovascular: No gallops. No murmurs. No peripheral edema. Slightly tachycardic. Lungs: Breath sounds are slightly diminished to bilateral bases. No wheezing. No crackles. No rales.. Skin: No jaundice. No rashes. Abdomen: Normal bowel sounds, abdomen soft and nontender. Genito Urinary: Genital exam not performed since complaints not related. Rectal: Rectal exam not performed since no symptoms indicated blood loss. Extremities: No cyanosis or clubbing. Musculoskeletal: No swollen or erythematous joints. Neurological: Moves all 4 extremities. No myoclonus. Data 12/05/23 02:34 12/05/23 02:34 Micro: Microbiology 12/04/23 02:00 Body Fluid Culture - Preliminary Pericardial Fluid 12/03/23 16:48 Urine Culture - Preliminary Urine,Clean Catch Gram Negative Rods 12/03/23 16:40 Blood Culture - Preliminary Blood NEGATIVE TO DATE 12/03/23 16:35 Blood Culture - Preliminary Blood NEGATIVE TO DATE A&P Assessment and plan (1) Pericardial effusion: (2) Acute exacerbation of chronic obstructive airways disease: (3) Acute and chronic respiratory failure with hypoxia: (4) Mass of left lung: (5) Elevated transaminase level: (6) D-dimer, elevated: (7) Alcoholism: Encourage cessation. She states was not had any alcohol since last admission. 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 Coding Level of Care Code Acute Code for [facility] Fwd Diagnoses Pericardial effusion I31.39 Acute exacerbation of chronic obstructive airways disease J44.1 Acute and chronic respiratory failure with hypoxia J96.21 Mass of left lung R91.8 Elevated transaminase level R74.01 D-dimer, elevated R79.89 Alcoholism F10.20 Smoking F17.200 UTI (urinary tract infection) N39.0 Goals of care, counseling/discussion Z71.89
--- NOTE | 2023-12-05 18:32 | PC.NURSE ---
Shift SUmmary: Pericardial drain removed. Uneventful shift since. Chest pain associated with the puncture site, patient states it is not the same quality pain which had her come to the hospital, relieved with morphine. Up to a chair for about 4 hours today. Total urine output of 300mL. Puncture site from pericardial drain is covered with a tegaderm No drainage. Site appears unremarkable.
[2023-12-05] MEDS: atorvastatin 40 mg Tablet PO (20:57)
[2023-12-05] MEDS: nicotine 21 mg Patch 1 PATCH TRANSDERMA (20:58)
[2023-12-05] MEDS: guaiFENesin 100 mg/5 mL UDC 10 mL 400 MG PO (22:19)
[2023-12-06] VITALS (42 sets, daily range): BP systolic 107–157; BP diastolic 65–101; PULSE 70–110; RESP 15–28; TEMP 36.3–37; O2SAT 86–94
[2023-12-06] MEDS: methylPREDNISolone sod succ 125 mg/2 mL INJ 60 MG IVP ×3 (00:41→14:16)
[2023-12-06] MEDS: enoxaparin 40 mg/0.4 mL Syringe SUBCUT (00:41)
[2023-12-06] MEDS: ipratropium-albuterol 3 mL Neb INHALATION ×4 (02:40→20:35)
[2023-12-06] MEDS: morphine 4 mg/mL SDV 1 mL 2 MG IVP ×4 (02:56→21:54)
[2023-12-06] MEDS: guaiFENesin 100 mg/5 mL UDC 10 mL 400 MG PO ×2 (02:56→22:07)
[2023-12-06 04:18] LABS: Basophils % 0.1 %; Hematocrit 40.6 % (36-47); Lymphocytes # 0.3 10^3/uL (0.8-4.8); Lymphocytes % 1.7 %; Mean Corpuscular Hemoglobin 28.3 pg (27-33); Mean Corpuscular Volume 91.2 fl (85-98); Mean Platelet Volume 10.1 fL (7.4-10.4); Monocytes # 0.7 10^3/uL (0.2-0.9); Monocytes % 3.9 %; Neutrophils # 16.25 10^3/uL (1.8-7.7); Neutrophils % 93.7 %; Nucleated Red Blood Cells % 0 %; Platelet Count 435 10^3/cmm (157-399); Red Blood Count 4.45 10^6/uL (3.85-5.65); Red Cell Distribution Width 17.2 % (12.1-15.1); White Blood Count 17.36 10^3/uL (3.29-11.43)
[2023-12-06 04:51] LABS: Alanine Aminotransferase 58 U/L (0-33); Albumin Level 3.4 g/dL (3.5-5.2); Alkaline Phosphatase 138 U/L (35-105); Anion Gap 14.3 (5-19); Aspartate Amino Transferase 35 U/L (0-32); Blood Urea Nitrogen 14 mg/dL (6-20); Calcium 8.3 mg/dL (8.5-10.5); Carbon Dioxide 28 mmol/L (22-29); Chloride 103 mmol/L (98-107); Creatinine Clr Calc Pharmacy 94.2083; Globulin 2.6 g/dL (1.3-4.6); Glomerular Filtration Rate 127.6 mL/min (90-130); Glucose 134 mg/dL (65-115); Osmolality Calculated 294 mOsm/kg (285-295); Potassium 4.3 mmol/L (3.5-5.1); Sodium 141 mmol/L (136-145); Total Bilirubin 0.4 mg/dL (0.15-1.2)
[2023-12-06] MEDS: acetaminophen 325 mg Tablet 650 MG PO (08:16)
[2023-12-06] MEDS: multivitamin therapeutic Tablet 1 TAB PO (08:17)
[2023-12-06] MEDS: losartan 50 mg Tablet PO (08:17)
[2023-12-06] MEDS: folic acid 1 mg Tablet PO (08:17)
[2023-12-06] MEDS: thiamine 100 mg Tablet PO (08:17)
[2023-12-06] MEDS: pantoprazole DR 40 mg Tablet PO (08:17)
[2023-12-06] MEDS: metoprolol tartrate 25 mg Tablet PO ×2 (08:21→21:50)
--- NOTE | 2023-12-06 08:30 | PC.NURSE ---
Noted 2 inhalers on bedside table. Ventolin and Anoro. Pt stated these were her home inhalers. When asked if she had taken a dose today she indicated she did not have Anoro today. Instructed pt that home meds should only be used in the hospital if the physician ordered them. Discussed the reasoning for this, pt verbalized understanding. Placed the inhalers back into pt;bela taylor.
--- NOTE | 2023-12-06 08:57 | P.PN_ITS ---
Subjective 2 Subjective: Patient is doing well. Some pleuritic chest pain. Had pericardial drain removed yesterday Vitals/I&O/Wt Last Vital Signs Temp 97.3 F L 12/06/23 04:00 Pulse 99 12/06/23 08:36 Resp 20 H 12/06/23 08:36 BP 144/98 12/06/23 08:17 Pulse Ox 90 12/06/23 08:36 O2 Del Method Nasal Cannula 12/06/23 08:36 O2 Flow Rate 3 12/06/23 08:36 FiO2 3 12/04/23 16:30 12/05/23 12/06/23 12/06/23 22:59 06:59 14:59 Intake Total 40 / 540 0 / 540 Output Total 3 / 306 550 / 856 Balance 37 / 234 -550 / -316 Weight last 48 hrs Weight 106 lb 8 oz Weight 106 lb 8 oz Weight 104 lb 11.513 oz Weight 104 lb 11.513 oz Physical Exam 2 Narrative: GENERAL: Patient is alert, awake and oriented x3. NECK: No jugular vein distension. [] HEENT: No cyanosis. No icterus. No pallor. [] HEART: Tachycardic LUNGS: Clear to auscultate bilaterally. [] CENTRAL NERVOUS SYSTEM: Grossly nonfocal. [] EXTREMITIES: Lower extremities with 1+ edema bilaterally. Data 12/07/23 04:35 12/07/23 04:35 Micro: Microbiology 12/04/23 02:00 Body Fluid Culture - Preliminary Pericardial Fluid 12/03/23 16:48 Urine Culture - Preliminary Urine,Clean Catch Gram Negative Rods A&P Assessment and plan (1) Pericardial effusion: (2) COPD (chronic obstructive pulmonary disease): Plan Patient is stable. Continue medical therapy per primary team. Pericardial fluid cytology pending. Thank you for involving us with care of this patient. Please call with questions. Attestations 2 Medical Necessity Statement*: Care expected to cross 2 midnights. Coding Level of Care Code Acute Code for g Fwd Diagnoses Pericardial effusion I31.39 COPD (chronic obstructive pulmonary disease) J44.9
[2023-12-06] MEDS: levofloxacin-dextrose 5 % 500 MG/100 ML PREMIX 100 MG IV (12:01)
--- NOTE | 2023-12-06 14:53 | P.PN_ITS ---
Subjective 2 Subjective: Patient reports continued cough. Reports fatigue. Denies significant shortness of breath or palpitations. Denies nausea or vomiting. Medications: Reviewed: Yes Vitals/I&O/Wt Last Vital Signs Temp 98.3 F 12/06/23 12:00 Pulse 95 12/06/23 14:00 Resp 20 H 12/06/23 13:05 BP 120/73 12/06/23 12:00 Pulse Ox 91 12/06/23 13:05 O2 Del Method Nasal Cannula 12/06/23 13:05 O2 Flow Rate 3 12/06/23 13:05 FiO2 3 12/04/23 16:30 12/05/23 12/06/23 12/06/23 22:59 06:59 14:59 Intake Total 40 / 540 0 / 540 520 / 520 Output Total 3 / 306 550 / 856 Balance 37 / 234 -550 / -316 520 / 520 Weight last 48 hrs Weight 48.308 kg Weight 48.308 kg Weight 47.5 kg Weight 47.5 kg Physical Exam 2 Narrative: General: Patient is initially sleeping. Awakens to name. Pleasant. Head: Normocephalic. Atraumatic. EOM intact. Hirsutism. Neck: No JVD. Cardiovascular: No gallops. No murmurs. No peripheral edema. Lungs: Breath sounds are diminished to bilateral bases. No wheezing. No crackles. No rales. On supplemental oxygen support. Skin: No jaundice. No rashes. Abdomen: Normal bowel sounds, abdomen soft and nontender. Extremities: No cyanosis or clubbing. Musculoskeletal: No swollen or erythematous joints. Neurological: Moves all 4 extremities. No myoclonus. Data 12/06/23 02:37 12/06/23 02:37 Micro: Microbiology 12/04/23 02:00 Body Fluid Culture - Preliminary Pericardial Fluid A&P Assessment and plan (1) Pericardial effusion: Cardiac tamponade/pericardial effusion Suspected malignant, cytology is pending Pericardial drain removed 12/04 Cardiology following Plan for repeat limited echo in 2 weeks Continuous telemetry monitoring Downgrade from ICU (2) Acute exacerbation of chronic obstructive airways disease: Continue steroids Continue breathing treatments (3) Mass of left lung: Lung mass with concern for lymphangitic metastatic lesions Patient will need outpatient pulmonary follow-up with bronchoscopy and biopsy (4) Acute and chronic respiratory failure with hypoxia: Treat underlying COPD exacerbation (5) Homelessness: Patient reports homelessness Anticipate case management/social work follow-up on Thursday for discharge planning (6) UTI (urinary tract infection): Continue levofloxacin (7) Elevated transaminase level: Continue to monitor (8) D-dimer, elevated: Likely related to suspected underlying malignancy (9) Alcoholism: Alcohol use disorder with abuse Continue CIWA Continue folic acid Continue thiamine Continue multivitamin (10) Smoking: She would benefit from smoking cessation (11) Hypertension: Continue losartan Plan DVT prophylaxis: Lovenox CODE STATUS: Full code Attestations 2 Medical Necessity Statement*: Patient requires ongoing hospitalization for steroids, IV antibiotics, serial exams, telemetry, and supportive care. Coding Level of Care Code Acute Code for [facility] Fwd Diagnoses Pericardial effusion I31.39 Acute exacerbation of chronic obstructive airways disease J44.1 Mass of left lung R91.8 Acute and chronic respiratory failure with hypoxia J96.21 Homelessness Z59.00 UTI (urinary tract infection) N39.0 Elevated transaminase level R74.01 D-dimer, elevated R79.89 Alcoholism F10.20 Smoking F17.200 Hypertension I10
--- NOTE | 2023-12-06 17:16 | PC.NURSE ---
Report called to [facility]. Report given to ADALBERTO Lopez
--- NOTE | 2023-12-06 17:56 | PC.NURSE ---
Pt transferred to 279-1. Further update given to ADALBERTO Lopez. All belongings with pt.
[2023-12-06] MEDS: atorvastatin 40 mg Tablet PO (21:50)
[2023-12-06] MEDS: nicotine 21 mg Patch 1 PATCH TRANSDERMA (21:50)
[2023-12-07] VITALS (19 sets, daily range): BP systolic 145–164; BP diastolic 78–96; PULSE 84–114; RESP 14–20; TEMP 36.4–37; O2SAT 89–93
--- NOTE | 2023-12-07 00:26 | ECG_ITS ---
[facility] Test Date: 2023-12-07 Pat Name: Ade Mcpherson Department: Room: 279 Gender: Female [employer]: : 1965 Requested By: Mariela Scott Order Number: [id number] Lucy MD: Emmanuel Doss M.D. Measurements Intervals [place] Rate: 86 P: 72 AK: 117 QRS: 74 QRSD: 76 T: 99 QT: 361 QTc: 433 Interpretive Statements SINUS RHYTHM WITH SHORT AK INTERVAL POSSIBLE LEFT ATRIAL ENLARGEMENT [-0.1mV P-WAVE IN V1/V2] NONSPECIFIC ST & T-WAVE ABNORMALITY Compared to ECG 12/04/2023 02:38:59 Short AK interval now present T-wave abnormality now present Myocardial infarct finding no longer present Electronically Signed On 12-07-2023 22:45:03 CDT by Emmanuel Doss M.D. [email or web address]
--- NOTE | 2023-12-07 00:35 | PC.NURSE ---
Patient on telemetry had been running SR/ST on monitor but was noted at 0017 to go into what appeared to be rapid afib vs aflutter with rate as high as 200. The nurse went into the room to check patient and the patient was asymptomatic and converted back into SR rate in 80s by time nurse got into the room. The patient again went back into afib but converted before staff could obtain an EKG. EKG was obtain but patient was back into SR at that point. was called and made aware of the situation, sent picture on volte of telemetry print out. gave order for PRN metoprolol IV which was administered due to episodes of tachycardia.
[2023-12-07] MEDS: enoxaparin 40 mg/0.4 mL Syringe SUBCUT (00:42)
[2023-12-07] MEDS: methylPREDNISolone sod succ 40 mg/mL INJ IVP ×2 (00:44→14:05)
[2023-12-07] MEDS: acetaminophen 325 mg Tablet 650 MG PO (00:48)
[2023-12-07] MEDS: metoprolol tartrate 1 mg/1 mL SDV 5 mL 5 MG IVP (00:50)
[2023-12-07] MEDS: ipratropium-albuterol 3 mL Neb INHALATION ×4 (02:12→21:15)
[2023-12-07 05:01] LABS: Basophils % 0.1 %; Eosinophils % 0.1 %; Hematocrit 39.9 % (36-47); Lymphocytes # 0.3 10^3/uL (0.8-4.8); Lymphocytes % 2.2 %; Mean Corpuscular HGB Conc 31.6 g/dL (30-55); Mean Corpuscular Hemoglobin 28.4 pg (27-33); Mean Corpuscular Volume 89.9 fl (85-98); Mean Platelet Volume 9.9 fL (7.4-10.4); Monocytes # 0.8 10^3/uL (0.2-0.9); Monocytes % 5.2 %; Neutrophils # 13.47 10^3/uL (1.8-7.7); Neutrophils % 91.4 %; Nucleated Red Blood Cells % 0 %; Platelet Count 407 10^3/cmm (157-399); Red Blood Count 4.44 10^6/uL (3.85-5.65); Red Cell Distribution Width 17.1 % (12.1-15.1); White Blood Count 14.72 10^3/uL (3.29-11.43)
[2023-12-07 05:38] LABS: Alanine Aminotransferase 63 U/L (0-33); Albumin Level 3.1 g/dL (3.5-5.2); Alkaline Phosphatase 127 U/L (35-105); Anion Gap 13.7 (5-19); Aspartate Amino Transferase 36 U/L (0-32); Blood Urea Nitrogen 12 mg/dL (6-20); Calcium 7.8 mg/dL (8.5-10.5); Carbon Dioxide 27 mmol/L (22-29); Chloride 102 mmol/L (98-107); Creatinine Clr Calc Pharmacy 95.8109; Globulin 2.4 g/dL (1.3-4.6); Glomerular Filtration Rate 127.6 mL/min (90-130); Glucose 165 mg/dL (65-115); Osmolality Calculated 291 mOsm/kg (285-295); Potassium 3.7 mmol/L (3.5-5.1); Sodium 139 mmol/L (136-145); Total Bilirubin 0.6 mg/dL (0.15-1.2); Total Protein 5.5 g/dL (6.6-8.7)
[2023-12-07] MEDS: morphine 4 mg/mL SDV 1 mL 2 MG IVP ×4 (06:25→20:42)
[2023-12-07] MEDS: guaiFENesin 100 mg/5 mL UDC 10 mL 400 MG PO ×4 (06:32→20:42)
--- NOTE | 2023-12-07 07:33 | P.PN_ITS ---
Subjective 2 Subjective: Patient feeling better. Has some shortness of breath. Vitals/I&O/Wt Last Vital Signs Temp 98.6 F 12/07/23 04:00 Pulse 105 H 12/07/23 06:00 Resp 14 12/07/23 06:25 BP 149/92 12/07/23 04:00 Pulse Ox 93 12/07/23 04:00 O2 Del Method Nasal Cannula 12/07/23 04:17 O2 Flow Rate 3 12/07/23 04:17 FiO2 3 12/04/23 16:30 12/06/23 12/07/23 12/07/23 22:59 06:59 14:59 Intake Total 240 / 760 240 / 1000 Output Total 250 / 250 800 / 1050 Balance -10 / 510 -560 / -50 Weight last 48 hrs Weight 106 lb Weight 106 lb 8 oz Weight 106 lb 8 oz Physical Exam 2 Narrative: GENERAL: Patient is alert, awake and oriented x3. NECK: No jugular vein distension. [] HEENT: No cyanosis. No icterus. No pallor. [] HEART: Tachycardic LUNGS: Clear to auscultate bilaterally. [] CENTRAL NERVOUS SYSTEM: Grossly nonfocal. [] EXTREMITIES: Lower extremities with 1+ edema bilaterally. Data 12/08/23 05:00 12/08/23 05:00 Micro: Microbiology 12/04/23 02:00 Body Fluid Culture - Preliminary Pericardial Fluid A&P Assessment and plan (1) Pericardial effusion: (2) COPD (chronic obstructive pulmonary disease): Plan Patient is overall stable. Heart rate is staying elevated. Uptitrate beta luis. Pericardial fluid cytology pending. Thank you for involving us with care of this patient. We will continue to follow. Please call with questions. Attestations 2 Medical Necessity Statement*: Care expected to cross 2 midnights. Coding Level of Care Code Acute Code for [facility] Fwd Diagnoses Pericardial effusion I31.39 COPD (chronic obstructive pulmonary disease) J44.9
[2023-12-07] MEDS: pantoprazole DR 40 mg Tablet PO (08:24)
[2023-12-07] MEDS: multivitamin therapeutic Tablet 1 TAB PO (08:24)
[2023-12-07] MEDS: metoprolol tartrate 25 mg Tablet PO ×2 (08:26→20:42)
[2023-12-07] MEDS: clopidogrel 75 mg Tablet PO (08:26)
[2023-12-07] MEDS: folic acid 1 mg Tablet PO (08:26)
[2023-12-07] MEDS: losartan 50 mg Tablet PO (08:26)
[2023-12-07] MEDS: thiamine 100 mg Tablet PO (08:26)
--- NOTE | 2023-12-07 10:27 | PC.NURSE ---
This nurse educated patient on the use of SCDs and how they help to prevent blood clots and it was ordered. Patient is alert and oriented. Patient said, They are giving me the shot for that. Patient refused and this nurse respected that decision.
[2023-12-07] MEDS: levofloxacin-dextrose 5 % 500 MG/100 ML PREMIX 100 MG IV (11:08)
[2023-12-07 11:45] LABS: Methicillin-Resist S.aureu PCR NOT DETECTED (NOT DETECTED)
--- NOTE | 2023-12-07 12:27 | P.PN_ITS ---
Subjective 2 Subjective: She is overall doing so-so. Had weaned off BiPAP. Still requiring nasal cannula oxygen support. Without chest pain. She is working with case management with regards to postdischarge disposition. Vitals/I&O/Wt Last Vital Signs Temp 98.1 F 12/07/23 07:34 Pulse 107 H 12/07/23 07:34 Resp 17 12/07/23 10:59 BP 145/89 12/07/23 07:34 Pulse Ox 91 12/07/23 07:34 O2 Del Method Nasal Cannula 12/07/23 07:34 O2 Flow Rate 3 12/07/23 08:56 FiO2 3 12/04/23 16:30 12/06/23 12/07/23 12/07/23 22:59 06:59 14:59 Intake Total 240 / 760 240 / 1000 340 / 340 Output Total 250 / 250 800 / 1050 Balance -10 / 510 -560 / -50 340 / 340 Weight last 48 hrs Weight 48.081 kg Weight 48.308 kg Weight 48.308 kg Physical Exam 2 Narrative: Nasal cannula oxygen. Const: COMMON NORMALS: patient oriented x3 and alert GENERAL APPEARANCE: c ooperative ORIENTATION/CONSCIOUSNESS: Yes awake HENMT: COMMON NORMALS: oropharynx normal Neck/C-Spine: COMMON NORMALS: no JVD Resp: AUSCULTATION: diminished lung sounds Cardio: COMMON NORMALS: no JVD, regular rhythm, S1 normal heart sound present, S2 normal heart sound present and No murmurs present (Cardio) RATE: t achycardic RHYTHM: regular rhythm HEART SOUNDS: S1 normal heart sound present and S2 normal heart sound present GI: COMMON NORMALS: Normal to inspection, nondistended, normoactive bowel sounds present, Soft to palpation and non-tender PALPATION: Yes Soft to palpation Extremity: COMMON NORMALS: no joint enlargement and no pedal edema Neuro: COMMON NORMALS: patient oriented x3 and moves all extremities S ENSORIUM/ORIENTATION: Yes alert Skin: COMMON NORMALS: no rashes or lesions noted GENERAL SKIN EXAM: no rashes or lesions noted OTHER: Hirsutism Data 12/07/23 04:35 12/07/23 04:35 Micro: Microbiology 12/04/23 02:00 Body Fluid Culture - Final Pericardial Fluid A&P Assessment and plan (1) Pericardial effusion: Reviewed pericardial fluid culture, so far pending, mycobacterial and fungal smears pending. Sputum culture pending. Urine with gram-negative rods. Reviewed vitals, still with mild tachycardia 107. Maintaining blood pressure. WBC 14.72. Has been decreasing. Discussed with brilliandeer looper, repeat echocardiogram in 3-4 weeks. Follow-up with cardiology in clinic. Cytology is still pending. Discussed with her may provide answers as to the right lung mass, otherwise would still need to seek bronchoscopy and biopsy. Cardiac tamponade/pericardial effusion Suspected malignant, cytology is pending Pericardial drain removed 12/04 Cardiology following Continuous telemetry monitoring (2) Acute exacerbation of chronic obstructive airways disease: Will switch to prednisone Continue breathing treatments (3) Mass of left lung: Lung mass with concern for lymphangitic metastatic lesions. Pending pericardial fluid cytology. Patient will need outpatient pulmonary follow-up with bronchoscopy and biopsy (4) Acute and chronic respiratory failure with hypoxia: Treat underlying COPD exacerbation. Switch to oral prednisone. Continues on Levaquin. (5) Homelessness: Discussed with case management. Patient reports homelessness Anticipate case management/social work follow-up on Thursday for discharge planning (6) UTI (urinary tract infection): Reviewed urine culture, grew Enterobacter sensitive to quinolones. Continue levofloxacin (7) Elevated transaminase level: Continue to monitor (8) D-dimer, elevated: Likely related to suspected underlying malignancy (9) Alcoholism: Alcohol use disorder with abuse Continue CIWA Continue folic acid Continue thiamine Continue multivitamin (10) Smoking: She would benefit from smoking cessation (11) Hypertension: Continue losartan Plan DVT prophylaxis: Lovenox CODE STATUS: Full code Attestations 2 Medical Necessity Statement*: Continue admission for reassessment of respiratory status, condition status post pericardiocentesis with pleural effusion suspected due to malignancy, as well as COPD exacerbation, in the setting of suspected lung cancer. and High MDM includes amount and/or complexity of data reviewed/ordered [ resulted lab(s)/test(s), ordered lab(s)/test(s) and other healthcare professional discussion] as documented Diagnoses Pericardial effusion I31.39 Acute exacerbation of chronic obstructive airways disease J44.1 Mass of left lung R91.8 Acute and chronic respiratory failure with hypoxia J96.21 Homelessness Z59.00 UTI (urinary tract infection) N39.0 Elevated transaminase level R74.01 D-dimer, elevated R79.89 Alcoholism F10.20 Smoking F17.200 Hypertension I10
[2023-12-07 15:30] LABS: Glucose Point of Care 108 mg/dL (70-110)
[2023-12-07] MEDS: nicotine 21 mg Patch 1 PATCH TRANSDERMA (20:42)
[2023-12-07] MEDS: atorvastatin 40 mg Tablet PO (20:42)
[2023-12-08] VITALS (21 sets, daily range): BP systolic 103–177; BP diastolic 66–98; PULSE 95–126; RESP 16–22; TEMP 36.5–37.1; O2SAT 90–95
[2023-12-08] MEDS: morphine 4 mg/mL SDV 1 mL 2 MG IVP ×5 (00:43→21:06)
[2023-12-08] MEDS: guaiFENesin 100 mg/5 mL UDC 10 mL 400 MG PO ×4 (00:43→21:06)
[2023-12-08] MEDS: enoxaparin 40 mg/0.4 mL Syringe SUBCUT (00:44)
[2023-12-08] MEDS: ipratropium-albuterol 3 mL Neb INHALATION ×5 (02:44→21:38)
[2023-12-08 05:12] LABS: Basophils % 0.1 %; Eosinophils % 0.1 %; Hematocrit 47.3 % (36-47); Lymphocytes # 0.7 10^3/uL (0.8-4.8); Lymphocytes % 3.9 %; Mean Corpuscular HGB Conc 32.1 g/dL (30-55); Mean Corpuscular Hemoglobin 28.1 pg (27-33); Mean Corpuscular Volume 87.6 fl (85-98); Mean Platelet Volume 9.9 fL (7.4-10.4); Monocytes % 11.2 %; Neutrophils # 14.69 10^3/uL (1.8-7.7); Neutrophils % 83.8 %; Nucleated Red Blood Cells % 0 %; Platelet Count 463 10^3/cmm (157-399); Red Cell Distribution Width 17.2 % (12.1-15.1); White Blood Count 17.52 10^3/uL (3.29-11.43)
[2023-12-08 05:38] LABS: Alanine Aminotransferase 82 U/L (0-33); Albumin Level 3.6 g/dL (3.5-5.2); Alkaline Phosphatase 135 U/L (35-105); Anion Gap 14.2 (5-19); Aspartate Amino Transferase 31 U/L (0-32); Blood Urea Nitrogen 14 mg/dL (6-20); Calcium 8.2 mg/dL (8.5-10.5); Carbon Dioxide 30 mmol/L (22-29); Chloride 99 mmol/L (98-107); Creatinine Clr Calc Pharmacy 95.3607; Globulin 2.9 g/dL (1.3-4.6); Glomerular Filtration Rate 127.6 mL/min (90-130); Glucose 103 mg/dL (65-115); Osmolality Calculated 291 mOsm/kg (285-295); Potassium 3.2 mmol/L (3.5-5.1); Sodium 140 mmol/L (136-145); Total Bilirubin 0.9 mg/dL (0.15-1.2); Total Protein 6.5 g/dL (6.6-8.7)
--- NOTE | 2023-12-08 08:31 | P.PN_ITS ---
Subjective 2 Subjective: Patient has some shortness of breath. No chest pain. Vitals/I&O/Wt Last Vital Signs Temp 97.8 F 12/08/23 07:42 Pulse 120 H 12/08/23 08:00 Resp 22 H 12/08/23 08:00 BP 145/98 12/08/23 07:42 Pulse Ox 94 12/08/23 08:00 O2 Del Method Nasal Cannula 12/08/23 08:00 O2 Flow Rate 3 12/08/23 08:00 FiO2 3 12/04/23 16:30 12/07/23 12/08/23 12/08/23 22:59 06:59 14:59 Intake Total 720 / 1180 360 / 1540 Output Total 600 / 600 800 / 1400 Balance 120 / 580 -440 / 140 Weight last 48 hrs Weight 101 lb 4.8 oz Weight 106 lb Physical Exam 2 Narrative: GENERAL: Patient is alert, awake and oriented x3. NECK: No jugular vein distension. [] HEENT: No cyanosis. No icterus. No pallor. [] HEART: Tachycardic LUNGS: Clear to auscultate bilaterally. [] CENTRAL NERVOUS SYSTEM: Grossly nonfocal. [] EXTREMITIES: Lower extremities with 1+ edema bilaterally. Data 12/09/23 04:41 12/09/23 04:41 Micro: Microbiology 12/04/23 02:00 Fungal Smear - Preliminary Pericardial Fluid 12/04/23 02:00 Mycobacterial Smear - Preliminary Body Fluids - Pericardial 12/07/23 00:57 Gram Stain - Final Sputum - Expectorated Sputum 12/03/23 16:48 Urine Culture - Final Urine,Clean Catch Enterobacter aerogenes 12/04/23 02:00 Body Fluid Culture - Final Pericardial Fluid A&P Assessment and plan (1) Pericardial effusion: (2) COPD (chronic obstructive pulmonary disease): Plan Patient is stable from cardiac standpoint. Metoprolol 50mg BID Pericardial fluid cytology pending. Thank you for involving us with care of this patient. We will continue to follow. Please call with questions. Attestations 2 Medical Necessity Statement*: Care expected to cross 2 midnights. Coding Level of Care Code Acute Code for [facility] Diagnoses Pericardial effusion I31.39 COPD (chronic obstructive pulmonary disease) J44.9
[2023-12-08] MEDS: multivitamin therapeutic Tablet 1 TAB PO (08:37)
[2023-12-08] MEDS: losartan 50 mg Tablet PO (08:37)
[2023-12-08] MEDS: predniSONE 20 mg Tablet PO ×2 (08:37→17:16)
[2023-12-08] MEDS: clopidogrel 75 mg Tablet PO (08:37)
[2023-12-08] MEDS: thiamine 100 mg Tablet PO (08:37)
[2023-12-08] MEDS: pantoprazole DR 40 mg Tablet PO (08:37)
[2023-12-08] MEDS: folic acid 1 mg Tablet PO (08:38)
[2023-12-08] MEDS: metoprolol tartrate 25 mg Tablet PO (08:45)
[2023-12-08] MEDS: acetaminophen 325 mg Tablet 650 MG PO ×2 (08:54→17:16)
[2023-12-08] MEDS: potassium chloride ER 20 mEq Tablet PO (09:49)
[2023-12-08] MEDS: levofloxacin-dextrose 5 % 500 MG/100 ML PREMIX 100 MG IV (11:06)
--- NOTE | 2023-12-08 14:43 | P.PN_ITS ---
Subjective 2 Subjective: She is feeling about similar. Some epigastric discomfort. Also reported to have been having episodes of anxiety which exacerbate tachycardia. Vitals/I&O/Wt Last Vital Signs Temp 97.7 F 12/08/23 11:26 Pulse 110 H 12/08/23 12:00 Resp 20 H 12/08/23 12:00 BP 155/95 12/08/23 11:26 Pulse Ox 94 12/08/23 12:00 O2 Del Method Nasal Cannula 12/08/23 12:00 O2 Flow Rate 3 12/08/23 12:00 FiO2 3 12/04/23 16:30 12/07/23 12/08/23 12/08/23 22:59 06:59 14:59 Intake Total 720 / 1180 360 / 1540 100 / 100 Output Total 600 / 600 800 / 1400 150 / 150 Balance 120 / 580 -440 / 140 -50 / -50 Weight last 48 hrs Weight 45.949 kg Weight 48.081 kg Physical Exam 2 Narrative: Nasal cannula oxygen. Const: COMMON NORMALS: patient oriented x3 and alert GENERAL APPEARANCE: c ooperative ORIENTATION/CONSCIOUSNESS: Yes awake HENMT: COMMON NORMALS: oropharynx normal Neck/C-Spine: COMMON NORMALS: no JVD Resp: AUSCULTATION: diminished lung sounds Cardio: COMMON NORMALS: no JVD, regular rhythm, S1 normal heart sound present, S2 normal heart sound present and No murmurs present (Cardio) RATE: t achycardic RHYTHM: regular rhythm HEART SOUNDS: S1 normal heart sound present and S2 normal heart sound present GI: COMMON NORMALS: Normal to inspection, nondistended, normoactive bowel sounds present, Soft to palpation and non-tender PALPATION: Yes Soft to palpation Extremity: COMMON NORMALS: no joint enlargement and no pedal edema Neuro: COMMON NORMALS: patient oriented x3 and moves all extremities S ENSORIUM/ORIENTATION: Yes alert Skin: COMMON NORMALS: no rashes or lesions noted GENERAL SKIN EXAM: no rashes or lesions noted OTHER: Hirsutism Data 12/08/23 05:00 12/08/23 05:00 Micro: Microbiology 12/07/23 00:57 Gram Stain - Final Sputum - Expectorated Sputum Sputum Culture - Preliminary 12/04/23 02:00 Fungal Smear - Preliminary Pericardial Fluid 12/04/23 02:00 Mycobacterial Smear - Preliminary Body Fluids - Pericardial 12/03/23 16:48 Urine Culture - Final Urine,Clean Catch Enterobacter aerogenes 12/04/23 02:00 Body Fluid Culture - Final Pericardial Fluid A&P Assessment and plan (1) Pericardial effusion: Reviewed vitals, CBC, CMP, reviewed pericardial fluid culture. So far negative. Reviewed pathology, noted finding of metastatic adenocarcinoma. Discussed with oncology, discussed with her. She is going to be expected in office for follow- up with oncology as per discussion. They are also going to try to see if there is a possibility to add PD-L1 to the cytology testing. Additionally with some persistent tachycardia, blood pressure with some elevation, will increase metoprolol dose to 50 mg. Monitor heart rates. Blood pressure. Noted worsening leukocytosis today up to 17.5. Discharge deferred for now. Continues empirically on Levaquin. Reassess blood counts, vitals. Discussed with nursing, case loader operator. Reviewed pericardial fluid culture, so far pending, mycobacterial and fungal smears pending. Sputum culture pending. Urine with gram-negative rods. Reviewed vitals, still with mild tachycardia 107. Maintaining blood pressure. WBC 14.72. Has been decreasing. Discussed with sales appointment coordinator, repeat echocardiogram in 3-4 weeks. Follow-up with cardiology in clinic. Cytology is still pending. Discussed with her may provide answers as to the right lung mass, otherwise would still need to seek bronchoscopy and biopsy. Cardiac tamponade/pericardial effusion Suspected malignant, cytology is pending Pericardial drain removed 12/04 Cardiology following Continuous telemetry monitoring (2) Acute exacerbation of chronic obstructive airways disease: Will switch to prednisone. With some bouts of anxiety, worsening leukocytosis, will decrease prednisone to 10 mg. Continue breathing treatments (3) Mass of left lung: With finding of adenocarcinoma on pericardial fluid. No further need for bronchoscopy currently unless there will be need for more tissue. Suspected metastatic disease with mediastinal lymphadenopathy, suspected adrenal masses. Malignant pericardial effusion. Suspected right upper lung lung primary. Lung mass with concern for lymphangitic metastatic lesions. Pending pericardial fluid cytology. Patient will need outpatient pulmonary follow-up with bronchoscopy and biopsy (4) Acute and chronic respiratory failure with hypoxia: Treat underlying COPD exacerbation. Decrease oral prednisone. Continues on Levaquin. (5) Homelessness: Discussed with case management. Patient reports homelessness Anticipate case management/social work follow-up on Thursday for discharge planning (6) UTI (urinary tract infection): Reviewed urine culture, grew Enterobacter sensitive to quinolones. Continue levofloxacin (7) Elevated transaminase level: Continue to monitor (8) D-dimer, elevated: Likely related to suspected underlying malignancy (9) Alcoholism: Alcohol use disorder with abuse Continue CIWA Continue folic acid Continue thiamine Continue multivitamin (10) Smoking: She would benefit from smoking cessation (11) Hypertension: Continue losartan Plan DVT prophylaxis: Lovenox CODE STATUS: Full code Attestations 2 Medical Necessity Statement*: Continue admission for optimization of hypertension, tachycardia with malignant pericardial effusion as well as COPD exacerbation, in the setting of suspected lung cancer. and High MDM includes amount and/or complexity of data reviewed/ordered [ resulted lab(s)/test(s), ordered lab(s)/test(s) and other healthcare professional discussion] as documented Diagnoses Pericardial effusion I31.39 Acute exacerbation of chronic obstructive airways disease J44.1 Mass of left lung R91.8 Acute and chronic respiratory failure with hypoxia J96.21 Homelessness Z59.00 UTI (urinary tract infection) N39.0 Elevated transaminase level R74.01 D-dimer, elevated R79.89 Alcoholism F10.20 Smoking F17.200 Hypertension I10
[2023-12-08] MEDS: ALPRAZolam 0.5 mg Tablet PO (17:33)
[2023-12-08] MEDS: metoprolol tartrate 1 mg/1 mL SDV 5 mL 5 MG IVP (18:27)
[2023-12-08] MEDS: nicotine 21 mg Patch 1 PATCH TRANSDERMA (21:05)
[2023-12-08] MEDS: atorvastatin 40 mg Tablet PO (21:06)
[2023-12-08] MEDS: metoprolol tartrate 25 mg Tablet 50 MG PO (21:06)
[2023-12-09] VITALS (16 sets, daily range): BP systolic 103–148; BP diastolic 75–84; PULSE 91–114; RESP 15–18; TEMP 36.3–36.9; O2SAT 90–95
[2023-12-09] MEDS: enoxaparin 40 mg/0.4 mL Syringe SUBCUT (00:30)
[2023-12-09] MEDS: ipratropium-albuterol 3 mL Neb INHALATION ×4 (00:48→12:57)
[2023-12-09] MEDS: morphine 4 mg/mL SDV 1 mL 2 MG IVP ×3 (02:05→13:12)
[2023-12-09] MEDS: guaiFENesin 100 mg/5 mL UDC 10 mL 400 MG PO ×3 (02:10→13:11)
[2023-12-09] MEDS: acetaminophen 325 mg Tablet 650 MG PO (04:40)
[2023-12-09 04:50] LABS: Basophils % 0.1 %; Eosinophils % 0.1 %; Hematocrit 52.3 % (36-47); Lymphocytes # 0.3 10^3/uL (0.8-4.8); Lymphocytes % 3.2 %; Mean Corpuscular HGB Conc 31.9 g/dL (30-55); Mean Corpuscular Hemoglobin 28.2 pg (27-33); Mean Corpuscular Volume 88.2 fl (85-98); Mean Platelet Volume 9.8 fL (7.4-10.4); Monocytes # 0.1 10^3/uL (0.2-0.9); Neutrophils # 9.14 10^3/uL (1.8-7.7); Neutrophils % 94.9 %; Nucleated Red Blood Cells % 0 %; Platelet Count 435 10^3/cmm (157-399); Red Blood Count 5.93 10^6/uL (3.85-5.65); White Blood Count 9.64 10^3/uL (3.29-11.43)
[2023-12-09 05:20] LABS: Alanine Aminotransferase 90 U/L (0-33); Albumin Level 3.7 g/dL (3.5-5.2); Alkaline Phosphatase 157 U/L (35-105); Anion Gap 17.2 (5-19); Aspartate Amino Transferase 35 U/L (0-32); Blood Urea Nitrogen 15 mg/dL (6-20); Calcium 8.7 mg/dL (8.5-10.5); Carbon Dioxide 30 mmol/L (22-29); Chloride 99 mmol/L (98-107); Creatinine Clr Calc Pharmacy 65.0944; Globulin 3.2 g/dL (1.3-4.6); Glomerular Filtration Rate 86.6 mL/min (90-130); Glucose 99 mg/dL (65-115); Osmolality Calculated 295 mOsm/kg (285-295); Potassium 4.2 mmol/L (3.5-5.1); Sodium 142 mmol/L (136-145); Total Protein 6.9 g/dL (6.6-8.7)
[2023-12-09] MEDS: metoprolol tartrate 25 mg Tablet 50 MG PO (08:38)
[2023-12-09] MEDS: multivitamin therapeutic Tablet 1 TAB PO (08:38)
[2023-12-09] MEDS: thiamine 100 mg Tablet PO (08:38)
[2023-12-09] MEDS: clopidogrel 75 mg Tablet PO (08:38)
[2023-12-09] MEDS: pantoprazole DR 40 mg Tablet PO (08:39)
[2023-12-09] MEDS: folic acid 1 mg Tablet PO (08:39)
[2023-12-09] MEDS: losartan 50 mg Tablet PO (08:39)
[2023-12-09] MEDS: predniSONE 10 mg Tablet PO (08:39)
--- NOTE | 2023-12-09 08:53 | P.PN_ITS ---
Subjective 2 Subjective: Patient feeling better. No chest pain. Vitals/I&O/Wt Last Vital Signs Temp 97.9 F 12/09/23 07:43 Pulse 112 H 12/09/23 07:43 Resp 15 12/09/23 08:39 BP 148/79 12/09/23 08:39 Pulse Ox 90 12/09/23 07:43 O2 Del Method Nasal Cannula 12/09/23 07:43 O2 Flow Rate 3 12/09/23 07:43 FiO2 3 12/04/23 16:30 12/08/23 12/09/23 12/09/23 22:59 06:59 14:59 Intake Total 360 / 460 480 / 940 Output Total 500 / 650 600 / 1250 Balance -140 / -190 -120 / -310 Weight last 48 hrs Weight 101 lb 8 oz Weight 101 lb 4.8 oz Physical Exam 2 Narrative: GENERAL: Patient is alert, awake and oriented x3. NECK: No jugular vein distension. [] HEENT: No cyanosis. No icterus. No pallor. [] HEART: Tachycardic LUNGS: Clear to auscultate bilaterally. [] CENTRAL NERVOUS SYSTEM: Grossly nonfocal. [] EXTREMITIES: Lower extremities with 1+ edema bilaterally. Data 12/09/23 04:41 12/09/23 04:41 Micro: Microbiology 12/03/23 16:40 Blood Culture - Final Blood NO GROWTH AFTER 5 DAYS 12/03/23 16:35 Blood Culture - Final Blood NO GROWTH AFTER 5 DAYS 12/07/23 00:57 Gram Stain - Final Sputum - Expectorated Sputum Sputum Culture - Preliminary A&P Assessment and plan (1) Pericardial effusion: (2) COPD (chronic obstructive pulmonary disease): Plan Patient is overall stable. Continue metoprolol. Will need outpatient follow-up echocardiogram in 1 to 2 weeks to reassess accumulation of pericardial effusion and if it occurs again, will need pericardial window. Close cardiology follow- up in a week. Attestations 2 Medical Necessity Statement*: Care expected to cross 2 midnights. Coding Level of Care Code Acute Code for [facility] Diagnoses Pericardial effusion I31.39 COPD (chronic obstructive pulmonary disease) J44.9
[2023-12-09] MEDS: levofloxacin-dextrose 5 % 500 MG/100 ML PREMIX 100 MG IV (11:10)
--- NOTE | 2023-12-09 12:59 | PC.NURSE ---
Report called to Juanis La LPN at [facility] at [phone].
[2023-12-09] MEDS: ALPRAZolam 0.5 mg Tablet PO (13:18)
--- NOTE | 2023-12-09 16:29 | PC.NURSE ---
financial services education consultant arranged transport to SNF; care transport nurse accompanied pt
--- NOTE | 2023-12-09 21:34 | P.DS_ITS ---
Discharge Providers Date of Admission: 12/03/23 22:45 Date of Discharge: December 09, 2023 Attending Provider at Admission: Rafael Leal Attending Provider at Discharge: Rafael Leal Diagnoses at Discharge Discharge Diagnosis (1) Pericardial effusion: Status: Acute (2) COPD (chronic obstructive pulmonary disease): Status: Acute Reason for Visit Reason for Visit: resp distress Brief History: 58-year-old lady with recent admission h ere and discharged on 10/27 after treatment after intoxication, with finding of pneumonia, but CTA performed after abnormal D-dimer also revealed a right lung mass with suspected lymphangitic spread, possible adrenal mets, enlarged lymph nodes in the mediastinum for which she was being referred for additional follow-up for biopsy and diagnosis at [facility] in [place]. She was also noted to have emphysema with history of COPD, blood cultures grew coagulase-negative staph thought to be contamination. She was discharged with 5 days of Levaquin to complete for pneumonia. Was counseled on smoking cessation, alcohol avoidance. 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 Echocardiogram performed at that time showed preserved EF, mild MR, small sized pericardial effusion. She returned to emergency department tonight due to dyspnea, productive cough, reports with yellow sputum, also complaining of chest pain. In the ER with diminished air entry, requiring BiPAP. With sinus tachycardia, tachypnea, dyspnea. Started on BiPAP support. Chest x-ray with finding of interval widening of cardiac silhouette possibly presenting worsening pericardial effusion or cardiomegaly. COPD with chronic appearing right greater than left lower lung zone reticulation. D-dimer lower than prior admission 1.18, previously 8. Troponin with mild elevation at baseline. NT proBNP 715. UA with 10-15 WBC, 1+ leukocyte Estrace, 1+ bacteria, 1+ ketones, 15-25 hyaline casts, 2+ protein. Stat echocardiogram is performed in ER with finding of large pericardial effusion with signs of early tamponade. Hospital Course Hospital Course She was urgently taken to [facility], had about 750 mL of serosanguineous fluid drained from the pericardial cavity, follow-up echocardiogram with minimal pericardial effusion residual. IVC normal size with collapsibility. Pericardial fluid sent for studies including culture, fungal and mycobacterial smear, cytology. Mycobacterial and fungal smear still pending. Culture has been negative. Cytology returned with metastatic adenocarcinoma. Discussed w [facility] oncology, PD-L1 test has been added. Suspected primary in the right upper lung with suspected metastatic disease to mediastinal LN, adrenals and pericardium. With treatment of COPD exacerbation, possible pneumonia with Levaquin, breathing treatments, steroid, her breathing gradually improved, she has remained stable on 3 L nasal cannula oxygen. Leukocytosis resolved. Still with mild tachycardia, metoprolol dose has been increased to 50 mg. She is asked to follow-up with oncology and cardiology in office. Due to deconditioning discharged to [facility] facility. She is otherwise also homeless and will need further help with living arrangements after discharge. Please order repeat echo in 3-4 weeks to follow-up pericardial effusion. Antibiotic also covered for for urinary tract infection, urine culture eventually grew Enterococcus aerogenes. Physical Exam Const: COMMON NORMALS: patient oriented x3 and alert GENERAL APPEARANCE: cooperative ORIENTATION/CONSCIOUSNESS: Yes awake HENMT: COMMON NORMALS: oropharynx normal Neck/C-Spine: COMMON NORMALS: no JVD Resp: COMMON NORMALS: normal respiratory effort and clear to auscultation bilaterally AUSCULTATION: clear to auscultation bilaterally Cardio: COMMON NORMALS: no JVD, regular rhythm, S1 normal heart sound present, S2 normal heart sound present and No murmurs present (Cardio) RHYTHM: regular rhythm HEART SOUNDS: S1 normal heart sound present and S2 normal heart sound present GI: COMMON NORMALS: Normal to inspection, nondistended, normoactive bowel sounds present, Soft to palpation and non-tender PALPATION: Yes Soft to palpation Extremity: COMMON NORMALS: no joint enlargement and no pedal edema Neuro: COMMON NORMALS: patient oriented x3 and moves all extremities SENSORIUM/ORIENTATION: Yes alert Skin: COMMON NORMALS: no rashes or lesions noted GENERAL SKIN EXAM: no rashes or lesions noted Discharge Data Studies Completed and Pending Completed Studies During Hospitalization Category Date Time Status CERTIFIED PESTICIDE APPLICATOR request for service Routine Exams 12/03/23 23:06 Completed XR chest 1V portable [id number] Stat Exams 12/03/23 16:09 [place] [id number] Routine Ultrasound 12/04/23 00:44 Completed CV. echo limited [id number] Routine Ultrasound 12/04/23 00:44 Completed CV. echo limited [id number] Routine Ultrasound 12/05/23 08:39 Completed US echo complete [CV. echo complete* [id number]] Stat Ultrasound 12/03/23 17:27 Completed Pending at discharge Category Date Time Status AFB [Mycobacteria, Culture w/Fluor] Routine Lab 12/04/23 02:00 Results Fungal Culture not HR/SK/BL Routine Lab 12/04/23 02:00 Results Miscellaneous Test Routine Lab 12/03/23 23:50 Ordered Radiology Impressions Chest X-Ray 12/03/23 16:09 IMPRESSION: 1. Interval widening of the cardiac silhouette may represent worsened pericardial effusion or cardiomegaly. 2. COPD with similar chronic appearing janim-[id number]-ebhr-left lower lung zone reticulation. No consolidation. Laboratory Results WBC 9.64 10^3/uL (3.29-11.43) 12/09/23 04:41 RBC 5.93 10^6/uL (3.85-5.65) H 12/09/23 04:41 Hgb 16.70 g/dL (11.27-16.99) 12/09/23 04:41 Hct 52.3 % (36-47) H 12/09/23 04:41 MCV 88.2 fl (85-98) 12/09/23 04:41 MCH 28.2 pg (27-33) 12/09/23 04:41 MCHC 31.9 g/dL (30-55) 12/09/23 04:41 RDW 18.0 % (12.1-15.1) H 12/09/23 04:41 Plt Count 435 10^3/cmm (157-399) H 12/09/23 04:41 MPV 9.8 fL (7.4-10.4) 12/09/23 04:41 Neut % (Auto) 94.9 % 12/09/23 04:41 Lymph % (Auto) 3.2 % 12/09/23 04:41 [place] % (Auto) 1.0 % 12/09/23 04:41 Eos % (Auto) 0.1 % 12/09/23 04:41 Baso % (Auto) 0.1 % 12/09/23 04:41 Neut # (Auto) 9.14 10^3/uL (1.8-7.7) H 12/09/23 04:41 Lymph # (Auto) 0.3 10^3/uL (0.8-4.8) L 12/09/23 04:41 [place] # (Auto) 0.1 10^3/uL (0.2-0.9) L 12/09/23 04:41 Eos # (Auto) 0.0 10^3/uL (0.0-0.8) 12/09/23 04:41 Baso # (Auto) 0.0 10^3/uL (0.0-0.1) 12/09/23 04:41 Nucleated RBC % (auto) 0 % 12/09/23 04:41 Nucleated RBCs # 0.0 /100WBC 12/09/23 04:41 D-Dimer 1.18 ug/mLFEU (0-0.59) H 12/03/23 16:35 Specimen Type Arterial 12/03/23 19:58 Sample Site Radial, left 12/03/23 19:58 ABG pH 7.45 (7.35-7.45) 12/03/23 19:58 ABG pCO2 24.6 mmHg (35-45) L 12/03/23 19:58 ABG pO2 156.0 mmHg (80.0-100.0) H 12/03/23 19:58 ABG PO2/FiO2 Ratio 520 12/03/23 19:58 ABG HCO3 17.1 mmol/L (22-26) L 12/03/23 19:58 ABG O2 Saturation 99.3 12/03/23 19:58 ABG Base Excess -5.2 mmol/L (-2.0-2.0) L 12/03/23 19:58 Rito Test Pos 12/03/23 19:58 A-a O2 Gradient 3.1 mmHg (5-10) L 12/03/23 19:58 Hematocrit 41.0 % (37-47) 12/03/23 19:58 Hgb O2 Saturation 97.9 % (95-100) 12/03/23 19:58 Carboxyhemoglobin 0.3 %THgb (0.4-20.1) L 12/03/23 19:58 Methemoglobin 1.2 % (0.4-1.5) 12/03/23 19:58 Total Hemoglobin 13.4 g/dL (12-16) 12/03/23 19:58 Sodium 139.0 mmol/L (131-143) 12/03/23 19:58 Potassium 4.2 mmol/L (3.5-5.0) 12/03/23 19:58 Glucose 123.0 mg/dL (70-115) H 12/03/23 19:58 Ionized Calcium 1.1 mmol/L (1.1-1.4) 12/03/23 19:58 O2 Delivery Device Bipap 12/03/23 19:58 O2 Liters/Min 7.0 % 12/03/23 16:07 FiO2 30.0 % 12/03/23 19:58 Special Warfare Combatant Crewman ID Cl 12/03/23 19:58 Sodium 142 mmol/L (136-145) 12/09/23 04:41 Potassium 4.2 mmol/L (3.5-5.1) 12/09/23 04:41 Chloride 99 mmol/L (98-107) 12/09/23 04:41 Carbon Dioxide 30 mmol/L (22-29) H 12/09/23 04:41 Anion Gap 17.2 (5-19) 12/09/23 04:41 BUN 15 mg/dL (6-20) 12/09/23 04:41 Creatinine 0.7 mg/dL (0.5-0.9) 12/09/23 04:41 GFR Calculation 86.6 mL/min (90-130) L 12/09/23 04:41 Glucose 99 mg/dL (65-115) 12/09/23 04:41 POC Glucose 108 mg/dL (70-110) 12/07/23 15:26 Calculated Osmolality 295 mOsm/kg (285-295) 12/09/23 04:41 Lactic Acid 3.0 mmol/L (0.5-2.2) H 12/03/23 16:35 Lactic Acid (Sepsis) 3.2 mmol/L (0.5-2.2) H 12/03/23 20:32 Calcium 8.7 mg/dL (8.5-10.5) 12/09/23 04:41 Magnesium 2.0 mg/dL (1.7-2.3) 12/08/23 05:00 Total Bilirubin 1.0 mg/dL (0.15-1.2) 12/09/23 04:41 AST 35 U/L (0-32) H 12/09/23 04:41 ALT 90 U/L (0-33) H 12/09/23 04:41 Alkaline Phosphatase 157 U/L (35-105) H 12/09/23 04:41 Creatine Kinase 61 U/L (26-192) 12/03/23 22:42 Troponin T Baseline 13 ng/L (0-10) H 12/03/23 16:35 Troponin T 120 Minute 7.20 ng/L (0-10) 12/03/23 18:10 Delta Troponin T -5.80 ABS# (0-10) L 12/03/23 18:10 Troponin T Hi Sens 6Hr 10.91 ng/L (0-10) H 12/03/23 22:42 Troponin T Hi Sens 6Hr Delta -2.09 ng/L (0-12) L 12/03/23 22:42 NT-Pro-B Natriuret Pep 715 pg/mL (0-125) H 12/03/23 16:35 Total Protein 6.9 g/dL (6.6-8.7) 12/09/23 04:41 Albumin 3.7 g/dL (3.5-5.2) 12/09/23 04:41 Globulin 3.2 g/dL (1.3-4.6) 12/09/23 04:41 Urine Color Dark yellow (Yellow) A 12/03/23 16:48 Urine Appearance Clear (CLEAR) 12/03/23 16:48 Urine pH 6.0 (5-7) 12/03/23 16:48 Ur Specific [place] 1.030 (1.005-1.030) 12/03/23 16:48 Urine Protein 2+ (Negative) A 12/03/23 16:48 Urine Glucose (UA) Trace (Normal) H 12/03/23 16:48 Urine Ketones 1+ (Negative) H 12/03/23 16:48 Urine Blood Negative (Negative) 12/03/23 16:48 Urine Nitrate Negative (Negative) 12/03/23 16:48 Urine Bilirubin Negative (Negative) 12/03/23 16:48 Urine Urobilinogen 1.0 mg/dL (Negative) 12/03/23 16:48 Ur Leukocyte Esterase 1+ (Negative) A 12/03/23 16:48 Urine RBC 5-10 /hpf (0-2) H 12/03/23 16:48 Urine WBC 10-15 /hpf (0-5) H 12/03/23 16:48 Ur Squamous Epith Cells 0-4 /hpf (0-5) H 12/03/23 16:48 Amorphous Sediment Not Reportable 12/03/23 16:48 Urine Bacteria 1+ /hpf (NONE) H 12/03/23 16:48 Hyaline Casts 15-25 /lpf H 12/03/23 16:48 Other Casts Wbc cast /lpf 12/03/23 16:48 Urine Mucus 1+ /hpf 12/03/23 16:48 Pericard Color Red (Pale Yellow) 12/03/23 23:50 Pericard Appearance Turbid (Clear) 12/03/23 23:50 Pericard WBC 1270 /uL 12/03/23 23:50 Pericard RBC 34 10^3/uL 12/03/23 23:50 Pericar Polynuclear WBC 0.836 10^3/uL 12/03/23 23:50 Pericar Polynuc WBCs % 65.800 % 12/03/23 23:50 Peric Mononuc WBCs % 34.200 % 12/03/23 23:50 Peric Mononuc WBC #Auto 0.434 10^3/uL 12/03/23 23:50 Adenovirus (PCR) Not detected (NOT DETECT) 12/04/23 02:50 C. pneumoniae DNA (PCR) Not detected (NOT DETECT) 12/04/23 02:50 Coronavirus 229E (PCR) Not detected (NOT DETECT) 12/04/23 02:50 Human Metapneumovir PCR Not detected (NOT DETECT) 12/04/23 02:50 Influenza A (H1) PCR Not detected (NOT DETECT) 12/04/23 02:50 Influ A (H1/09) PCR Not detected (NOT DETECT) 12/04/23 02:50 Influenza A (H3) PCR Not detected (NOT DETECT) 12/04/23 02:50 Influenza Type A (PCR) Not detected (NOT DETECT) 12/04/23 02:50 Influenza Type B (PCR) Not detected (NOT DETECT) 12/04/23 02:50 M. pneumoniae (PCR) Not detected (NOT DETECT) 12/04/23 02:50 Parainfluenza 1 (PCR) Not detected (NOT DETECT) 12/04/23 02:50 Parainfluenza 2 (PCR) Not detected (NOT DETECT) 12/04/23 02:50 Parainfluenza 3 (PCR) Not detected (NOT DETECT) 12/04/23 02:50 Parainfluenza 4 (PCR) Not detected (NOT DETECT) 12/04/23 02:50 RSV Type A (PCR) Not detected (NOT DETECT) 12/04/23 02:50 RSV Type B (PCR) Not detected (NOT DETECT) 12/04/23 02:50 Entero/Rhino (PCR) Not detected (NOT DETECT) 12/04/23 02:50 SARS-CoV-2 (PCR) Not detected (NOT DETECT) 12/04/23 02:50 MRSA (PCR) Not detected (NOT DETECTED) 12/04/23 02:30 Misc Test Reference Cancelled 12/03/23 23:50 Vitals Last Vital Signs Temp 98.2 F 12/09/23 16:26 Pulse 103 H 12/09/23 16:26 Resp 15 12/09/23 16:26 BP 121/84 12/09/23 16:26 Pulse Ox 93 12/09/23 16:26 O2 Del Method Room Air 12/09/23 16:02 O2 Flow Rate 3 12/09/23 12:57 FiO2 3 12/04/23 16:30 Discharge Plan Discharge Patient Disposition: Xfer SNF Condition: Stable Prescriptions: New levofloxacin 750 mg tablet 750 mg PO DAILY 7 Days Qty: 7 0RF linezolid 600 mg tablet 600 mg PO Q12H Qty: 14 0RF prednisone 10 mg Tablet 10 mg PO DAILY Qty: 4 0RF guaifenesin 100 mg/5 mL Liquid 400 mg PO Q4H PRN (Reason: Cough) Qty: 473 0RF folic acid 1 mg Tablet 1 mg PO DAILY Qty: 90 0RF Vitamin B-1 (mononitrate) 100 mg Tablet 100 mg PO DAILY Qty: 90 0RF Thera 400 mcg Tablet 1 tab PO DAILY Qty: 90 0RF alprazolam 0.5 mg Tablet 0.5 mg PO TID PRN (Reason: Anxiety) Qty: 10 0RF Continued clopidogrel 75 mg Tablet 75 mg PO DAILY Qty: 21 0RF amlodipine [Norvasc] 5 mg tablet 5 mg PO BID Qty: 60 0RF losartan 50 mg Tablet 50 mg PO DAILY atorvastatin 40 mg Tablet 40 mg PO BEDTIME ipratropium-albuterol 0.5 mg-3 mg(2.5 mg base)/3 mL Solution For Nebulization 3 ml INHALATION Q4H PRN (Reason: Shortness Of Breath) albuterol sulfate [Ventolin HFA] 90 mcg/actuation Hfa Aerosol Inhaler 2 puff INHALATION Q6H PRN (Reason: Shortness Of Breath) varenicline [Chantix] 1 mg Tablet 1 mg PO BID Anoro Ellipta 62.5-25 mcg/actuation Blister With Device 1 inh INHALATION DAILY pantoprazole [Protonix] 40 mg tablet,delayed release (DR/EC) 40 mg PO DAILY Qty: 30 0RF Changed metoprolol tartrate 25 mg Tablet 50 mg PO BID@0900,2100 Qty: 60 0RF Discharge Orders: Discharge Order (Routine); Ordered 12/09/23 Ordered By: Rafael Leal Referrals: Primary, provider [Other] - 4-7 days Kory Corral M.D [Physician] - 12/17/23 2:00 pm () Albert Field MD [Hospitalist] - 1 week (We have notified your physician's clinic of the need for a follow-up appointment to be scheduled. If you have not heard from them within the next 2 business days, please call them directly. ) Activity Restrictions/Additional Instructions: Continue oxygen at 2 L/min. Completed short course of prednisone and complete antibiotic for COPD exacerbation, possible pneumonia. Follow-up with oncology for further assessment and to discuss regarding finding of metastatic cancer, with finding of adenocarcinoma in pericardial fluid. Discuss with your primary doctor referral for repeat echocardiogram in 3 to 4 weeks. Follow-up with cardiology in office with results. Discharge Attestations Time Spent in Discharge Care*: greater than 30 min Quality Metrics Clinical Quality Measures [ No reported AMI, CVA or VTE this stay] Coding Level of Care Code 34053 Total time (in minutes) for Discharge: 50 Diagnoses Pericardial effusion I31.39 COPD (chronic obstructive pulmonary disease) J44.9
[2023-12-11 12:34] LABS: PD-L1 (Clone 22C3) by IHC BBPL See Report
== END 2023-12-09 16:26 | disposition intermediate care facility (04) | DRG 189 ==
LOC: ER 17:39 → ICU 22:46 → MEDSURG 12-06 17:34
PROVIDERS: Internal Medicine; Admitting Provider Internal Medicine; Emergency Provider Family Medicine; Visit Provider Internal Medicine
PROC: 0W9D3ZX Drainage of Pericardial Cavity, Percutaneous Approach, Diagnostic (ICD-10-PCS; principal; 2023-12-03 23:30)
DX: J96.21 Acute and chronic respiratory failure with hypoxia (principal); J18.9 Pneumonia, unspecified organism; C79.9 Secondary malignant neoplasm of unspecified site; I31.31 Malignant pericardial effusion in diseases classified elsewhere; I31.4 Cardiac tamponade; N39.0 Urinary tract infection, site not specified; J44.1 Chronic obstructive pulmonary disease with (acute) exacerbation; Z59.01 Sheltered homelessness; R91.8 Other nonspecific abnormal finding of lung field; B95.2 Enterococcus as the cause of diseases classified elsewhere; I10 Essential (primary) hypertension; F17.210 Nicotine dependence, cigarettes, uncomplicated; F10.20 Alcohol dependence, uncomplicated; J43.9 Emphysema, unspecified; R74.01 Elevation of levels of liver transaminase levels; F41.9 Anxiety disorder, unspecified; Z86.73 Personal history of transient ischemic attack (TIA), and cerebral infarction without residual deficits
CPT/HCPCS: 33016; 36415; 36416; 36600; 71045; 80051; 80053; 80503; 81003; 81015; 82330; 82550; 82805; 82962; 83605; 83735; 83880; 84484; 85025; 85378; 87015; 87040; 87070; 87075; 87077; 87086; 87102; 87116; 87186; 87205; 87206; 87486; 87581; 87633; 87641; 87801; 88112; 88305; 88341; 88342; 89050; 93005; 93306; 93308; 93970; 94640; 94660; 94664; 96365; 96372; 96374; 96375; 96376; 99152; 99153; 99291; C1729; C1769; C1887; J1644; J1650; J1956; J2250; J2270; J2405; J2919; J3010; J3411; J3490; J7030; J7512

== ENCOUNTER 2023-12-17 14:35 | Inpatient (IN) | payer MEDICAID, SELFPAY ==
[2023-12-17] VITALS (21 sets, daily range): BP systolic 80–123; BP diastolic 53–87; PULSE 81–121; RESP 16–28; TEMP 36.5–36.8; O2SAT 94–99; BMI 21.5
--- NOTE | 2023-12-17 14:38 | XR_ITS ---
WS: [id number] Examination: XR chest 1V portable [id number] Reason for Exam: dyspnea/cough Date: 12/17/2023 Comparison: 12/03/2023 Findings: The heart is normal in size. The mediastinum is not widened on this rotated film. The lungs are hyperinflated. Chronic changes are present There is no failure or effusion The dominant right-sided opacities persist. The known right lung mass is better visualized on CT XR/XR chest 1V portable [id number] Impression: Continued right-sided infiltrate with chronic obstructive change. The right gabino g mass is better defined by CT.
--- NOTE | 2023-12-17 14:43 | ECG_ITS ---
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 Measurements Intervals [place] Rate: 106 P: 66 IA: 124 QRS: 81 QRSD: 74 T: 91 QT: 341 QTc: 455 Interpretive Statements SINUS TACHYCARDIA Compared to ECG 12/07/2023 00:37:59 Short IA interval no longer present T-wave abnormality no longer present Electronically Signed On 12-17-2023 14:55:42 CDT by Kory Corral M.D. [id number]
[2023-12-17 15:02] LABS: Basophils # 0.1 10^3/uL (0.0-0.1); Basophils % 0.2 %; Eosinophils # 0.1 10^3/uL (0.0-0.8); Eosinophils % 0.3 %; Hematocrit 46.7 % (36-47); Lymphocytes # 1.3 10^3/uL (0.8-4.8); Lymphocytes % 6.1 %; Mean Corpuscular HGB Conc 32.5 g/dL (30-55); Mean Corpuscular Hemoglobin 28.6 pg (27-33); Mean Corpuscular Volume 87.8 fl (85-98); Mean Platelet Volume 8.9 fL (7.4-10.4); Monocytes % 4.6 %; Neutrophils # 18.72 10^3/uL (1.8-7.7); Neutrophils % 87.6 %; Nucleated Red Blood Cells % 0 %; Platelet Count 580 10^3/cmm (157-399); Red Blood Count 5.32 10^6/uL (3.85-5.65); Red Cell Distribution Width 17.2 % (12.1-15.1); White Blood Count 21.39 10^3/uL (3.29-11.43)
[2023-12-17 15:23] LABS: Alanine Aminotransferase 50 U/L (0-33); Albumin Level 3.7 g/dL (3.5-5.2); Alkaline Phosphatase 160 U/L (35-105); Anion Gap 20.3 (5-19); Aspartate Amino Transferase 25 U/L (0-32); Blood Urea Nitrogen 18 mg/dL (6-20); Calcium 9.6 mg/dL (8.5-10.5); Carbon Dioxide 21 mmol/L (22-29); Chloride 101 mmol/L (98-107); Creatinine Clr Calc Pharmacy 66.1867; Globulin 3.3 g/dL (1.3-4.6); Glomerular Filtration Rate 86.6 mL/min (90-130); Glucose 97 mg/dL (65-115); Osmolality Calculated 288 mOsm/kg (285-295); Potassium 4.3 mmol/L (3.5-5.1); Sodium 138 mmol/L (136-145); Total Bilirubin 1.8 mg/dL (0.15-1.2)
--- NOTE | 2023-12-17 15:36 | ED_ITS ---
Documented by User: Chan Vaughan DO 12/18/23 06:05 HPI - Weakness 2 General: Chief complaint: Weakness Stated complaint: rapid Time Seen by Provider: 12/17/23 14:37 History of Present Illness: 58-year-old female presents emergency ro om after rapid response while she was at the [facility]. She had recently been seen here with pericardial effusion she has a history of known lung cancer. She had pericardiocentesis done she is currently at a skilled nursing. She has some vague aching in her chest which is been present since pericardiocentesis that has not changed significantly. She also has a history of COPD. Reported blood pressure of 69 systolic at the last office at the time of the rapid response. She was discharged home on prednisone for 4 days she has completed that. She is also on levofloxacin. Associated symptoms: Denies chest pain, chills, dysuria or fever(s) Review of Systems 2 Const: Reports: fatigue and malaise; Denies: fever(s) or chills Card: Denies: chest pain Resp: Denies: dyspnea GI: Denies: abdominal pain : Denies: dysuria, urinary frequency or urinary urgency Musc: Denies: neck pain or back pain Skin/Breast: Denies: rash PFSH ED 2 PFSH: Medical History (Updated 12/17/23 @ 21:39 by Xavi Zaragoza DO) Pneumonia Hypertension HTN (hypertension) with goal to be determined COPD (chronic obstructive pulmonary disease) Hirsutism Alcohol intoxication Brain TIA Social History Smoking and tobacco/nicotine status: current every day tobacco/nicotine user cigarettes Alcohol intake: former Former alcohol use details: States she is quit, has not had any alcohol since last admission. Substance/Drug Use: current Substance/Drug use frequency: other Other substance/drug use details: Rare Physical Exam 2 Const: GENERAL APPEARANCE: cooperative ORIENTATION/CONSCIOUSNESS: Yes awake, Yes oriented to person, Yes oriented to place and Yes oriented to time HENMT: COMMON NORMALS: normocephalic, atraumatic and hearing grossly normal bilaterally HEAD & SCALP: normocephalic and atraumatic Resp: COMMON NORMALS: normal respiratory effort, No retractions, No use of accessory muscles and clear to auscultation bilaterally AUSCULTATION: clear to auscultation bilaterally Cardio: COMMON NORMALS: regular rate, regular rhythm and No murmurs present (Cardio) RATE: regular rate RHYTHM: regular rhythm GI: COMMON NORMALS: Soft to palpation and No hepatosplenomegaly present A USCULTATION: Yes normoactive bowel sounds PALPATION: Yes Soft to palpation, No Tenderness to palpation present (GI), No Guarding due to palpation present (GI) and Yes No hepatosplenomegaly present Extremity: COMMON NORMALS: normal to inspection, capillary refill normal, no clubbing, cyanosis or edema, no calf tenderness and no pedal edema Neuro: SENSORIUM/ORIENTATION: Yes oriented to person, Yes oriented to place and Yes oriented to time Skin: COMMON NORMALS: no rashes or lesions noted GENERAL SKIN EXAM: no rashes or lesions noted Course 2 Vital Signs: Vital signs: Vital Signs Temperature 97.7 F 12/17/23 22:25 Pulse Rate 118 H 12/18/23 04:36 Respiratory Rate 24 H 12/18/23 04:36 Blood Pressure 88/69 12/18/23 04:15 Pulse Oximetry 95 12/18/23 04:36 Oxygen Delivery Me thod Nasal Cannula 12/18/23 04:28 Oxygen Flow Rate 1.5 12/18/23 04:28 [facility] - Weakness Medical Decision Making Care signed out to Dr. Zaragoza at change of shift. See final notes for diagnosis and disposition. Lab Data 12/18/23 02:31 12/18/23 02:31 Radiology Impressions Chest X-Ray 12/17/23 14:38 Impression: Continued right-sided infiltrate with chronic obstructive change. The right lung mass is better defined by CT. Chest/Abdomen/Pelvis CTA 12/17/23 16:58 IMPRESSION: 1. Large simple pericardial effusion is increased in size since 10/26/2023. 2. Equivocal findings for cardiac tamponade including contrast reflux into the IVC and hepatic veins, interval dilation of the IVC, and ventricular decompression. 3. No pulmonary embolism. 4. Mild aortic atherosclerotic disease. No aneurysm or dissection. 5. Patent visceral arteries. 6. Mild stenosis in bilateral iliac arteries. 7. 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 8. Masslike focal consolidation in the right upper lobe associated with extensive central and lower lung predominant peribronchovascular consolidation, bronchial wall thickening and abnormal soft tissue thickening in the right timur. Differential diagnosis includes infection and malignancy with lymphangitic carcinomatosis. Consolidation is progressive in the right lower lobe. Right upper lobe masslike consolidation is stable. 9. 3.8 cm left adrenal mass, stable since 10/26/2023, suspicious for metastasis. Adrenal adenoma not excluded. Non-emergent adrenal CT is recommended. (Reference: Douglas) 10. Severe centrilobular emphysema. 11. Mildly enlarged right hilar lymph nodes may be reactive or neoplastic. 12. Stool distended colon. No sign of inflammation. This finding would support a clinical diagnosis of constipation. 13. Incidental findings above. REFERENCES: Douglas PANTOJA, et al. Management of Incidental Adrenal Masses: A White Paper of the ACR Incidental Findings Committee. J Am Lydia Radiol. 2017;14(8):1761-2103. ADDENDUM: 12/17/23 1906 THIS REPORT CONTAINS FINDINGS THAT MAY BE CRITICAL TO PATIENT CARE. The findings and recommendations were personally verbally communicated via telephone conference with Dr ZARAGOZA at 7:03 PM CDT on 12/17/2023. The findings were acknowledged and understood. Laboratory Results WBC 21.39 10^3/uL (3.29-11.43) H 12/17/23 14:56 RBC 5.32 10^6/uL (3.85-5.65) 12/17/23 14:56 Hgb 15.20 g/dL (11.27-16.99) 12/17/23 14:56 Hct 46.7 % (36-47) 12/17/23 14:56 MCV 87.8 fl (85-98) 12/17/23 14:56 MCH 28.6 pg (27-33) 12/17/23 14:56 MCHC 32.5 g/dL (30-55) 12/17/23 14:56 RDW 17.2 % (12.1-15.1) H 12/17/23 14:56 Plt Count 580 10^3/cmm (157-399) H 12/17/23 14:56 MPV 8.9 fL (7.4-10.4) 12/17/23 14:56 Neut % (Auto) 87.6 % 12/17/23 14:56 Lymph % (Auto) 6.1 % 12/17/23 14:56 Dewitt % (Auto) 4.6 % 12/17/23 14:56 Eos % (Auto) 0.3 % 12/17/23 14:56 Baso % (Auto) 0.2 % 12/17/23 14:56 Neut # (Auto) 18.72 10^3/uL (1.8-7.7) H 12/17/23 14:56 Lymph # (Auto) 1.3 10^3/uL (0.8-4.8) 12/17/23 14:56 Dewitt # (Auto) 1.0 10^3/uL (0.2-0.9) H 12/17/23 14:56 Eos # (Auto) 0.1 10^3/uL (0.0-0.8) 12/17/23 14:56 Baso # (Auto) 0.1 10^3/uL (0.0-0.1) 12/17/23 14:56 Nucleated RBC % (auto) 0 % 12/17/23 14:56 Nucleated RBCs # 0.0 /100WBC 12/17/23 14:56 PT 13.40 SECONDS (12.1-14.9) 12/17/23 21:40 INR 0.99 (0.8-1.2) 12/17/23 21:40 Sodium 138 mmol/L (136-145) 12/17/23 14:56 Potassium 4.3 mmol/L (3.5-5.1) 12/17/23 14:56 Chloride 101 mmol/L (98-107) 12/17/23 14:56 Carbon Dioxide 21 mmol/L (22-29) L 12/17/23 14:56 Anion Gap 20.3 (5-19) H 12/17/23 14:56 BUN 18 mg/dL (6-20) 12/17/23 14:56 Creatinine 0.7 mg/dL (0.5-0.9) 12/17/23 14:56 GFR Calculation 86.6 mL/min (90-130) L 12/17/23 14:56 Glucose 97 mg/dL (65-115) 12/17/23 14:56 Calculated Osmolality 288 mOsm/kg (285-295) 12/17/23 14:56 Lactic Acid 1.7 mmol/L (0.5-2.2) 12/17/23 17:23 Calcium 9.6 mg/dL (8.5-10.5) 12/17/23 14:56 Total Bilirubin 1.8 mg/dL (0.15-1.2) H 12/17/23 14:56 AST 25 U/L (0-32) 12/17/23 14:56 ALT 50 U/L (0-33) H 12/17/23 14:56 Alkaline Phosphatase 160 U/L (35-105) H 12/17/23 14:56 C-Reactive Protein 22.6 mg/L (0.0-4.9) H 12/17/23 21:40 NT-Pro-B Natriuret Pep 1201 pg/mL (0-125) H 12/17/23 21:40 Total Protein 7.0 g/dL (6.6-8.7) 12/17/23 14:56 Albumin 3.7 g/dL (3.5-5.2) 12/17/23 14:56 Globulin 3.3 g/dL (1.3-4.6) 12/17/23 14:56 TSH 1.03 uIU/mL (0.27-4.20) 12/17/23 21:40 Urine Color Dark yellow (Yellow) A 12/17/23 17:21 Urine Appearance Clear (CLEAR) 12/17/23 17:21 Urine pH 5.5 (5-7) 12/17/23 17:21 Ur Specific [place] 1.032 (1.005-1.030) H 12/17/23 17:21 Urine Protein Trace (Negative) A 12/17/23 17:21 Urine Glucose (UA) Negative (Normal) 12/17/23 17:21 Urine Ketones Trace (Negative) 12/17/23 17:21 Urine Blood Negative (Negative) 12/17/23 17:21 Urine Nitrate Negative (Negative) 12/17/23 17:21 Urine Bilirubin 1+ (Negative) H 12/17/23 17:21 Urine Urobilinogen 1.0 mg/dL (Negative) 12/17/23 17:21 Ur Leukocyte Esterase Negative (Negative) 12/17/23 17:21 Urine RBC 0-4 /hpf (0-2) H 12/17/23 17:21 Urine WBC 0-4 /hpf (0-5) H 12/17/23 17:21 Ur Squamous Epith Cells None /hpf (0-5) 12/17/23 17:21 Amorphous Sediment Not Reportable 12/17/23 17:21 Urine Bacteria None /hpf (NONE) 12/17/23 17:21 Urine Mucus 2+ /hpf 12/17/23 17:21 Discharge Plan Discharge Patient Disposition: Admitted As Inpatient Admit Provider: Dez Erwin Clinical Impression: Malignant pericardial effusion, Acute hypotension, Tachycardia Condition: Stable Coding Level of Care Code ED Feeder Associate for Chg Fwd Related Data Home Medications Medication Instructions Recorded Confirmed albuterol sulfate 90 mcg/actuation 2 puff inhalation Q6H PRN 10/26/23 12/17/23 aerosol inhaler (Ventolin HFA) Shortness Of Breath atorvastatin 40 mg tablet 40 mg PO BEDTIME 10/26/23 12/17/23 ipratropium 0.5 mg-albuterol 3 mg 3 ml inhalation Q4H PRN Shortness 10/26/23 12/17/23 (2.5 mg base)/3 mL nebulization Of Breath soln losartan 50 mg tablet 50 mg PO DAILY 10/26/23 12/17/23 umeclidinium 62.5 mcg-vilanterol 1 inh inhalation DAILY 10/26/23 12/17/23 25 mcg/actuation powdr for inhalation (Anoro Ellipta) varenicline 1 mg tablet (Chantix) 1 mg PO BID 10/26/23 12/17/23 Previous Rx's Medication Instructions Recorded amlodipine 5 mg tablet (Norvasc) 5 mg PO BID #60 tabs 09/07/23 clopidogrel 75 mg tablet 75 mg PO DAILY #21 tabs 09/07/23 pantoprazole 40 mg tablet,delayed 40 mg PO DAILY #30 tabs 10/28/23 release (Protonix) alprazolam 0.5 mg tablet 0.5 mg PO TID PRN Anxiety #10 tabs 12/09/23 folic acid 1 mg tablet 1 mg PO DAILY #90 tabs 12/09/23 guaifenesin 100 mg/5 mL oral liquid 400 mg (20 mL) PO Q4H PRN Cough 12/09/23 #473 mL linezolid 600 mg tablet 600 mg PO Q12H #14 tabs 12/09/23 metoprolol tartrate 25 mg tablet 50 mg (2 x 25 mg) PO BID@0900,2100 12/09/23 #60 tabs multivitamin with folic acid 400 1 tab PO DAILY #90 tabs 12/09/23 mcg tablet (Thera) prednisone 10 mg tablet 10 mg PO DAILY #4 tabs 12/09/23 thiamine mononitrate (vit B1) 100 100 mg PO DAILY #90 tabs 12/09/23 mg tablet (Vitamin B-1 (mononitrate)) Allergies Allergy/AdvReac Type Severity Reaction Status Date / Time No Known Allergies Allergy Verified 12/17/23 14:23 Documented by User: Xavi Zaragoza DO 12/18/23 00:28 HPI - Weakness 2 General: Chief complaint: Weakness Stated complaint: rapid Time Seen by Provider: 12/17/23 14:37 PFSH ED 2 PFSH: Medical History (Updated 12/17/23 @ 21:39 by Xavi Zaragoza DO) Pneumonia Hypertension HTN (hypertension) with goal to be determined COPD (chronic obstructive pulmonary disease) Hirsutism Alcohol intoxication Brain TIA Social History Smoking and tobacco/nicotine status: current every day tobacco/nicotine user cigarettes Alcohol intake: former Former alcohol use details: States she is quit, has not had any alcohol since last admission. Substance/Drug Use: current Substance/Drug use frequency: other Other substance/drug use details: Rare Course 2 Vital Signs: Vital signs: Vital Signs Temperature 97.7 F 12/17/23 22:25 Pulse Rate 118 H 12/18/23 04:36 Respiratory Rate 24 H 12/18/23 04:36 Blood Pressure 88/69 12/18/23 04:15 Pulse Oximetry 95 12/18/23 04:36 Oxygen Delivery Me thod Nasal Cannula 12/18/23 04:28 Oxygen Flow Rate 1.5 12/18/23 04:28 MDM - Weakness Medical Decision Making Care signed out to Dr. Zaragoza at change of shift. See final notes for diagnosis and disposition. Discussed patient with Dr. Huston, he wanted to do a stat echo, he was down to evaluate the patient. He says there is not a cardiac tamponade however there is an effusion he was replaced in the ICU aggressive fluid therapy and reevaluate in the morning for potential cardiac window Lab Data 12/18/23 02:31 12/18/23 02:31 Radiology Impressions Chest X-Ray 12/17/23 14:38 Impression: Continued right-sided infiltrate with chronic obstructive change. The right lung mass is better defined by CT. Chest/Abdomen/Pelvis CTA 12/17/23 16:58 IMPRESSION: 1. Large simple pericardial effusion is increased in size since 10/26/2023. 2. Equivocal findings for cardiac tamponade including contrast reflux into the IVC and hepatic veins, interval dilation of the IVC, and ventricular decompression. 3. No pulmonary embolism. 4. Mild aortic atherosclerotic disease. No aneurysm or dissection. 5. Patent visceral arteries. 6. Mild stenosis in bilateral iliac arteries. 7. 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 8. Masslike focal consolidation in the right upper lobe associated with extensive central and lower lung predominant peribronchovascular consolidation, bronchial wall thickening and abnormal soft tissue thickening in the right timur. Differential diagnosis includes infection and malignancy with lymphangitic carcinomatosis. Consolidation is progressive in the right lower lobe. Right upper lobe masslike consolidation is stable. 9. 3.8 cm left adrenal mass, stable since 10/26/2023, suspicious for metastasis. Adrenal adenoma not excluded. Non-emergent adrenal CT is recommended. (Reference: Douglas) 10. Severe centrilobular emphysema. 11. Mildly enlarged right hilar lymph nodes may be reactive or neoplastic. 12. Stool distended colon. No sign of inflammation. This finding would support a clinical diagnosis of constipation. 13. Incidental findings above. REFERENCES: Douglas PANTOJA, et al. Management of Incidental Adrenal Masses: A White Paper of the ACR Incidental Findings Committee. J Am Lydia Radiol. 2017;14(8):1170-4571. ADDENDUM: 12/17/23 1906 THIS REPORT CONTAINS FINDINGS THAT MAY BE CRITICAL TO PATIENT CARE. The findings and recommendations were personally verbally communicated via telephone conference with Dr ZARAGOZA at 7:03 PM CDT on 12/17/2023. The findings were acknowledged and understood. Laboratory Results WBC 21.39 10^3/uL (3.29-11.43) H 12/17/23 14:56 RBC 5.32 10^6/uL (3.85-5.65) 12/17/23 14:56 Hgb 15.20 g/dL (11.27-16.99) 12/17/23 14:56 Hct 46.7 % (36-47) 12/17/23 14:56 MCV 87.8 fl (85-98) 12/17/23 14:56 MCH 28.6 pg (27-33) 12/17/23 14:56 MCHC 32.5 g/dL (30-55) 12/17/23 14:56 RDW 17.2 % (12.1-15.1) H 12/17/23 14:56 Plt Count 580 10^3/cmm (157-399) H 12/17/23 14:56 MPV 8.9 fL (7.4-10.4) 12/17/23 14:56 Neut % (Auto) 87.6 % 12/17/23 14:56 Lymph % (Auto) 6.1 % 12/17/23 14:56 Dewitt % (Auto) 4.6 % 12/17/23 14:56 Eos % (Auto) 0.3 % 12/17/23 14:56 Baso % (Auto) 0.2 % 12/17/23 14:56 Neut # (Auto) 18.72 10^3/uL (1.8-7.7) H 12/17/23 14:56 Lymph # (Auto) 1.3 10^3/uL (0.8-4.8) 12/17/23 14:56 Dewitt # (Auto) 1.0 10^3/uL (0.2-0.9) H 12/17/23 14:56 Eos # (Auto) 0.1 10^3/uL (0.0-0.8) 12/17/23 14:56 Baso # (Auto) 0.1 10^3/uL (0.0-0.1) 12/17/23 14:56 Nucleated RBC % (auto) 0 % 12/17/23 14:56 Nucleated RBCs # 0.0 /100WBC 12/17/23 14:56 PT 13.40 SECONDS (12.1-14.9) 12/17/23 21:40 INR 0.99 (0.8-1.2) 12/17/23 21:40 Sodium 138 mmol/L (136-145) 12/17/23 14:56 Potassium 4.3 mmol/L (3.5-5.1) 12/17/23 14:56 Chloride 101 mmol/L (98-107) 12/17/23 14:56 Carbon Dioxide 21 mmol/L (22-29) L 12/17/23 14:56 Anion Gap 20.3 (5-19) H 12/17/23 14:56 BUN 18 mg/dL (6-20) 12/17/23 14:56 Creatinine 0.7 mg/dL (0.5-0.9) 12/17/23 14:56 GFR Calculation 86.6 mL/min (90-130) L 12/17/23 14:56 Glucose 97 mg/dL (65-115) 12/17/23 14:56 Calculated Osmolality 288 mOsm/kg (285-295) 12/17/23 14:56 Lactic Acid 1.7 mmol/L (0.5-2.2) 12/17/23 17:23 Calcium 9.6 mg/dL (8.5-10.5) 12/17/23 14:56 Total Bilirubin 1.8 mg/dL (0.15-1.2) H 12/17/23 14:56 AST 25 U/L (0-32) 12/17/23 14:56 ALT 50 U/L (0-33) H 12/17/23 14:56 Alkaline Phosphatase 160 U/L (35-105) H 12/17/23 14:56 C-Reactive Protein 22.6 mg/L (0.0-4.9) H 12/17/23 21:40 NT-Pro-B Natriuret Pep 1201 pg/mL (0-125) H 12/17/23 21:40 Total Protein 7.0 g/dL (6.6-8.7) 12/17/23 14:56 Albumin 3.7 g/dL (3.5-5.2) 12/17/23 14:56 Globulin 3.3 g/dL (1.3-4.6) 12/17/23 14:56 TSH 1.03 uIU/mL (0.27-4.20) 12/17/23 21:40 Urine Color Dark yellow (Yellow) A 12/17/23 17:21 Urine Appearance Clear (CLEAR) 12/17/23 17:21 Urine pH 5.5 (5-7) 12/17/23 17:21 Ur Specific [place] 1.032 (1.005-1.030) H 12/17/23 17:21 Urine Protein Trace (Negative) A 12/17/23 17:21 Urine Glucose (UA) Negative (Normal) 12/17/23 17:21 Urine Ketones Trace (Negative) 12/17/23 17:21 Urine Blood Negative (Negative) 12/17/23 17:21 Urine Nitrate Negative (Negative) 12/17/23 17:21 Urine Bilirubin 1+ (Negative) H 12/17/23 17:21 Urine Urobilinogen 1.0 mg/dL (Negative) 12/17/23 17:21 Ur Leukocyte Esterase Negative (Negative) 12/17/23 17:21 Urine RBC 0-4 /hpf (0-2) H 12/17/23 17:21 Urine WBC 0-4 /hpf (0-5) H 12/17/23 17:21 Ur Squamous Epith Cells None /hpf (0-5) 12/17/23 17:21 Amorphous Sediment Not Reportable 12/17/23 17:21 Urine Bacteria None /hpf (NONE) 12/17/23 17:21 Urine Mucus 2+ /hpf 12/17/23 17:21 All radiology interpretation(s) finalized by discharge Discharge Plan Discharge Patient Disposition: Admitted As Inpatient Admit Provider: Dez Erwin Clinical Impression: Malignant pericardial effusion, Acute hypotension, Tachycardia Condition: Stable Coding Level of Care Code ED Feeder Associate for Chg Fwd Related Data Home Medications Medication Instructions Recorded Confirmed albuterol sulfate 90 mcg/actuation 2 puff inhalation Q6H PRN 10/26/23 12/17/23 aerosol inhaler (Ventolin HFA) Shortness Of Breath atorvastatin 40 mg tablet 40 mg PO BEDTIME 10/26/23 12/17/23 ipratropium 0.5 mg-albuterol 3 mg 3 ml inhalation Q4H PRN Shortness 10/26/23 12/17/23 (2.5 mg base)/3 mL nebulization Of Breath soln losartan 50 mg tablet 50 mg PO DAILY 10/26/23 12/17/23 umeclidinium 62.5 mcg-vilanterol 1 inh inhalation DAILY 10/26/23 12/17/23 25 mcg/actuation powdr for inhalation (Anoro Ellipta) varenicline 1 mg tablet (Chantix) 1 mg PO BID 10/26/23 12/17/23 Previous Rx's Medication Instructions Recorded amlodipine 5 mg tablet (Norvasc) 5 mg PO BID #60 tabs 09/07/23 clopidogrel 75 mg tablet 75 mg PO DAILY #21 tabs 09/07/23 pantoprazole 40 mg tablet,delayed 40 mg PO DAILY #30 tabs 10/28/23 release (Protonix) alprazolam 0.5 mg tablet 0.5 mg PO TID PRN Anxiety #10 tabs 12/09/23 folic acid 1 mg tablet 1 mg PO DAILY #90 tabs 12/09/23 guaifenesin 100 mg/5 mL oral liquid 400 mg (20 mL) PO Q4H PRN Cough 12/09/23 #473 mL linezolid 600 mg tablet 600 mg PO Q12H #14 tabs 12/09/23 metoprolol tartrate 25 mg tablet 50 mg (2 x 25 mg) PO BID@0900,2100 12/09/23 #60 tabs multivitamin with folic acid 400 1 tab PO DAILY #90 tabs 12/09/23 mcg tablet (Thera) prednisone 10 mg tablet 10 mg PO DAILY #4 tabs 12/09/23 thiamine mononitrate (vit B1) 100 100 mg PO DAILY #90 tabs 12/09/23 mg tablet (Vitamin B-1 (mononitrate)) Allergies Allergy/AdvReac Type Severity Reaction Status Date / Time No Known Allergies Allergy Verified 12/17/23 14:23
[2023-12-17] MEDS: sodium chloride 0.9% 500 ML 999 ML IV (16:00)
[2023-12-17] MEDS: acetaminophen 500 mg Tablet 1000 MG PO (16:01)
--- NOTE | 2023-12-17 16:58 | CTR_ITS ---
PROCEDURE INFORMATION: Exam: CTA Chest With Contrast CTA Abdomen and Pelvis With Contrast Exam date and time: 12/17/2023 5:46 PM Age: 58 years old Clinical indication: Other: See exam info; Additional info: Leukocytis, elevated t bili, syncope, hypotension TECHNIQUE: Imaging protocol: Computed tomographic angiography of the chest with contrast. Exam focused on the arteries. Computed tomographic angiography of the abdomen and pelvis with contrast. Exam focused on the arteries. 3D rendering (Not supervised by radiologist): MIP and/or 3D reconstructed images were created by the technologist. Radiation optimization: All CT scans at this facility use at least one of these dose optimization techniques: automated exposure control; mA and/or kV adjustment per patient size (includes targeted exams where dose is matched to clinical indication); or iterative reconstruction. Contrast material: OMNI 350; Contrast volume: 90 ml; Contrast route: INTRAVENOUS (IV); COMPARISON: CT angio chest PE protcl [id number] 10/26/2023 3:11 PM RADIATION DOSE METRICS: Total DLP (mGy-cm): 361 FINDINGS: VASCULATURE: Pulmonary arteries: The pulmonary arteries are adequately opacified for evaluation to the subsegmental level. There is no filling defect to suggest embolism. Aorta: Mild smooth noncalcific plaque in the thoracic aorta without aneurysm or luminal narrowing or aneurysm. Mild calcific and noncalcific plaque in the abdominal aorta without significant luminal narrowing or aneurysm. Celiac trunk and mesenteric arteries: Less than 50% stenosis at the origin of the superior mesenteric artery. No stenosis at the celiac artery origin. Inferior mesenteric artery is patent. Renal arteries: No stenosis in the renal arteries. Right iliac arteries: Moderate calcific plaque with less than 50% stenosis of the right common iliac artery. Moderate calcific plaque with 50-60% stenosis of the right proximal external iliac artery. Short segment dissection flap is seen in the right distal external iliac artery. Mild calcific plaque with less than 50% stenosis in the right internal iliac artery. Right femoral/popliteal arteries: Right proximal femoral arteries are patent. Left iliac arteries: Moderate calcific plaque with 50-60% stenosis in the proximal left common iliac artery. Noncalcific plaque with 50-60% short segment stenosis in the mid left external iliac artery. Left internal iliac artery is normal. Left femoral/popliteal arteries: Left proximal femoral arteries are patent. CHEST: Trachea: Saber sheath trachea. Lungs: Marked diffuse central bronchial wall thickening on the right. Left-sided bronchi are unremarkable. Severe centrilobular emphysema. Extensive confluent peribronchovascular consolidation with surrounding reticular opacity in the central and lower left lung is progressive since 10/26/2023. An irregular masslike focus of consolidation in the posterior right upper lobe measures 2.9 x 2.7 cm which is similar to findings on 10/26/2023. Left lung is clear. Pleural spaces: There is no pleural effusion or pneumothorax. Heart: Large simple pericardial effusion is increased since 10/26/2023. Heart size is normal. There is decompression of the right and left ventricles. No definite atrial compression. Inferior vena cava is mildly dilated, and is increased in size since 10/26/2023 currently measuring 29 mm compared to 24 mm previously. No SVC dilation. There is contrast reflux into the IVC and hepatic veins. Mediastinal space: Abnormal soft tissue density in right hilum surrounding the right bronchus intermedius. ABDOMEN AND PELVIS: Liver: The liver is normal. Gallbladder and biliary ducts: The gallbladder is distended. The wall is thin. There are no stones. There is no intrahepatic or extrahepatic bile duct dilation. Pancreas: The pancreas is unremarkable. Spleen: The spleen is unremarkable. Adrenal glands: There is bilateral adrenal hypertrophy. There is a 3.8 x 3.3 cm intermediate density the left adrenal mass. Kidneys and ureters: The kidneys are unremarkable. No hydronephrosis or stones. No ureteral dilation. Stomach and bowel: The stomach is unremarkable. The small bowel is nondilated. The colon is diffusely stool distended to the mid descending region. Sigmoid is unremarkable. No sign of colonic inflammation or obstruction. Appendix: The appendix is not visible. Intraperitoneal space: There is no free air or significant intraperitoneal free fluid. Urinary bladder: The urinary bladder is nondistended, limiting assessment of wall thickness. Reproductive: The uterus is unremarkable. There is no adnexal mass or large cyst. Lymph nodes: There is a 22 x 13 mm right hilar lymph node on axial series 4, image 81. There is no lymphadenopathy in the retroperitoneum, mesentery, pelvis or inguinal regions. Bones/joints: Bones in the chest are unremarkable. There is mild degenerative disease in the lumbar spine. Ill-defined asymmetric bone sclerosis throughout the left posterior ilium. There is mild degenerative disease of both hips. The bony pelvis is intact. Soft tissues: The extrathoracic soft tissues are unremarkable. The abdominal wall is intact. CT/CT ang rudolph abdpel [id number] IMPRESSION: 1. Large simple pericardial effusion is increased in size since 10/26/2023. 2. Equivocal findings for cardiac tamponade including contrast reflux into the IVC and hepatic veins, interval dilation of the IVC, and ventricular decompression. 3. No pulmonary embolism. 4. Mild aortic atherosclerotic disease. No aneurysm or dissection. 5. Patent visceral arteries. 6. Mild stenosis in bilateral iliac arteries. 7. 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 8. Masslike focal consolidation in the right upper lobe associated with extensive central and lower lung predominant peribronchovascular consolidation, bronchial wall thickening and abnormal soft tissue thickening in the right timur. Differential diagnosis includes infection and malignancy with lymphangitic carcinomatosis. Consolidation is progressive in the right lower lobe. Right upper lobe masslike consolidation is stable. 9. 3.8 cm left adrenal mass, stable since 10/26/2023, suspicious for metastasis. Adrenal adenoma not excluded. Non-emergent adrenal CT is recommended. (Reference: Douglas) 10. Severe centrilobular emphysema. 11. Mildly enlarged right hilar lymph nodes may be reactive or neoplastic. 12. Stool distended colon. No sign of inflammation. This finding would support a clinical diagnosis of constipation. 13. Incidental findings above. REFERENCES: Douglas PANTOJA et al. Management of Incidental Adrenal Masses: A White Paper of the ACR Incidental Findings Committee. J Am Lydia Radiol. 2017;14(8):6892-1361.
[2023-12-17 17:39] LABS: Charge for UA Resulting for Rev
[2023-12-17 17:44] LABS: Bilirubin Urine 1+ (Negative); Blood Urine Negative (Negative); Glucose Urine UA Negative (Normal); Ketones Urine Trace (Negative); Leukocyte Esterase Urine Negative (Negative); Nitrate Urine Negative (Negative); Protein Urine Trace (Negative); Urine Appearance Clear (CLEAR); Urine Color Dark Yellow (Yellow); pH Urine 5.5 (5-7)
[2023-12-17] MEDS: iohexol 350 mg/mL 500 mL Btl (per mL) IV (17:53)
[2023-12-17 17:55] LABS: Lactic Sepsis W/Reflex 1.7 mmol/L (0.5-2.2)
[2023-12-17 17:58] LABS: Specific Gravity, Urine 1.032 (1.005-1.030); UA Manual Slide Review YES; UA Slide Review UA Slide Review Perf
[2023-12-17 18:02] LABS: Add Urine Culture? No; Mucus Urine 2+ /hpf; RBC Urine 0-4 /hpf (0-2); WBC Urine 0-4 /hpf (0-5)
[2023-12-17] MEDS: sodium chloride 0.9% 1,000 ML 999 ML IV (19:52)
[2023-12-17] MEDS: ketorolac 30 mg/mL INJ 15 MG IVP (19:52)
--- NOTE | 2023-12-17 20:08 | USCV_ITS ---
Ade Mcpherson Age: 58 Gender: F : 1965 Exam Date: 12/17/2023 20:22 Ordering Phys: Xavi Zaragoza DO Technologist: SHERRIE Exam Location: [facility] [place] Indication: re-assess pericardial effusion ONLY. Limited study. BP: 81 / 58 HR: 115 Rhythm: Sinus Technical Quality: Adequate MEASUREMENTS (Male / Female) Normal Values FINDINGS Left Ventricle Right Ventricle Right Atrium Left Atrium Mitral Valve Aortic Valve Tricuspid Valve Pulmonic Valve Pericardium Aorta IVC CONCLUSIONS Please note that this is a limited echocardiogram to rule out cardiac tamponade Large size pericardial effusion noted in front of right ventricle without evidence of RV or RA collapse. Left ventricular ejection fraction appeared to be normal 55 to 60%. There appeared to be no tamponade physiology of hemodynamic significance. When compared to the prior echocardiogram dated 12/04/2023, there is large pericardial effusion now without significant hemodynamic compromise. Cecilia Chakraborty MD (Electronically Signed) Final Date: 17 December 2023 21:32 S
--- NOTE | 2023-12-17 21:05 | PM.CONSULT ---
Providers/Reason For Consult Consulting Physician/Specialty*: Dr. Chakraborty/cardiology Reason for Consult*: Large pericardial effusion Requesting Physician: Dr. Marion History of Present Illness History of Present Illness Ade Mcpherson is a 58 year old female past medical history significant for COPD alcohol intoxication lung tumor recurrent pericardial effusion generalized weakness weight loss history of CVA presented with dizziness weakness shortness of breath and hypertension, during what up CT chest abdomen pelvis revealed large size pericardial effusion which appeared to be simple not compressing ventricle or atrium not suggestive of tamponade physiology, I was asked to see the patient. I saw the patient in the ER, patient sitting in the bed with somewhat shortness of breath but in general comfortable she was able to complete the sentences and was mentating good. Patient told me she is hospice and awaiting oncology consultation as an outpatient, she told me she was feeling short of breath bringing some phlegm and felt weak therefore she came in here, she was given IV fluid which brought her systolic blood pressure to 90s after which she is feeling better. Stat echocardiogram was performed with limited views which shows large pericardial effusion of no hemodynamic significance there was no RV or RA collapse. Currently denies chest pain PND orthopnea. Medications/Allergies Home Medications Medication Instructions Recorded Confirmed Last Taken Type amlodipine 5 mg tablet (Norvasc) 5 mg PO BID #60 tabs 09/07/23 12/17/23 Unknown Rx clopidogrel 75 mg tablet 75 mg PO DAILY #21 tabs 09/07/23 12/17/23 12/02/23 Rx albuterol sulfate 90 mcg/actuation 2 puff inhalation Q6H PRN 10/26/23 12/17/23 12/02/23 History aerosol inhaler (Ventolin HFA) Shortness Of Breath atorvastatin 40 mg tablet 40 mg PO BEDTIME 10/26/23 12/17/23 12/02/23 History ipratropium 0.5 mg-albuterol 3 mg 3 ml inhalation Q4H PRN Shortness 10/26/23 12/17/23 Unknown History (2.5 mg base)/3 mL nebulization Of Breath soln losartan 50 mg tablet 50 mg PO DAILY 10/26/23 12/17/23 12/02/23 History umeclidinium 62.5 mcg-vilanterol 1 inh inhalation DAILY 10/26/23 12/17/23 12/03/23 History 25 mcg/actuation powdr for inhalation (Anoro Ellipta) varenicline 1 mg tablet (Chantix) 1 mg PO BID 10/26/23 12/17/23 Unknown History pantoprazole 40 mg tablet,delayed 40 mg PO DAILY #30 tabs 10/28/23 12/17/23 12/02/23 Rx release (Protonix) alprazolam 0.5 mg tablet 0.5 mg PO TID PRN Anxiety #10 tabs 12/09/23 12/17/23 Unknown Rx folic acid 1 mg tablet 1 mg PO DAILY #90 tabs 12/09/23 12/17/23 Unknown Rx guaifenesin 100 mg/5 mL oral liquid 400 mg (20 mL) PO Q4H PRN Cough 12/09/23 12/17/23 Unknown Rx #473 mL linezolid 600 mg tablet 600 mg PO Q12H #14 tabs 12/09/23 12/17/23 Unknown Rx metoprolol tartrate 25 mg tablet 50 mg (2 x 25 mg) PO BID@0900,2100 12/09/23 12/17/23 12/02/23 Rx #60 tabs multivitamin with folic acid 400 1 tab PO DAILY #90 tabs 12/09/23 12/17/23 Unknown Rx mcg tablet (Thera) prednisone 10 mg tablet 10 mg PO DAILY #4 tabs 12/09/23 12/17/23 Unknown Rx thiamine mononitrate (vit B1) 100 100 mg PO DAILY #90 tabs 12/09/23 12/17/23 Unknown Rx mg tablet (Vitamin B-1 (mononitrate)) Allergies Allergy/AdvReac Type Severity Reaction Status Date / Time No Known Allergies Allergy Verified 12/17/23 14:23 PFSH Acute PFSH: Medical History Pneumonia Hypertension HTN (hypertension) with goal to be determined COPD (chronic obstructive pulmonary disease) Hirsutism Alcohol intoxication Brain TIA Social History Smoking and tobacco/nicotine status: current every day tobacco/nicotine user cigarettes Alcohol intake: former Former alcohol use details: States she is quit, has not had any alcohol since last admission. Substance/Drug Use: current Substance/Drug use frequency: other Other substance/drug use details: Rare Vitals/I&O/Wt Last Vital Signs Temp 98.3 F 12/17/23 14:37 Pulse 113 H 12/17/23 20:35 Resp 18 12/17/23 20:35 BP 115/77 12/17/23 20:35 Pulse Ox 96 12/17/23 20:35 O2 Del Method Nasal Cannula 12/17/23 18:16 O2 Flow Rate 2 12/17/23 18:16 12/17/23 12/17/23 12/17/23 06:59 14:59 22:59 Intake Total 500 / 500 Balance 500 / 500 Weight last 48 hrs Weight 103 lb Physical Exam Const: OTHER: GENERAL: Patient is alert, awake and oriented x3. HEART: Regular S1 and S2. No murmur, rub or gallop. Heart sounds are not muffled or distant, both radial pulses palpable and robust LUNGS: Decreased breath sounds bilaterally. CENTRAL NERVOUS SYSTEM: Grossly nonfocal. EXTREMITIES: Lower extremities without edema bilaterally. Data 12/17/23 14:56 12/17/23 14:56 Micro: Microbiology 12/17/23 17:27 Blood Culture - Preliminary Blood SPECIMEN COLLECTED 12/17/23 17:27 Blood Culture - Preliminary Blood SPECIMEN COLLECTED A&P Assessment and plan (1) Pericardial effusion: Patient has large pericardial effusion not circumferential, there is no diastolic RV or atrial collapse suggestive of at the moment no hemodynamic significance and not tamponade. Twelve-lead EKG shows sinus tachycardia normal voltage criteria no electrical alternans. Patient is mentating good, she is talking to me in full sentences. 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 I have detailed discussion with patient ER physician and our hospitalist colleague regarding her management. My plan is to admit her to ICU continue IV fluid and closely monitor for worsening of tachycardia hypotension pulses paradoxus voltage criteria for alternant in that case we will proceed with urgent pericardiocentesis with drain placement otherwise patient may need pericardial window. Hold beta-luis losartan, rule out sepsis and other causes for hypotension. She will be kept overnight n.p.o. (2) Hypotension: Could be multifactorial including dehydration sepsis medications therefore we will hold antihypertensive and beta-luis. Closely monitor in the ICU, give IV fluid at rate of 100 mL/h after the bolus, she already received 1 L of bolus and feeling much better. If required she can be started on Levophed. I will be consulted with question or any concern overnight. (3) Acute exacerbation of chronic obstructive airways disease: (4) Alcoholism: Coding Level of Care Code Acute Code for [facility] Diagnoses Pericardial effusion I31.39 Hypotension I95.9 Acute exacerbation of chronic obstructive airways disease J44.1 Alcoholism F10.20
[2023-12-17] MEDS: albuterol 8 gm MDI 1 PUFF INHALATION (21:20)
--- NOTE | 2023-12-17 21:23 | P.HP_ITS ---
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 Who was at pulmonary physicians office, awaiting to be seen, when rapid response was called due to a systolic blood pressure of 69, in the emergency room, there was concerns for recurrent pericardial effusion, hypotension, she had a CT of her chest, cardiology was consulted, had a bedside echocardiogram, spoke to cardiology, patient has a pericardial effusion, but no evidence of tamponade, no RV collapse, noted no pulses paradoxus, cardiology felt that possibly dehydration could be playing a role. Currently patient is seen, she is sitting up in the gurney, she is alert oriented x 4, following all commands denies any chest pain, does report a cough, a wet cough, no shortness of breath, no lightheaded, dizziness, no nausea, no vomiting. She tells me that she has been feeling weak over the last few days, she tells me that she feels like she has a good appetite, no diarrhea, no dysuria, hematuria, no lightheadedness, no dizziness. -Discussed with cardiology, concerns for patient's pericardial effusion, no evidence of tamponade, no RV collapse, no noted pulses paradoxus, concern was possibly dehydration who could be playing a role in patient's low blood pressures, recommend IV hydration, monitoring overnight in ICU. If patient does become hypotensive, then we will go ahead and proceed with pericardiocentesis, as we do not have cardiothoracic surgery here at [facility], then at that time would recommend transfer to tertiary level center after procedure has been performed -Discussed with patient plan to monitor here at [facility], IV hydration and monitoring ICU, if she has another significant episodes of hypotension, we will certainly go ahead and proceed with pericardiocentesis, and then at that point would have to work on transferring her to a tertiary level center for pericardial window, discussed her malignant pericardial effusion Review of Systems 2 Const: Reports: fatigue and malaise; Denies: fever(s) or chills Card: Denies: chest pain Resp: Denies: dyspnea GI: Denies: abdominal pain Neuro: Denies: headache(s), numbness in extremities, dizziness or vertigo Medications/Allergies Home Medications Medication Instructions Recorded Confirmed Last Taken Type amlodipine 5 mg tablet (Norvasc) 5 mg PO BID #60 tabs 09/07/23 12/17/23 Unknown Rx clopidogrel 75 mg tablet 75 mg PO DAILY #21 tabs 09/07/23 12/17/23 12/02/23 Rx albuterol sulfate 90 mcg/actuation 2 puff inhalation Q6H PRN 10/26/23 12/17/23 12/02/23 History aerosol inhaler (Ventolin HFA) Shortness Of Breath atorvastatin 40 mg tablet 40 mg PO BEDTIME 10/26/23 12/17/23 12/02/23 History ipratropium 0.5 mg-albuterol 3 mg 3 ml inhalation Q4H PRN Shortness 10/26/23 12/17/23 Unknown History (2.5 mg base)/3 mL nebulization Of Breath soln losartan 50 mg tablet 50 mg PO DAILY 10/26/23 12/17/23 12/02/23 History umeclidinium 62.5 mcg-vilanterol 1 inh inhalation DAILY 10/26/23 12/17/23 12/03/23 History 25 mcg/actuation powdr for inhalation (Anoro Ellipta) varenicline 1 mg tablet (Chantix) 1 mg PO BID 10/26/23 12/17/23 Unknown History pantoprazole 40 mg tablet,delayed 40 mg PO DAILY #30 tabs 10/28/23 12/17/23 12/02/23 Rx release (Protonix) alprazolam 0.5 mg tablet 0.5 mg PO TID PRN Anxiety #10 tabs 12/09/23 12/17/23 Unknown Rx folic acid 1 mg tablet 1 mg PO DAILY #90 tabs 12/09/23 12/17/23 Unknown Rx guaifenesin 100 mg/5 mL oral liquid 400 mg (20 mL) PO Q4H PRN Cough 12/09/23 12/17/23 Unknown Rx #473 mL linezolid 600 mg tablet 600 mg PO Q12H #14 tabs 12/09/23 12/17/23 Unknown Rx metoprolol tartrate 25 mg tablet 50 mg (2 x 25 mg) PO BID@0900,2100 12/09/23 12/17/23 12/02/23 Rx #60 tabs multivitamin with folic acid 400 1 tab PO DAILY #90 tabs 12/09/23 12/17/23 Unknown Rx mcg tablet (Thera) prednisone 10 mg tablet 10 mg PO DAILY #4 tabs 12/09/23 12/17/23 Unknown Rx thiamine mononitrate (vit B1) 100 100 mg PO DAILY #90 tabs 12/09/23 12/17/23 Unknown Rx mg tablet (Vitamin B-1 (mononitrate)) Allergies Allergy/AdvReac Type Severity Reaction Status Date / Time No Known Allergies Allergy Verified 12/17/23 14:23 PFSH Acute 2 PFSH: Medical History (Updated 12/17/23 @ 21:32 by Dez Erwin MD) Pneumonia Hypertension HTN (hypertension) with goal to be determined COPD (chronic obstructive pulmonary disease) Hirsutism Alcohol intoxication Brain TIA Social History Smoking and tobacco/nicotine status: current every day tobacco/nicotine user cigarettes Alcohol intake: former Former alcohol use details: States she is quit, has not had any alcohol since last admission. Substance/Drug Use: current Substance/Drug use frequency: other Other substance/drug use details: Rare Vitals/I&O/Wt Last Vital Signs Temp 98.3 F 12/17/23 14:37 Pulse 117 H 12/17/23 21:00 Resp 16 12/17/23 21:00 BP 115/87 12/17/23 21:00 Pulse Ox 97 12/17/23 21:00 O2 Del Method Nasal Cannula 12/17/23 18:16 O2 Flow Rate 2 12/17/23 18:16 12/17/23 12/17/23 12/17/23 06:59 14:59 22:59 Intake Total 500 / 500 Balance 500 / 500 Weight last 48 hrs Weight 46.72 kg Physical Exam 2 Const: COMMON NORMALS: no acute distress and patient oriented x3 HENMT: COMMON NORMALS: normocephalic HEAD & SCALP: normocephalic Eye: COMMON NORMALS: Equal, round and reactive pupils present and EOMs intact bilaterally Neck/C-Spine: COMMON NORMALS: no JVD Resp: COMMON NORMALS: normal respiratory effort, No retractions, No use of accessory muscles and clear to auscultation bilaterally AUSCULTATION: clear to auscultation bilaterally Cardio: COMMON NORMALS: regular rate, regular rhythm, S1 normal heart sound present and S2 normal heart sound present RATE: regular rate RHYTHM: r egular rhythm HEART SOUNDS: S1 normal heart sound present and S2 normal heart sound present GI: COMMON NORMALS: Normal to inspection, nondistended, normoactive bowel sounds present, Soft to palpation and No hepatosplenomegaly present Extremity: COMMON NORMALS: no calf tenderness and no pedal edema Neuro: COMMON NORMALS: patient oriented x3, CN's II-XII intact bilaterally, moves all extremities and no focal motor deficits Psych: COMMON NORMALS: mental status grossly normal Data 12/17/23 14:56 12/17/23 14:56 Micro: Microbiology 12/17/23 17:27 Blood Culture - Preliminary Blood SPECIMEN COLLECTED 12/17/23 17:27 Blood Culture - Preliminary Blood SPECIMEN COLLECTED A&P Assessment and plan (1) Malignant pericardial effusion: (2) Hypotension: (3) Pericardial effusion: (4) Pneumonia: (5) Dehydration: Plan Hypotension -Component of dehydration -Possible pneumonia -Malignant pleural effusion -Greater than 65 currently -Monitor in ICU closely -Continue IV fluids Malignant pericardial effusion ? 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, PDL expression level TPS level less than 1% -With recurrent pericardial effusion -No current evidence of tamponade, no RV collapse, no pulses paradoxus -Will monitor in ICU closely -If patient has recurrent episodes of hypotension, then will require urgent pericardiocentesis -And likely transfer for pericardial window -Will monitor closely -Hold Plavix for now -Hold Lovenox for now as last pericardial effusion was red, turbid, 34 RBCs Pneumonia -WBC 21.39 -Does report a cough -CT scan Masslike focal consolidation in the right upper lobe associated with extensive central and lower lung predominant peribronchovascular consolidation, bronchial wall thickening and abnormal soft tissue thickening in the right timur. Differential diagnosis includes infection and malignancy with lymphangitic carcinomatosis. Consolidation is progressive in the right lower lobe. Right upper lobe masslike consolidation is stable. -Start vancomycin -Zosyn Right lung mass -Will need to follow-up with pulmonary, potentially can discuss with pulmonary tomorrow if they are in the office -Will need to follow-up with hematology oncology Full code Lovenox for DVT prophylaxis History of CVA -Continue statin -Hold Plavix for now Attestations 2 Medical Necessity Statement*: Patient requires hospitalization, inpatient, greater than 2 midnights, for malignant pericardial effusion, hypotension, dehydration, pneumonia Diagnoses Malignant pericardial effusion I31.31 Hypotension I95.9 Pericardial effusion I31.39 Pneumonia J18.9 Dehydration E86.0
[2023-12-17 21:57] LABS: INR 0.99 (0.8-1.2)
[2023-12-17 22:11] LABS: C Reactive Protein 22.6 mg/L (0.0-4.9); NT Pro B Type Natriuretic Pept 1201 pg/mL (0-125)
[2023-12-17 22:47] LABS: Thyroid Stimulating Hormone 1.03 uIU/mL (0.27-4.20)
[2023-12-17] MEDS: sodium chloride 0.9% 1,000 ML 125 ML IV (22:59)
[2023-12-17] MEDS: vancomycin 1,000 MG in sodium chloride 0.9% 250 ML 250 MG IV (22:59)
[2023-12-17] MEDS: pantoprazole 40 mg SDV IVP (22:59)
[2023-12-18] VITALS (40 sets, daily range): BP systolic 80–134; BP diastolic 66–95; PULSE 115–137; RESP 14–29; O2SAT 92–97
[2023-12-18] MEDS: piperacillin-tazobactam 3.375 GM in sodium chloride 0.9% (plus) 50 ML IV ×3 (00:24→14:48)
[2023-12-18] MEDS: ALPRAZolam 0.5 mg Tablet PO (01:43)
[2023-12-18 03:16] LABS: Basophils % 0.2 %; Eosinophils # 0.1 10^3/uL (0.0-0.8); Eosinophils % 0.8 %; Lymphocytes # 1.4 10^3/uL (0.8-4.8); Lymphocytes % 11.4 %; Mean Corpuscular HGB Conc 31.8 g/dL (30-55); Mean Corpuscular Hemoglobin 28.4 pg (27-33); Mean Corpuscular Volume 89.2 fl (85-98); Mean Platelet Volume 9.3 fL (7.4-10.4); Monocytes % 7.8 %; Neutrophils # 9.56 10^3/uL (1.8-7.7); Nucleated Red Blood Cells % 0 %; Platelet Count 467 10^3/cmm (157-399); Red Blood Count 4.26 10^6/uL (3.85-5.65); Red Cell Distribution Width 17.1 % (12.1-15.1); White Blood Count 12.12 10^3/uL (3.29-11.43)
[2023-12-18 03:45] LABS: Blood Urea Nitrogen 15 mg/dL (6-20); Calcium 7.8 mg/dL (8.5-10.5); Carbon Dioxide 19 mmol/L (22-29); Chloride 106 mmol/L (98-107); Creatinine Clr Calc Pharmacy 88.8831; Glomerular Filtration Rate 127.6 mL/min (90-130); Glucose 79 mg/dL (65-115); Magnesium 1.7 mg/dL (1.7-2.3); Osmolality Calculated 286 mOsm/kg (285-295); Phosphorus 4.1 mg/dL (2.5-4.5); Sodium 138 mmol/L (136-145)
[2023-12-18 03:46] LABS: Cortisol Random 4.18 ug/dL (2.47-19.5)
[2023-12-18 03:52] LABS: Anion Gap 17.2 (5-19); Potassium 4.2 mmol/L (3.5-5.1)
[2023-12-18] MEDS: ipratropium-albuterol 3 mL Neb INHALATION ×2 (04:28→08:24)
[2023-12-18] MEDS: morphine 4 mg/mL SDV 1 mL 2 MG IVP ×2 (07:43→14:47)
[2023-12-18] MEDS: sodium chloride 0.9% 1,000 ML 125 ML IV (07:51)
[2023-12-18] MEDS: folic acid 1 mg Tablet PO (07:52)
[2023-12-18] MEDS: multivitamin therapeutic Tablet 1 TAB PO (07:52)
[2023-12-18] MEDS: thiamine 100 mg Tablet PO (07:52)
--- NOTE | 2023-12-18 08:01 | W.PM.OPSUD ---
Surgery/Procedure H&P Update DATE OF PROCEDURE: December 18, 2023 DATE H&P PERFORMED: 12/16/23 H&P UPDATE INFORMATION: I have reviewed H&P completed within last 30 days, I have examined patient prior to procedure, No changes to prior documentation, Changes to prior documentation as noted here and H&P to be scanned into chart OTHER PERTINENT EXAM FINDINGS: Mallampati 2 AIRWAY EVAL/ANESTHESIA PLAN: normal airway, see other exam findings, ASA II, Risks, benefits & alternatives of sedation and/or procedure discussed and Patient agrees to continue as planned
--- NOTE | 2023-12-18 08:30 | PC.PHAR ---
Pt is from [facility]
[2023-12-18] MEDS: oxyCODONE-APAP 5-325 mg Tablet 1 TAB PO ×2 (10:28→13:30)
[2023-12-18] MEDS: vancomycin 750 MG in sodium chloride 0.9% 250 ML 250 MG IV (10:34)
--- NOTE | 2023-12-18 11:22 | P.PN_ITS ---
Subjective 2 Subjective: No overnight event. Blood pressure improved after IV fluid, she is slightly tachycardic most likely secondary to COPD exacerbation and because of the fact we held her metoprolol Vitals/I&O/Wt Last Vital Signs Temp 97.7 F 12/17/23 22:25 Pulse 122 H 12/18/23 08:25 Resp 16 12/18/23 10:28 BP 101/68 12/18/23 08:15 Pulse Ox 94 12/18/23 08:25 O2 Del Method Nasal Cannula 12/18/23 08:25 O2 Flow Rate 2 12/18/23 08:25 12/17/23 12/18/23 12/18/23 22:59 06:59 14:59 Intake Total 1500 / 1500 1300 / 2800 34.583 / 34.583 Output Total 350 / 350 Balance 1500 / 1500 1300 / 2800 -315.417 / -315.417 Weight last 48 hrs Weight 98 lb 12.8 oz Weight 103 lb Physical Exam 2 Const: OTHER: GENERAL: Patient is alert, awake and oriented x3. Not in distress HEART: Regular S1 and S2. No murmur, rub or gallop. Heart sounds are not muffled or distant, both radial pulses palpable and robust LUNGS: Decreased breath sounds bilaterally. CENTRAL NERVOUS SYSTEM: Grossly nonfocal. EXTREMITIES: Lower extremities without edema bilaterally. Data 12/18/23 02:31 12/18/23 02:31 Micro: Microbiology 12/17/23 17:27 Blood Culture - Preliminary Blood SPECIMEN COLLECTED 12/17/23 17:27 Blood Culture - Preliminary Blood SPECIMEN COLLECTED A&P Assessment and plan (1) Pericardial effusion: Patient has large pericardial effusion not circumferential, there is no diastolic RV or atrial collapse suggestive of at the moment no hemodynamic significance and not tamponade. Twelve-lead EKG shows sinus tachycardia normal voltage criteria no electrical alternans. Patient is mentating good, she is talking to me in full sentences. 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 I have detailed discussion with patient ER physician and our hospitalist colleague regarding her management. My plan is to admit her to ICU continue IV fluid and closely monitor for worsening of tachycardia hypotension pulses paradoxus voltage criteria for alternant in that case we will proceed with urgent pericardiocentesis with drain placement otherwise patient may need pericardial window. Hold beta-luis losartan, rule out sepsis and other causes for hypotension. She will be kept overnight n.p.o. On today's visit dated 12/18/2023, patient is feeling already better. She is stable hemodynamically, systolic blood pressure 114/60. Continue holding amlodipine beta-luis, will stop IV fluid. 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 We do not have CT surgery here at [facility] therefore we have requested Dr. Hernandez CT surgeon at [facility] if he can help us, patient will be transferred to the [facility] to CT surgery for pericardial window. I have detailed discussion with the patient explaining all risk-benefit and alternative for the procedure she would like to proceed with it. Patient has told me she is not hospice. She would like to see oncologist first and decide until then patient require mostly therapeutic drainage with window. (2) Hypotension: Could be multifactorial including dehydration sepsis medications therefore we will hold antihypertensive and beta-luis. Closely monitor in the ICU, give IV fluid at rate of 100 mL/h after the bolus, she already received 1 L of bolus and feeling much better. If required she can be started on Levophed. I will be consulted with question or any concern overnight. On today's visit at 12/18/2023 after hydration patient vital has improved and she is stable last systolic blood pressure 114/60 with heart rate around 110- 118. Will continue holding beta-luis amlodipine, consider stopping clopidogrel which she takes for TIA stroke (3) Acute exacerbation of chronic obstructive airways disease: Treatment as per medicine (4) Alcoholism: Attestations 2 Medical Necessity Statement*: Patient will be transferred for pericardial window and higher level of service to [facility] CT surgery Coding Level of Care Code Acute Code for Chg Fwd Diagnoses Pericardial effusion I31.39 Hypotension I95.9 Acute exacerbation of chronic obstructive airways disease J44.1 Alcoholism F10.20
--- NOTE | 2023-12-18 11:25 | P.TS_ITS ---
Transfer Summary Providers Date of Admission: 12/17/23 21:43 Date of Discharge/Transfer: 12/18/23 Attending Provider at Admission: Dez Erwin MD Attending Provider at Transfer: Patel Schmitt MD Consults: Cardiology: Dr. Chakraborty Transfer Plans: Anticipated date of transfer: 12/18/23 . Receiving Facility: [facility] . Receiving Provider: Dr. Diaz . Diagnoses at Discharge Discharge Diagnosis (1) Malignant pericardial effusion: Status: Acute (2) Hypotension: Status: Acute (3) Pericardial effusion: Status: Acute (4) Pneumonia: Status: Acute (5) Dehydration: Status: Acute Reason for Visit Reason for Visit rapid Hospital Course Hospital Course tram Mcpherson is a 58 year old female with a past medical history of right lung mass with suspected lymphangitic spread, with adrenal mets, enlarged lymph nodes in the mediastinum, history of COPD, [employer] territory infarct, recently admitted to [facility] for a pericardial effusion, requiring pericardiocentesis, cytology follow-up pericardial effusion showed evidence of metastatic adenocarcinoma, treated with a COPD exacerbation, pneumonia, discharged to [facility] facility. Who was at pulmonary physicians office, awaiting to be seen, when rapid response was called due to a systolic blood pressure of 69, in the emergency room, there was concerns for recurrent pericardial effusion, hypotension, she had a CT of her chest, cardiology was consulted, had a bedside echocardiogram, spoke to cardiology, patient has a pericardial effusion, but no evidence of tamponade, no RV collapse, noted no pulses paradoxus, cardiology felt that possibly dehydration could be playing a role. Currently patient is seen, she is sitting up in the gurney, she is alert oriented x 4, following all commands denies any chest pain, does report a cough, a wet cough, no shortness of breath, no lightheaded, dizziness, no nausea, no vomiting. She tells me that she has been feeling weak over the last few days, she tells me that she feels like she has a good appetite, no diarrhea, no dysuria, hematuria, no lightheadedness, no dizziness. Patient was admitted to the ICU for further evaluation and monitoring. She was started on IV hydration with concerns for dehydration leading to worsening of pericardial effusion symptoms leading to hypotension. Echocardiogram was done which ruled out tamponade without RV collapse or pulsus paradoxus. Patient remained hemodynamically stable. She was started on IV antibiotics given concerns for possible postobstructive pneumonia. CODE STATUS discussed in detail with the patient. As per patient she is not on hospice and would want to prefer and pursue treatment for the cancer. Need for pericardial window was discussed in detail with the patient given recurrent malignant pericardial effusion. Also discussed as patient is not in tamponade currently she does not need immediate pericardiocentesis. Possible discharge to a tertiary center for development of pericardial window was discussed in detail with the patient and she was agreeable. Cardiology team got in touch with Dr. Harris from [facility] and she was accepted. She has been transferred in fair condition given need for earlier pericardial window and further treatment of possible malignancy. She has been continued with treatment on IV vancomycin and Zosyn. Currently all home antihypertensives are on hold. Physical Exam Const: COMMON NORMALS: no acute distress and patient oriented x3 HENMT: COMMON NORMALS: normocephalic HEAD & SCALP: normocephalic Eye: COMMON NORMALS: Equal, round and reactive pupils present and EOMs intact bilaterally PUPIL: Yes Equal, round and reactive pupils present Resp: COMMON NORMALS: normal respiratory effort, No retractions, No use of accessory muscles and clear to auscultation bilaterally AUSCULTATION: clear to auscultation bilaterally Cardio: COMMON NORMALS: regular rate, regular rhythm, S1 normal heart sound present and S2 normal heart sound present RATE: regular rate RHYTHM: regular rhythm HEART SOUNDS: S1 normal heart sound present and S2 normal heart sound present OTHER: Tachycardia GI: COMMON NORMALS: Normal to inspection, nondistended, normoactive bowel sounds present, Soft to palpation and No hepatosplenomegaly present PALPATION: Yes Soft to palpation and Yes No hepatosplenomegaly present Extremity: COMMON NORMALS: no calf tenderness and no pedal edema Neuro: COMMON NORMALS: patient oriented x3, CN's II-XII intact bilaterally, moves all extremities and no focal motor deficits Psych: COMMON NORMALS: mental status grossly normal TS Data Studies Completed and Pending Pending at discharge Category Date Time Status CA echo doppler complete Stat Exams 12/17/23 19:30 Stop Req CA echo doppler complete Stat Exams 12/17/23 19:48 Stop Req Blood Culture Stat Lab 12/17/23 17:27 Results Completed Studies During Hospitalization Category Date Time Status CTA chest abdomen pelvis [CT ang ches abdpel 47910/ Cat Scan 12/17/23 16:58 Completed [id number]] Stat XR chest 1V portable [id number] Stat Exams 12/17/23 14:38 Completed CV. echo limited [id number] Stat Ultrasound 12/17/23 20:08 Completed Laboratory Last Values WBC 12.12 10^3/uL (3.29-11.43) H 12/18/23 02:31 RBC 4.26 10^6/uL (3.85-5.65) 12/18/23 02:31 Hgb 12.10 g/dL (11.27-16.99) 12/18/23 02:31 Hct 38.0 % (36-47) 12/18/23 02:31 MCV 89.2 fl (85-98) 12/18/23 02:31 MCH 28.4 pg (27-33) 12/18/23 02:31 MCHC 31.8 g/dL (30-55) 12/18/23 02:31 RDW 17.1 % (12.1-15.1) H 12/18/23 02:31 Plt Count 467 10^3/cmm (157-399) H 12/18/23 02:31 MPV 9.3 fL (7.4-10.4) 12/18/23 02:31 Neut % (Auto) 79.0 % 12/18/23 02:31 Lymph % (Auto) 11.4 % 12/18/23 02:31 Mclennan % (Auto) 7.8 % 12/18/23 02:31 Eos % (Auto) 0.8 % 12/18/23 02:31 Baso % (Auto) 0.2 % 12/18/23 02:31 Neut # (Auto) 9.56 10^3/uL (1.8-7.7) H 12/18/23 02:31 Lymph # (Auto) 1.4 10^3/uL (0.8-4.8) 12/18/23 02:31 Mclennan # (Auto) 1.0 10^3/uL (0.2-0.9) H 12/18/23 02:31 Eos # (Auto) 0.1 10^3/uL (0.0-0.8) 12/18/23 02:31 Baso # (Auto) 0.0 10^3/uL (0.0-0.1) 12/18/23 02:31 Nucleated RBC % (auto) 0 % 12/18/23 02:31 Nucleated RBCs # 0.0 /100WBC 12/18/23 02:31 PT 13.40 SECONDS (12.1-14.9) 12/17/23 21:40 INR 0.99 (0.8-1.2) 12/17/23 21:40 Sodium 138 mmol/L (136-145) 12/18/23 02:31 Potassium 4.2 mmol/L (3.5-5.1) 12/18/23 02:31 Chloride 106 mmol/L (98-107) 12/18/23 02:31 Carbon Dioxide 19 mmol/L (22-29) L 12/18/23 02:31 Anion Gap 17.2 (5-19) 12/18/23 02:31 BUN 15 mg/dL (6-20) 12/18/23 02:31 Creatinine 0.5 mg/dL (0.5-0.9) 12/18/23 02:31 GFR Calculation 127.6 mL/min (90-130) 12/18/23 02:31 Glucose 79 mg/dL (65-115) 12/18/23 02:31 Calculated Osmolality 286 mOsm/kg (285-295) 12/18/23 02:31 Lactic Acid 1.7 mmol/L (0.5-2.2) 12/17/23 17:23 Calcium 7.8 mg/dL (8.5-10.5) L 12/18/23 02:31 Phosphorus 4.1 mg/dL (2.5-4.5) 12/18/23 02:31 Magnesium 1.7 mg/dL (1.7-2.3) 12/18/23 02:31 Total Bilirubin 1.8 mg/dL (0.15-1.2) H 12/17/23 14:56 AST 25 U/L (0-32) 12/17/23 14:56 ALT 50 U/L (0-33) H 12/17/23 14:56 Alkaline Phosphatase 160 U/L (35-105) H 12/17/23 14:56 C-Reactive Protein 22.6 mg/L (0.0-4.9) H 12/17/23 21:40 NT-Pro-B Natriuret Pep 1201 pg/mL (0-125) H 12/17/23 21:40 Total Protein 7.0 g/dL (6.6-8.7) 12/17/23 14:56 Albumin 3.7 g/dL (3.5-5.2) 12/17/23 14:56 Globulin 3.3 g/dL (1.3-4.6) 12/17/23 14:56 TSH 1.03 uIU/mL (0.27-4.20) 12/17/23 21:40 Random Cortisol 4.18 ug/dL (2.47-19.5) 12/18/23 02:31 Urine Color Dark yellow (Yellow) A 12/17/23 17:21 Urine Appearance Clear (CLEAR) 12/17/23 17:21 Urine pH 5.5 (5-7) 12/17/23 17:21 Ur Specific Prospect 1.032 (1.005-1.030) H 12/17/23 17:21 Urine Protein Trace (Negative) A 12/17/23 17:21 Urine Glucose (UA) Negative (Normal) 12/17/23 17:21 Urine Ketones Trace (Negative) 12/17/23 17:21 Urine Blood Negative (Negative) 12/17/23 17:21 Urine Nitrate Negative (Negative) 12/17/23 17:21 Urine Bilirubin 1+ (Negative) H 12/17/23 17:21 Urine Urobilinogen 1.0 mg/dL (Negative) 12/17/23 17:21 Ur Leukocyte Esterase Negative (Negative) 12/17/23 17:21 Urine RBC 0-4 /hpf (0-2) H 12/17/23 17:21 Urine WBC 0-4 /hpf (0-5) H 12/17/23 17:21 Ur Squamous Epith Cells None /hpf (0-5) 12/17/23 17:21 Amorphous Sediment Not Reportable 12/17/23 17:21 Urine Bacteria None /hpf (NONE) 12/17/23 17:21 Urine Mucus 2+ /hpf 12/17/23 17:21 Radiology Impressions Chest X-Ray 12/17/23 14:38 Impression: Continued right-sided infiltrate with chronic obstructive change. The right lung mass is better defined by CT. Chest/Abdomen/Pelvis CTA 12/17/23 16:58 IMPRESSION: 1. Large simple pericardial effusion is increased in size since 10/26/2023. 2. Equivocal findings for cardiac tamponade including contrast reflux into the IVC and hepatic veins, interval dilation of the IVC, and ventricular decompression. 3. No pulmonary embolism. 4. Mild aortic atherosclerotic disease. No aneurysm or dissection. 5. Patent visceral arteries. 6. Mild stenosis in bilateral iliac arteries. 7. 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 8. Masslike focal consolidation in the right upper lobe associated with extensive central and lower lung predominant peribronchovascular consolidation, bronchial wall thickening and abnormal soft tissue thickening in the right timur. Differential diagnosis includes infection and malignancy with lymphangitic carcinomatosis. Consolidation is progressive in the right lower lobe. Right upper lobe masslike consolidation is stable. 9. 3.8 cm left adrenal mass, stable since 10/26/2023, suspicious for metastasis. Adrenal adenoma not excluded. Non-emergent adrenal CT is recommended. (Reference: Douglas) 10. Severe centrilobular emphysema. 11. Mildly enlarged right hilar lymph nodes may be reactive or neoplastic. 12. Stool distended colon. No sign of inflammation. This finding would support a clinical diagnosis of constipation. 13. Incidental findings above. REFERENCES: Douglas PANTOJA, et al. Management of Incidental Adrenal Masses: A White Paper of the ACR Incidental Findings Committee. J Am Lydia Radiol. 2017;14(8):4091-2298. ADDENDUM: 12/17/23 1906 THIS REPORT CONTAINS FINDINGS THAT MAY BE CRITICAL TO PATIENT CARE. The findings and recommendations were personally verbally communicated via telephone conference with Dr JARQUIN at 7:03 PM CDT on 12/17/2023. The findings were acknowledged and understood. Echocardiogram CONCLUSIONS Please note that this is a limited echocardiogram to rule out cardiac tamponade Large size pericardial effusion noted in front of right ventricle without evidence of RV or RA collapse. Left ventricular ejection fraction appeared to be normal 55 to 60%. There appeared to be no tamponade physiology of hemodynamic significance. When compared to the prior echocardiogram dated 12/04/2023, there is large pericardial effusion now without significant hemodynamic compromise. Cecilia Chakraborty MD (Electronically Signed) Final Date: 17 December 2023 21:32 Recent Clincial Data Last Vital Signs Temp 97.7 F 12/17/23 22:25 Pulse 122 H 12/18/23 08:25 Resp 16 12/18/23 10:28 BP 101/68 12/18/23 08:15 Pulse Ox 94 12/18/23 08:25 O2 Del Method Nasal Cannula 12/18/23 08:25 O2 Flow Rate 2 12/18/23 08:25 Vital Signs Pulse Resp BP Pulse Ox O2 Del Method O2 Flow Rate 12/18/23 10:28 16 12/18/23 08:25 122 H 22 H 94 Nasal Cannula 2 12/18/23 08:15 122 H 21 H 101/68 96 12/18/23 08:00 126 H 17 120/76 93 12/18/23 07:45 128 H 18 99/68 92 12/18/23 07:43 18 92 12/18/23 07:30 125 H 19 H 96/83 96 12/18/23 07:15 126 H 18 94 12/18/23 07:00 125 H 18 94 12/18/23 04:36 118 H 24 H 95 12/18/23 04:28 119 H 22 H 95 Nasal Cannula 1.5 12/18/23 04:15 124 H 23 H 88/69 92 12/18/23 04:00 119 H 23 H 134/83 94 12/18/23 03:45 125 H 26 H 101/85 93 12/18/23 03:30 116 H 22 H 106/84 95 12/18/23 03:15 119 H 23 H 92/74 96 12/18/23 03:00 120 H 24 H 97/75 94 12/18/23 02:45 124 H 26 H 119/79 93 12/18/23 02:30 120 H 27 H 80/66 94 12/18/23 02:15 120 H 21 H 99/74 94 12/18/23 02:00 121 H 25 H 119/95 95 12/18/23 01:45 118 H 26 H 108/77 95 12/18/23 01:30 117 H 16 98/72 97 12/18/23 01:15 117 H 22 H 105/72 95 12/18/23 01:00 119 H 23 H 127/80 94 12/18/23 00:45 120 H 18 101/79 95 12/18/23 00:30 118 H 22 H 97/75 95 12/18/23 00:15 115 H 20 H 123/75 96 12/18/23 00:00 130 H 29 H 110/72 94 12/17/23 23:50 94 Nasal Cannula 3 12/17/23 23:45 117 H 23 H 99/75 96 12/17/23 23:30 118 H 22 H 111/74 96 Intake & Output/Weight 12/16/23 12/17/23 12/18/23 12/19/23 06:59 06:59 06:59 06:59 Intake Total 2800 / 2800 34.583 / 34.583 Output Total 350 / 350 Balance 2800 / 2800 -315.417 / -315.417 Weight 44.815 kg Vitals Last Vital Signs Temp 97.7 F 12/17/23 22:25 Pulse 122 H 12/18/23 08:25 Resp 16 12/18/23 10:28 BP 101/68 12/18/23 08:15 Pulse Ox 94 12/18/23 08:25 O2 Del Method Nasal Cannula 12/18/23 08:25 O2 Flow Rate 2 12/18/23 08:25 TS Medications Medications Albuterol/Ipratropium (Ipratropium-Albuterol 3 Ml Neb) 3 ml INHALATION Q4H.RESPIRATORY [facility]ORY Last Admin: 12/18/23 08:24 Dose: 3 ml Alprazolam (Alprazolam 0.5 Mg Tablet) 0.5 mg PO TID PRN PRN Reason: Anxiety Last Admin: 12/18/23 01:43 Dose: 0.5 mg Atorvastatin Calcium (Atorvastatin 40 Mg Tablet) 40 mg PO BEDTIME [facility] Folic Acid (Folic Acid 1 Mg Tablet) 1 mg PO DAILY [facility] Last Admin: 12/18/23 07:52 Dose: 1 mg Sodium Chloride (Sodium Chloride 0.9%) 1,000 mls @ 75 mls/hr IV .[id number] [facility] Last Admin: 12/18/23 07:51 Dose: 125 mls/hr Vancomycin HCl 750 mg/ Sodium (Chloride) 250 mls @ 250 mls/hr IV Q12H [facility] Last Admin: 12/18/23 10:34 Dose: 250 mls/hr Piperacillin Sod/Tazobactam (Sod 3.375 gm/ Sodium Chloride) 50 mls @ 12.5 mls/hr IV Q8H [facility] Last Infusion: 12/18/23 10:35 Dose: 0 mls/hr Morphine Sulfate (Morphine 4 Mg/Ml Sdv 1 Ml) 2 mg IVP Q4H PRN PRN Reason: SEVERE PAIN Last Admin: 12/18/23 07:43 Dose: 2 mg Multivitamins Therapeutic (Multivitamin Therapeutic Tablet) 1 tab PO DAILY [facility] Last Admin: 12/18/23 07:52 Dose: 1 tab Naloxone HCl (Naloxone 0.4 Mg/Ml Sdv) 0.1 mg IVP Q2M PRN PRN Reason: OPIATERV Ondansetron HCl (Ondansetron 2 Mg/Ml Sdv 2 Ml) 4 mg IVP Q8H PRN PRN Reason: vomiting, or N/V if npo Oxycodone/Acetaminophen (Oxycodone-Apap 5-325 Mg Tablet) 1 tab PO Q4H PRN PRN Reason: MODERATE PAIN Last Admin: 12/18/23 10:28 Dose: 1 tab Pantoprazole Sodium (Pantoprazole 40 Mg Sdv) 40 mg IVP Q24H [facility] Last Admin: 12/17/23 22:59 Dose: 40 mg Thiamine Mononitrate (Thiamine 100 Mg Tablet) 100 mg PO DAILY [facility] Last Admin: 12/18/23 07:52 Dose: 100 mg Discontinued Medications Acetaminophen (Acetaminophen 500 Mg Tablet) 1,000 mg PO ONCE ONE Stop: 12/17/23 15:57 Last Admin: 12/17/23 16:01 Dose: 1,000 mg Albuterol Sulfate (Albuterol 8 Gm Mdi) 1 puff INHALATION ONCE ONE Stop: 12/17/23 19:47 Last Admin: 12/17/23 21:20 Dose: 1 puff Sodium Chloride (Sodium Chloride 0.9%) 500 mls @ 999 mls/hr IV .Q31M ONE Stop: 12/17/23 15:59 Last Infusion: 12/17/23 17:35 Dose: Infused Sodium Chloride (Sodium Chloride 0.9%) 1,000 mls @ 999 mls/hr IV .Q1H1M ONE Stop: 12/17/23 20:30 Last Infusion: 12/17/23 21:48 Dose: Infused Vancomycin HCl / Sodium (Chloride) 250 mls @ 0 mls/hr [id number] PROTOCOL [facility]; Protocol Piperacillin Sod/Tazobactam (Sod / Sodium Chloride) 50 mls @ 0 mls/hr [id number] CONT [facility]; Protocol Vancomycin HCl 1,000 mg/ (Sodium Chloride) 250 mls @ 250 mls/hr IV ONCE ONE Stop: 12/17/23 23:44 Last Infusion: 12/18/23 01:37 Dose: Infused Propofol (Diprivan) 1,000 mg in 100 mls @ 0 mls/hr IV .Q0M [facility]; Protocol Fentanyl (Sublimaze) 1,000 mcg in 100 mls @ 0 mls/hr IV .Q0M [facility]; Protocol Iohexol (Iohexol 350 Mg/Ml 500 Ml Btl (Per Ml)) 0 ml IV ONCE ONE Stop: 12/17/23 17:53 Last Admin: 12/17/23 17:53 Dose: 90 ml Ketorolac Tromethamine (Ketorolac 30 Mg/Ml Inj) 15 mg IVP ONCE ONE Stop: 12/17/23 19:46 Last Admin: 12/17/23 19:52 Dose: 15 mg Allergies No Known Allergies Allergy (Verified 12/17/23 14:23) Home Medications amlodipine 5 mg tablet (Norvasc) 5 mg PO BID #60 tabs 09/07/23 [Rx Confirmed 12/18/23] clopidogrel 75 mg tablet 75 mg PO DAILY #21 tabs 09/07/23 [Rx Confirmed 12/18/23] atorvastatin 40 mg tablet 40 mg PO BEDTIME 10/26/23 [History Confirmed 12/18/23] ipratropium 0.5 mg-albuterol 3 mg (2.5 mg base)/3 mL nebulization soln 3 ml inhalation Q4H PRN Shortness Of Breath 10/26/23 [History Confirmed 12/18/23] losartan 50 mg tablet 50 mg PO DAILY 10/26/23 [History Confirmed 12/18/23] umeclidinium 62.5 mcg-vilanterol 25 mcg/actuation powdr for inhalation (Anoro Ellipta) 1 inh inhalation DAILY 10/26/23 [History Confirmed 12/18/23] pantoprazole 40 mg tablet,delayed release (Protonix) 40 mg PO DAILY #30 tabs 10/28/23 [Rx Confirmed 12/18/23] alprazolam 0.5 mg tablet 0.5 mg PO TID PRN Anxiety #10 tabs 12/09/23 [Rx Confirmed 12/18/23] folic acid 1 mg tablet 1 mg PO DAILY #90 tabs 12/09/23 [Rx Confirmed 12/18/23] guaifenesin 100 mg/5 mL oral liquid 400 mg (20 mL) PO Q4H PRN Cough #473 mL 12/09/23 [Rx Confirmed 12/18/23] linezolid 600 mg tablet 600 mg PO Q12H #14 tabs 12/09/23 [Rx Confirmed 12/18/23] multivitamin with folic acid 400 mcg tablet (Thera) 1 tab PO DAILY #90 tabs 12/09/23 [Rx Confirmed 12/18/23] prednisone 10 mg tablet 10 mg PO DAILY #4 tabs 12/09/23 [Rx Confirmed 12/18/23] thiamine mononitrate (vit B1) 100 mg tablet (Vitamin B-1 (mononitrate)) 100 mg PO DAILY #90 tabs 12/09/23 [Rx Confirmed 12/18/23] acetaminophen 500 mg tablet 500 mg PO Q6H PRN Pain 12/18/23 [History Confirmed 12/18/23] aluminum-mag hydroxide-simethicone 200 mg-200 mg-20 mg/5 mL oral susp (Aury- Lanta) 30 ml PO Q12H PRN heartburn/indigestion 12/18/23 [History Confirmed 12/18/23] bisacodyl 10 mg rectal suppository (Dulcolax (bisacodyl)) 10 mg RI DAILY PRN Constipation 12/18/23 [History Confirmed 12/18/23] magnesium hydroxide 400 mg/5 mL oral suspension (Milk of Magnesia) 30 ml PO DAILY PRN Constipation 12/18/23 [History Confirmed 12/18/23] metoprolol tartrate 50 mg tablet 50 mg PO BID 12/18/23 [History Confirmed 12/18/23] sodium phosphates 19 gram-7 gram/118 mL enema (Fleet Enema) 118 ml RI DAILY PRN Constipation 12/18/23 [History Confirmed 12/18/23] Discharge Plan Discharge Condition: Stable Prescriptions: No Action acetaminophen 500 mg Tablet 500 mg PO Q6H PRN (Reason: Pain) Milk of Magnesia 400 mg/5 mL Suspension 30 ml PO DAILY PRN (Reason: Constipation) Dulcolax (bisacodyl) 10 mg Suppository 10 mg RI DAILY PRN (Reason: Constipation) metoprolol tartrate 50 mg Tablet 50 mg PO BID Fleet Enema 19-7 gram/118 mL Enema 118 ml RI DAILY PRN (Reason: Constipation) Aury-Lanta 200-200-20 mg/5 mL Suspension 30 ml PO Q12H PRN (Reason: heartburn/indigestion) Rx Instructions: administer between meals and at bedtime clopidogrel 75 mg Tablet 75 mg PO DAILY Qty: 21 0RF amlodipine [Norvasc] 5 mg tablet 5 mg PO BID Qty: 60 0RF losartan 50 mg Tablet 50 mg PO DAILY atorvastatin 40 mg Tablet 40 mg PO BEDTIME ipratropium-albuterol 0.5 mg-3 mg(2.5 mg base)/3 mL Solution For Nebulization 3 ml INHALATION Q4H PRN (Reason: Shortness Of Breath) Anoro Ellipta 62.5-25 mcg/actuation Blister With Device 1 inh INHALATION DAILY pantoprazole [Protonix] 40 mg tablet,delayed release (DR/EC) 40 mg PO DAILY Qty: 30 0RF linezolid 600 mg tablet 600 mg PO Q12H Qty: 14 0RF prednisone 10 mg Tablet 10 mg PO DAILY Qty: 4 0RF guaifenesin 100 mg/5 mL Liquid 400 mg PO Q4H PRN (Reason: Cough) Qty: 473 0RF folic acid 1 mg Tablet 1 mg PO DAILY Qty: 90 0RF thiamine mononitrate (vit B1) [Vitamin B-1 (mononitrate)] 100 mg Tablet 100 mg PO DAILY Qty: 90 0RF multivitamin with folic acid [Thera] 400 mcg Tablet 1 tab PO DAILY Qty: 90 0RF alprazolam 0.5 mg Tablet 0.5 mg PO TID PRN (Reason: Anxiety) Qty: 10 0RF Discharge Orders: Transfer Out of Facility (Order); Ordered 12/18/23 Ordered By: Patel Schmitt Discharge Diet: Cardiac Discharge Activity: Increase activity as tolerated Patient Instructions: Opioid Safety Transfer Attestations Time Spent in Transfer Care: critical care time Critical Care Time (min): 60 Specific Discharge Activities: educating patient, discussing with pcp/other providers, discussing with porter sample case/social workers/dc planners, documenting/other paperwork and evaluating patient/reviewing data Status at Transfer: Cognitive status at transfer: cognitively intact ; Behavioral status at transfer: cooperative ; Functional status at transfer: uses cane/walker ; Overall status at transfer: patient is not back to baseline Quality Metrics Clinical Quality Measures [ No reported AMI, CVA or VTE this stay] Coding Level of Care Code Critical Care >/= 30 minutes Critical care time (in minutes): 60 The high probability of a clinically significant, sudden or life threatening deterioration, as referenced in this documentation, required my full and direct attention, intervention and personal management. The critical care time shown is in addition to time spent performing any reported separately billable procedures and includes the following: [x] Data and vital sign review and interpretation [x ] Patient assessment, examination and intervention [x] Medication orders and management [x] Patient/Family updates as able [x] Care Coordination and Documentation. Diagnoses Malignant pericardial effusion I31.31 Hypotension I95.9 Pericardial effusion I31.39 Pneumonia J18.9 Dehydration E86.0
[2023-12-18 13:44] LABS: Procalcitonin 0.03 ng/mL (0-0.5); Thyroid Stimulating Hormone 1.11 uIU/mL (0.27-4.20); Vitamin B12 459 pg/mL (232-1245)
[2023-12-18 13:55] LABS: Iron 151 ug/dL (37-145); Percent Saturation 73.3 % (20-50); Total Iron Binding Capacity 206 mcg/dl; Unsaturated Iron Binding 55 ug/dL (112-347)
--- NOTE | 2023-12-18 15:51 | PC.NURSE ---
called report to tara Hdez
--- NOTE | 2023-12-18 16:32 | PC.NURSE ---
[facility] left with patient heading to [facility] cvicu bed 5
== END 2023-12-18 16:35 | disposition short-term general hospital (02) | DRG 180 ==
LOC: ER 21:39 → ICU 21:44
PROVIDERS: Family Medicine; Admitting Provider Family Medicine; Emergency Provider Emergency Medicine; Visit Provider Student in an Organized Health Care Education/Training Program
DX: C34.11 Malignant neoplasm of upper lobe, right bronchus or lung (principal); J18.9 Pneumonia, unspecified organism; C79.70 Secondary malignant neoplasm of unspecified adrenal gland; I31.31 Malignant pericardial effusion in diseases classified elsewhere; J44.1 Chronic obstructive pulmonary disease with (acute) exacerbation; J44.0 Chronic obstructive pulmonary disease with (acute) lower respiratory infection; F17.210 Nicotine dependence, cigarettes, uncomplicated; I10 Essential (primary) hypertension; Z86.73 Personal history of transient ischemic attack (TIA), and cerebral infarction without residual deficits; E86.0 Dehydration; I95.9 Hypotension, unspecified; R00.0 Tachycardia, unspecified
CPT/HCPCS: 36415; 71045; 71275; 74174; 80048; 80053; 81003; 81015; 82533; 82607; 83540; 83550; 83605; 83735; 83880; 84100; 84145; 84443; 85025; 85610; 86140; 87040; 93005; 93308; 94640; 94664; 96361; 96374; 99285; J1885; J2270; J2470; J2543; J3370; J3535; J7030; J7040; J7050